=== PATIENT | female | born 1940 | race Caucasian/White ===

== ENCOUNTER 2016-03-09 13:49 | Emergency (ER) | payer BC, MEDICARE ==
[2016-03-09] MEDS ORDERED: METHYLPREDNISOLONE INJ 125 MG/2 ML SDV IV ONE (14:59)
[2016-03-09] MEDS ORDERED: IPRATROPIUM/ALBUTEROL 0.5-2.5 MG/3 ML AMPUL NEB ONE (15:00)
[2016-03-09 15:06] LABS: ABSOLUTE EOSINOPHILS # (AUTO) 0.1 10^3/uL (0.0-0.6); ABSOLUTE LYMPHOCYTES (AUTO) 1.6 10^3/uL (0.5-4.7); ABSOLUTE MONOCYTES (AUTO) 0.4 10^3/uL (0.1-1.4); ABSOLUTE NEUT (AUTO) 5.9 10^3/uL (1.7-8.2); BASOPHILS % (AUTO) 0.3 % (0-2); EOSINOPHILS % (AUTO) 1.5 % (0-6); HEMATOCRIT 43.6 % (36.0-47.0); HEMOGLOBIN 14.7 g/dL (12.0-15.5); HGB HCT DIFFERENCE 0.5; LYMPHOCYTES % (AUTO) 19.9 % (13-45); MEAN CORPUSCULAR HEMOGLOBIN 29.8 pg (27.0-33.4); MEAN CORPUSCULAR HGB CONC 33.8 g/dL (32.0-36.0); MEAN CORPUSCULAR VOLUME 88 fl (80-97); RED BLOOD COUNT 4.93 10^6/uL (3.72-5.28); RED CELL DISTRIBUTION WIDTH 13.6 % (11.5-14.0); SEGMENTED NEUTROPHILS % (AUTO) 73.3 % (42-78); WHITE BLOOD COUNT 8.1 10^3/uL (4.0-10.5)
--- NOTE | 2016-03-09 15:06 | ER Document Report ---
ED Respiratory Problem - General Chief Complaint: Breathing Difficulty Stated Complaint: POSSIBLE RESPIRATORY DISTRESS Time seen by provider: 15:01 Mode of Arrival: Medic Information source: Patient TRAVEL OUTSIDE OF THE [place] IN LAST 30 DAYS: No - HPI Patient complains to provider of: COPD - pt with h/o COPD stopped smoking 2 years ago ("but I still sneak a few every now and then") with c/o wheezing and SOB over the past 2 days. EMS called and pt. given neb and she feels much better now. - Related Data Allergies/Adverse Reactions: oxymorphone HCl [From Opana] Allergy (Severe, Verified 11/25/10 13:44) tramadol [Tramadol] Adverse Reaction (Intermediate, Verified 07/17/11 11:54) Hallucinations Past Medical History - General Information source: Patient - Social History Smoking Status: Current Some Day Smoker Cigarette use (# per day): Yes Chew tobacco use (# tins/day): No Smoking Education Provided: Yes Drug Abuse: None Family History: Reviewed & Not Pertinent Patient has suicidal ideation: No Patient has homicidal ideation: No - Past Medical History Cardiac Medical History: Reports: Hx Atrial Fibrillation, Hx Congestive Heart Failure, Hx Hypercholesterolemia, Hx Hypertension Denies: Hx Coronary Artery Disease, Hx Heart Attack, Hx Peripheral Vascular Disease, Hx Pulmonary Embolism, Hx Heart Murmur Pulmonary Medical History: Reports: Hx COPD Denies: Hx Asthma, Hx Bronchitis, Hx Pneumonia, Hx Respiratory Failure, Hx Sleep Apnea, Hx Tuberculosis Neurological Medical History: Denies: Hx Cerebrovascular Accident, Hx Seizures Renal/ Medical History: Denies: Hx End Stage Renal Disease, Hx Kidney Stones, Hx Ovarian Cysts, Hx Peritoneal Dialysis, Hx Pelvic Inflammatory Disease Malignancy Medical History: Denies: Hx Breast Cancer, Hx Cervical Cancer, Hx Lung Cancer, Hx Ovarian Cancer GI Medical History: Reports: Hx Gastroesophageal Reflux Disease. Denies: Hx Crohn's Disease, Hx Hiatal Hernia, Hx Irritable Bowel, Hx Liver Failure, Hx Ulcer Musculoskeltal Medical History: Denies Hx Arthritis, Denies Hx Fibromyalgia, Denies Hx Multiple Sclerosis, Denies Hx Muscular Dystrophy Psychiatric Medical History: Denies: Hx Dementia Traumatic Medical History: Denies: Hx Fractures Past Surgical History: Reports: Hx Cardiac Surgery - Mitral Valve Replacement, Hx Tonsillectomy. Denies: Hx Appendectomy, Hx Bowel Surgery, Hx Section, Hx Cholecystectomy, Hx Colostomy, Hx Coronary Artery Bypass Graft, Hx Gastric Bypass Surgery, Hx Herniorrhaphy, Hx Hysterectomy, Hx Mastectomy, Hx Pacemaker, Hx Tubal Ligation - Immunizations Hx Diphtheria, Pertussis, Tetanus Vaccination: No Hx Pneumococcal Vaccination: 11/07/11 Review of Systems - Review of Systems Constitutional: No symptoms reported EENT: No symptoms reported Cardiovascular: No symptoms reported Respiratory: See HPI, Short of breath, Wheezing. denies: Cough Gastrointestinal: No symptoms reported Musculoskeletal: No symptoms reported Neurological/Psychological: No symptoms reported Physical Exam - Vital signs Vitals: Resp BP Pulse Ox 18 156/61 H 93 03/09/16 14:08 03/09/16 14:08 03/09/16 14:08 - General General appearance: Appears well In distress: None - HEENT Head: Normocephalic Mouth/Lips: Normal Mucous membranes: Normal Pharynx: Normal Neck: Normal - Respiratory Respiratory status: No respiratory distress Chest status: Nontender Breath sounds: Wheezing - min end-expiratory R>L Chest palpation: Normal - Cardiovascular Rhythm: Regular Heart sounds: Normal auscultation - Abdominal Inspection: Normal Tenderness: Nontender - Extremities General upper extremity: Normal inspection General lower extremity: Normal inspection - Neurological Neuro grossly intact: Yes Cognition: Normal Orientation: AAOx4 Speech: Normal Course - Re-evaluation Re-evalutation: 03/09/16 16:00 pt feels much better after nebs and steroids. No wheezing a time of d/c. Sats 96-99% Expressed desire to go home with daughter. - Vital Signs Vital signs: Temp Pulse Resp BP Pulse Ox 97.9 F 18 156/61 H 93 03/09/16 14:14 03/09/16 14:08 03/09/16 14:08 03/09/16 14:08 - Laboratory Result Diagrams: 03/09/16 14:37 03/09/16 14:37 Laboratory results interpreted by me: 03/09/16 14:37 Carbon Dioxide 31 H BUN 27 H Est GFR (Non-Af Amer) 52 L Glucose 119 H - Diagnostic Test Radiology reviewed: Reports reviewed - nad Discharge - Discharge Clinical Impression: COPD exacerbation, COPD exacerbation Condition: Stable Disposition: HOME, SELF-CARE Additional Instructions: rest, take meds as prescribed, return if worse Prescriptions: Azithromycin [Zithromax Tri-Cuco] 500 mg PO DAILY #1 pkg Methylprednisolone [Medrol Dosepack (4 mg/Tab) 21 Tab/Dosepak] 4 mg PO ASDIR PRN #21 tab.[id number] PRN Reason: Referrals: PASTORA VAZ MD [ACTIVE STAFF] - Follow up as needed
[2016-03-09 15:14] LABS: ALANINE AMINOTRANSFERASE 27 U/L (9-52); ALBUMIN 4.2 g/dL (3.5-5.0); ALKALINE PHOSPHATASE 81 U/L (38-126); ANION GAP 12 (5-19); ASPARTATE AMINO TRANSFERASE 22 U/L (14-36); BILIRUBIN,TOTAL 0.8 mg/dL (0.2-1.3); BLOOD UREA NITROGEN 27 mg/dL (7-20); CALCIUM 9.1 mg/dL (8.4-10.2); CARBON DIOXIDE 31 mmol/L (22-30); CHLORIDE 102 mmol/L (98-107); CREATININE RESULT 1.03 mg/dL (0.52-1.25); GLUCOSE 119 mg/dL (75-110); POTASSIUM 3.9 mmol/L (3.6-5.0); TOTAL PROTEIN 6.9 g/dL (6.3-8.2)
[2016-03-09 16:13] VITALS: BP 139/62
== END 2016-03-09 16:24 | disposition home or self-care (01) ==
LOC: ER 13:49
DX: J44.1 Chronic obstructive pulmonary disease with (acute) exacerbation (principal); F17.210 Nicotine dependence, cigarettes, uncomplicated; I48.91 Unspecified atrial fibrillation; I50.9 Heart failure, unspecified; E78.00 Pure hypercholesterolemia, unspecified; I10 Essential (primary) hypertension; K21.9 Gastro-esophageal reflux disease without esophagitis; Z88.6 Allergy status to analgesic agent; Z95.2 Presence of prosthetic heart valve
CPT/HCPCS: 94640; 99285; 36415; 85025; 80053; 71020; J7620

== ENCOUNTER 2016-07-10 10:38 | Inpatient (IN) | payer BC, MEDICARE ==
[2016-07-10] MEDS ORDERED: IPRATROPIUM/ALBUTEROL 0.5-2.5 MG/3 ML AMPUL NEB ONE ×2 (10:59→11:55)
[2016-07-10] MEDS ORDERED: METHYLPREDNISOLONE INJ 125 MG/2 ML SDV IV ONE (10:59)
--- NOTE | 2016-07-10 11:05 | ER Document Report ---
ED General - General Chief Complaint: Shortness Of Breath Stated Complaint: SHORTNESS OF BREATH Time seen by provider: 10:45 Mode of Arrival: Medic Information source: Patient Notes: 76-year-old female with 2 day history of shortness of breath cough productive of yellow sputum and dyspnea on exertion worse than her baseline. She reports she does not use oxygen at home. Her care physician Theresa Hernández. Patient reports history of congestive heart failure and COPD but for the past 2 days has had symptoms much worse than what she thinks is usual for those to the point now that she cannot and related to room without becoming too short of breath to continue. She denies fever, chills, nausea, vomiting, diarrhea, chest pain, abdominal pain, swelling to extremities, or waking. She reports yesterday she had some sharp pain in her upper back with coughing that resolved with a cough became better and has not recurred. Physical Exam: General: Alert, short of breath able to speak one or 2 words HEENT: Normocephalic. Atraumatic. PERRLA. Extraocular movements intact. Oropharynx clear. Neck: Supple. Non-tender. No JVD Respiratory: Tachypnea Diminished aeration throughout all lung foote scattered wheezes and no accessory muscle use nontender to palpation Cardiovascular: Regular rate and rhythm. PMI not displaced Abdominal: Normal Inspection. Soft, non-tender. No distension. Normal Bowel Sounds. Back: Non-tender. No deformity or step off. 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 Normal Mood. Skin: Warm. Dry. Normal color. TRAVEL OUTSIDE OF THE [place] IN LAST 30 DAYS: No - Related Data Allergies/Adverse Reactions: oxymorphone HCl [From Opana] Allergy (Severe, Verified 11/25/10 13:44) tramadol [Tramadol] Adverse Reaction (Intermediate, Verified 07/17/11 11:54) Hallucinations Past Medical History - Social History Smoking Status: Former Smoker Family History: Reviewed & Not Pertinent - Past Medical History Cardiac Medical History: Reports: Hx Atrial Fibrillation, Hx Congestive Heart Failure, Hx Hypercholesterolemia, Hx Hypertension Denies: Hx Coronary Artery Disease, Hx Heart Attack, Hx Peripheral Vascular Disease, Hx Pulmonary Embolism, Hx Heart Murmur Pulmonary Medical History: Reports: Hx COPD Denies: Hx Asthma, Hx Bronchitis, Hx Pneumonia, Hx Respiratory Failure, Hx Sleep Apnea, Hx Tuberculosis Neurological Medical History: Denies: Hx Cerebrovascular Accident, Hx Seizures Renal/ Medical History: Denies: Hx End Stage Renal Disease, Hx Kidney Stones, Hx Ovarian Cysts, Hx Peritoneal Dialysis, Hx Pelvic Inflammatory Disease Malignancy Medical History: Denies: Hx Breast Cancer, Hx Cervical Cancer, Hx Lung Cancer, Hx Ovarian Cancer GI Medical History: Reports: Hx Gastroesophageal Reflux Disease. Denies: Hx Crohn's Disease, Hx Hiatal Hernia, Hx Irritable Bowel, Hx Liver Failure, Hx Ulcer Musculoskeltal Medical History: Denies Hx Arthritis, Denies Hx Fibromyalgia, Denies Hx Multiple Sclerosis, Denies Hx Muscular Dystrophy Psychiatric Medical History: Denies: Hx Dementia Traumatic Medical History: Denies: Hx Fractures Past Surgical History: Reports: Hx Cardiac Surgery - Mitral Valve Replacement, Hx Tonsillectomy. Denies: Hx Appendectomy, Hx Bowel Surgery, Hx Section, Hx Cholecystectomy, Hx Colostomy, Hx Coronary Artery Bypass Graft, Hx Gastric Bypass Surgery, Hx Herniorrhaphy, Hx Hysterectomy, Hx Mastectomy, Hx Pacemaker, Hx Tubal Ligation - Immunizations Hx Diphtheria, Pertussis, Tetanus Vaccination: No Hx Pneumococcal Vaccination: 11/07/11 Review of Systems - Review of Systems Constitutional: Weight loss - Patient thinks she's lost weight over several months but doesn't know how much. denies: Chills, Fever EENT: denies: Ear pain, Nose pain, Throat pain Cardiovascular: See HPI Respiratory: See HPI Gastrointestinal: denies: Blood in vomit, Black stools, Rectal bleeding Genitourinary: denies: Burning, Dysuria Female Genitourinary: Post menopausal Musculoskeletal: denies: Back pain, Leg swelling Hematologic/Lymphatic: denies: Swollen glands Neurological/Psychological: Weakness - Neurologic related shortness of breath. denies: Numbness Physical Exam - Vital signs Vitals: Resp Pulse Ox 20 95 07/10/16 10:54 07/10/16 10:54 Course - Re-evaluation Re-evalutation: 07/10/16 13:43 Patient continues to have mild rhonchi after aggressive treatment in emergency department an oxygen saturation about 88% on room air with any attempted ambulation. At this point she is not safe for discharge. I discussed case with her physician Dr. Hernández requests ICU admission - Vital Signs Vital signs: Temp Pulse Resp BP Pulse Ox 98.5 F 21 H 97/46 L 93 07/10/16 12:00 07/10/16 13:01 07/10/16 13:01 07/10/16 13:01 - Laboratory Result Diagrams: 07/10/16 11:20 07/10/16 11:20 Laboratory results interpreted by me: 07/10/16 07/10/16 07/10/16 11:20 11:20 11:20 RDW 14.1 H Seg Neutrophils % 84.7 H Lymphocytes % 9.1 L PT 20.8 H APTT 39.8 H Sodium 136.0 L BUN 38 H Est GFR ( Amer) 58 L Est GFR (Non-Af Amer) 48 L Glucose 150 H Direct Bilirubin 0.5 H Creatine Kinase < 20 L NT-Pro-B Natriuret Pep Total Protein 6.0 L Albumin 3.4 L 07/10/16 11:20 RDW Seg Neutrophils % Lymphocytes % PT APTT Sodium BUN Est GFR ( Amer) Est GFR (Non-Af Amer) Glucose Direct Bilirubin Creatine Kinase NT-Pro-B Natriuret Pep 999 H Total Protein Albumin - Diagnostic Test Radiology reviewed: Image reviewed, Reports reviewed - EKG Interpretation by Me Additional EKG results interpreted by me: 07/10/16 11:52 EKG reviewed by myself shows sinus rhythm at 69 no acute changes no significant change 07/25/2015 Discharge - Discharge Clinical Impression: Acute respiratory failure with hypoxemia, Chronic obstructive pulmonary disease with acute exacerbation Condition: Fair Disposition: ADMITTED INPATIENT Admitting Provider: Edgar Unit Admitted: [facility]
[2016-07-10] MEDS ORDERED: CEFTRIAXONE 1 GM/D5W RTU 50 ML IV ONE (11:10)
[2016-07-10] MEDS: MAGNESIUM SULFATE/D5W 100 ML IV SCH ×2 (11:16→14:43)
[2016-07-10 11:46] LABS: ABSOLUTE EOSINOPHILS # (AUTO) 0.1 10^3/uL (0.0-0.6); ABSOLUTE LYMPHOCYTES (AUTO) 0.8 10^3/uL (0.5-4.7); ABSOLUTE MONOCYTES (AUTO) 0.5 10^3/uL (0.1-1.4); ABSOLUTE NEUT (AUTO) 7.4 10^3/uL (1.7-8.2); BASOPHILS % (AUTO) 0.3 % (0-2); EOSINOPHILS % (AUTO) 0.6 % (0-6); HEMATOCRIT 43.8 % (36.0-47.0); HEMOGLOBIN 14.5 g/dL (12.0-15.5); HGB HCT DIFFERENCE -0.3; LYMPHOCYTES % (AUTO) 9.1 % (13-45); MEAN CORPUSCULAR HEMOGLOBIN 30.2 pg (27.0-33.4); MEAN CORPUSCULAR VOLUME 91 fl (80-97); MONOCYTES % (AUTO) 5.3 % (3-13); RED BLOOD COUNT 4.79 10^6/uL (3.72-5.28); RED CELL DISTRIBUTION WIDTH 14.1 % (11.5-14.0); SEGMENTED NEUTROPHILS % (AUTO) 84.7 % (42-78); WHITE BLOOD COUNT 8.7 10^3/uL (4.0-10.5)
[2016-07-10 12:03] LABS: PROTHROMBIN TIME 20.8 SEC (11.4-15.4)
[2016-07-10 12:04] LABS: PARTIAL THROMBOPLASTIN TIME 39.8 SEC (23.5-35.8)
[2016-07-10 12:10] LABS: ALANINE AMINOTRANSFERASE 26 U/L (9-52); ALBUMIN 3.4 g/dL (3.5-5.0); ALKALINE PHOSPHATASE 67 U/L (38-126); ANION GAP 11 (5-19); ASPARTATE AMINO TRANSFERASE 14 U/L (14-36); BILIRUBIN,DIRECT 0.5 mg/dL (0.0-0.4); BILIRUBIN,TOTAL 0.7 mg/dL (0.2-1.3); BLOOD UREA NITROGEN 38 mg/dL (7-20); CARBON DIOXIDE 25 mmol/L (22-30); CHLORIDE 100 mmol/L (98-107); CREATININE RESULT 1.11 mg/dL (0.52-1.25); GLUCOSE 150 mg/dL (75-110); MAGNESIUM 2.3 mg/dL (1.6-2.3); POTASSIUM 4.6 mmol/L (3.6-5.0)
[2016-07-10 12:14] LABS: CREATINE KINASE < 20 U/L (30-135)
[2016-07-10 12:23] LABS: CREATINE KINASE MB < 0.22 ng/mL (<4.55); TROPONIN I < 0.012 ng/mL
--- NOTE | 2016-07-10 12:47 | EKG REPORT ---
SEVERITY:- NORMAL ECG - SINUS RHYTHM : Confirmed by: Wei Renner MD 10-Jul-2016 12:46:18
[2016-07-10] MEDS ORDERED: ACETAMINOPHEN 325 MG TABLET PO PRN (13:39)
[2016-07-10] MEDS ORDERED: METHYLPREDNISOLONE INJ 40 MG/1 ML SDV IV SCH (14:00)
[2016-07-10] MEDS: IPRATROPIUM/ALBUTEROL 0.5-2.5 MG/3 ML AMPUL NEB SCH ×2 (15:27→20:38)
[2016-07-10] MEDS ORDERED: DEXTROSE 50%-WATER 25 GM/50 ML DISP.SYRIN IV PRN ×2 (15:29)
[2016-07-10] MEDS ORDERED: DEXTROSE 40% GEL 15 GM TUBE PO PRN ×2 (15:29)
[2016-07-10] MEDS ORDERED: GLUCAGON,HUMAN RECOMB 1 MG INJ IM PRN (15:29)
[2016-07-10] MEDS ORDERED: (PENDING PHARMACY ID) (Oxycodone Hcl/Acetaminophen [Percocet 10-325 Mg Tablet] 1 EACH) PO PRN (16:42)
[2016-07-10] MEDS: METHYLPREDNISOLONE INJ 125 MG/2 ML SDV IV SCH ×2 (17:40→21:18)
--- NOTE | 2016-07-10 17:55 | PDOC H&P ---
History of Present Illness Admission Date/PCP: ANNA VILLA MD Patient complains of: sob History of Present Illness: FLORECITA REILLY is a 76 year old female 76-year-old female with a significant history of the mitral valve in a history of the chronic A. fib and history of the COPD and history of the smoker came to the emergency department with severe complaining of cough congestions and unable to complete since last 3-4 days. Patient and it was a department was given IV steroid and also giving nebulizer treatments and feeling much better. Patient's denied any chest pain denied any nausea no vomiting. pt is also very noncompliance and and not follow properly for Coumadin to her cardiology Patient is not checking the Coumadin since last 2 months and patient's current INR was 1.7 to Patient also seen Dr. Cervantes at the [facility] Patient's daughter was on the bedside and patient's currently expressed a no code Past Medical History Cardiac Medical History: Reports: Atrial Fibrillation, Congestive Heart Failure , Hyperlipidema, Hypertension Denies: Coronary Artery Disease, Myocardial Infarction, Peripheral Vascular Disease, Pulmonary Embolism, Heart Murmur Cardiac History Note: mitral valve replacement Pulmonary Medical History: Reports: Chronic Obstructive Pulmonary Disease (COPD) Denies: Asthma, Bronchitis, Pneumonia, Respiratory Failure, Sleep Apnea, Tuberculosis Neurological Medical History: Denies: Seizures Endocrine Medical History: Reports: Other Endocrine History Note: impair fastig glucose last a1c was 6 Renal/ Medical History: Denies: End Stage Renal Disease Malignancy Medical History: Denies: Breast Cancer, Cervical Cancer, Lung Cancer, Ovarian Cancer GI Medical History: Reports: Gastroesophageal Reflux Disease Denies: Crohn's Disease, Hiatal Hernia Musculoskeltal Medical History: Denies: Arthritis, Fibromyalgia Psychiatric Medical History: Denies: Dementia Hematology: Denies: Anemia Past Surgical History Past Surgical History: Reports: Tonsillectomy, Valve Replacement Denies: Amputation, Appendectomy, Section, Cholecystectomy, Colostomy, Coronary Artery Bypass Graft, Gastric Bypass Surgery, Herniorrhaphy, Hysterectomy, Mastectomy, Pacemaker, Tubal Ligation Social History Smoking Status: Current Every Day Smoker Frequency of Alcohol Use: None Hx Recreational Drug Use: No Drugs: None Hx Prescription Drug Abuse: No Family History Family History: Reviewed & Not Pertinent Parental Family History Reviewed: Yes Children Family History Reviewed: Yes Sibling(s) Family History Reviewed.: Yes Medication/Allergy Home Medications: Budesonide/Formoterol Fumarate [Symbicort Hfa 160-4.5 Mcg Inhaler 6 gm] 1 puff IH DAILY 07/10/16 Carvedilol [Coreg 25 mg Tablet] 25 mg PO Q12 07/10/16 Dofetilide [Tikosyn 125 Mcg Capsule] 125 mcg PO Q12 07/10/16 Furosemide [Lasix] 40 mg PO DAILY 07/10/16 Lisinopril [Prinivil 10 mg Tablet] 10 mg PO Q12 07/10/16 Oxycodone HCl/Acetaminophen [Percocet 10-325 Mg Tablet] 1 each PO TIDP PRN 07/10 Warfarin Sodium [Coumadin 4 mg Tablet] 4 mg PO QHS 07/10/16 Allergies/Adverse Reactions: oxymorphone HCl [From Opana] Allergy (Severe, Verified 11/25/10 13:44) tramadol [Tramadol] Adverse Reaction (Intermediate, Verified 07/17/11 11:54) Hallucinations Review of Systems Constitutional: ABSENT: chills, fever(s), headache(s), weight gain, weight loss Eyes: ABSENT: visual disturbances Ears: ABSENT: hearing changes Cardiovascular: PRESENT: dyspnea on exertion. ABSENT: chest pain, edema, orthropnea, palpitations Respiratory: PRESENT: cough, dyspnea. ABSENT: hemoptysis Gastrointestinal: ABSENT: abdominal pain, constipation, diarrhea, hematemesis, hematochezia, nausea, vomiting Genitourinary: ABSENT: dysuria, hematuria Musculoskeletal: ABSENT: joint swelling Integumentary: ABSENT: rash, wounds Neurological: ABSENT: abnormal gait, abnormal speech, confusion, dizziness, focal weakness, syncope Psychiatric: ABSENT: anxiety, depression, homidical ideation, suicidal ideation Endocrine: ABSENT: cold intolerance, heat intolerance, menstrual abnormalities, polydipsia, polyuria Hematologic/Lymphatic: ABSENT: easy bleeding, easy bruising, lymphadenopathy Physical Exam Vital Signs: Temp Pulse Resp BP Pulse Ox 98.5 F 21 H 97/46 L 93 07/10/16 12:00 07/10/16 13:01 07/10/16 13:01 07/10/16 13:01 Intake & Output 07/09/16 07/10/16 07/11/16 06:59 06:59 06:59 Weight 74.843 kg General appearance: PRESENT: no acute distress, well-developed, well-nourished Head exam: PRESENT: atraumatic, normocephalic Eye exam: PRESENT: conjunctiva pink, EOMI, PERRLA. ABSENT: scleral icterus Ear exam: PRESENT: normal external ear exam Mouth exam: PRESENT: moist, tongue midline Neck exam: PRESENT: full ROM. ABSENT: carotid bruit, JVD, lymphadenopathy, thyromegaly Respiratory exam: PRESENT: wheezes Cardiovascular exam: PRESENT: RRR. ABSENT: diastolic murmur, rubs, systolic murmur Pulses: PRESENT: normal dorsalis pedis pul, +2 pedal pulses bilateral Vascular exam: PRESENT: normal capillary refill GI/Abdominal exam: PRESENT: normal bowel sounds, soft. ABSENT: distended, guarding, mass, organolmegaly, rebound, tenderness Rectal exam: PRESENT: deferred Neurological exam: PRESENT: alert, awake, oriented to person, oriented to place , oriented to time, oriented to situation, CN II-XII grossly intact. ABSENT: motor sensory deficit Psychiatric exam: PRESENT: appropriate affect, normal mood. ABSENT: homicidal ideation, suicidal ideation Skin exam: PRESENT: dry, intact, warm. ABSENT: cyanosis, rash Results Laboratory Results: 07/10/16 11:20 07/10/16 11:20 07/10/16 07/10/16 11:20 11:20 WBC 8.7 RBC 4.79 Hgb 14.5 Hct 43.8 MCV 91 MCH 30.2 MCHC 33.0 RDW 14.1 H Plt Count 160 Seg Neutrophils % 84.7 H Lymphocytes % 9.1 L Monocytes % 5.3 Eosinophils % 0.6 Basophils % 0.3 Absolute Neutrophils 7.4 Absolute Lymphocytes 0.8 Absolute Monocytes 0.5 Absolute Eosinophils 0.1 Absolute Basophils 0.0 Sodium 136.0 L Potassium 4.6 Chloride 100 Carbon Dioxide 25 Anion Gap 11 BUN 38 H Creatinine 1.11 Est GFR ( Amer) 58 L Est GFR (Non-Af Amer) 48 L Glucose 150 H Calcium 9.0 Magnesium 2.3 Total Bilirubin 0.7 AST 14 ALT 26 Alkaline Phosphatase 67 Total Protein 6.0 L Albumin 3.4 L 07/10/16 07/10/16 11:20 11:20 Creatine Kinase < 20 L CK-MB (CK-2) < 0.22 Troponin I < 0.012 NT-Pro-B Natriuret Pep 999 H Impressions: Chest X-Ray 07/10/16 10:58 IMPRESSION: No acute findings Assessment & Plan - Diagnosis (1) Acute exacerbation of chronic obstructive pulmonary disease (COPD) Is this a current diagnosis for this admission?: YesPlan: admit in [facility] start duoneb/solumedrol (2) Acute hypoxemic respiratory failure Is this a current diagnosis for this admission?: YesPlan: o2 supp duoneb steroid (3) CHF (congestive heart failure) Qualifiers: Congestive heart failure type: diastolic Is this a current diagnosis for this admission?: YesPlan: stable (4) Atrial fibrillation Qualifiers: Atrial fibrillation type: chronic Qualified Code(s): I48.2 - Chronic atrial fibrillation Is this a current diagnosis for this admission?: YesPlan: pt see dr cervantes at [facility] very non complince about coumadin (5) Shortness of breath Is this a current diagnosis for this admission?: YesPlan: from copd/smoker (6) History of mitral valve repair Is this a current diagnosis for this admission?: YesPlan: 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
[2016-07-10] MEDS: OXYCODONE-ACETAMINOPHEN 5-325 MG TABLET PO PRN (18:19)
[2016-07-10] MEDS: OXYCODONE HCL IR 5 MG TABLET PO PRN (18:20)
[2016-07-10] MEDS: LISINOPRIL 10 MG TABLET PO SCH (21:18)
[2016-07-10] MEDS: WARFARIN SODIUM 3 MG TABLET PO SCH (21:19)
[2016-07-10] MEDS: CARVEDILOL 12.5 MG TABLET PO SCH (21:19)
[2016-07-10] MEDS: DOFETILIDE 125 MCG CAPSULE PO SCH (21:41)
[2016-07-10] MEDS ORDERED: (PENDING PHARMACY ID) (Warfarin Sodium 6 MG) PO SCH (22:00)
[2016-07-10] MEDS: INSULIN LISPRO 100 UNIT/ML 3 ML VIAL SUBCUT PRN (23:26)
[2016-07-11] MEDS: OXYCODONE HCL IR 5 MG TABLET PO PRN ×3 (02:07→21:39)
[2016-07-11] MEDS: OXYCODONE-ACETAMINOPHEN 5-325 MG TABLET PO PRN ×3 (02:07→21:40)
[2016-07-11] MEDS: METHYLPREDNISOLONE INJ 125 MG/2 ML SDV IV SCH ×3 (05:20→21:40)
[2016-07-11 05:51] LABS: ABSOLUTE LYMPHOCYTES (AUTO) 0.6 10^3/uL (0.5-4.7); ABSOLUTE MONOCYTES (AUTO) 0.2 10^3/uL (0.1-1.4); ABSOLUTE NEUT (AUTO) 5.6 10^3/uL (1.7-8.2); BASOPHILS % (AUTO) 0.3 % (0-2); HEMATOCRIT 38.3 % (36.0-47.0); HEMOGLOBIN 13.3 g/dL (12.0-15.5); HGB HCT DIFFERENCE 1.6; LYMPHOCYTES % (AUTO) 9.1 % (13-45); MEAN CORPUSCULAR HEMOGLOBIN 30.6 pg (27.0-33.4); MEAN CORPUSCULAR HGB CONC 34.7 g/dL (32.0-36.0); MEAN CORPUSCULAR VOLUME 88 fl (80-97); MONOCYTES % (AUTO) 2.9 % (3-13); RED BLOOD COUNT 4.33 10^6/uL (3.72-5.28); RED CELL DISTRIBUTION WIDTH 13.8 % (11.5-14.0); SEGMENTED NEUTROPHILS % (AUTO) 87.7 % (42-78); WHITE BLOOD COUNT 6.4 10^3/uL (4.0-10.5)
[2016-07-11 06:13] LABS: ANION GAP 10 (5-19); BLOOD UREA NITROGEN 51 mg/dL (7-20); CALCIUM 10.1 mg/dL (8.4-10.2); CARBON DIOXIDE 27 mmol/L (22-30); CHLORIDE 99 mmol/L (98-107); CREATININE RESULT 1.12 mg/dL (0.52-1.25); GLUCOSE 169 mg/dL (75-110); MAGNESIUM 2.7 mg/dL (1.6-2.3); POTASSIUM 4.8 mmol/L (3.6-5.0); SODIUM 136.3 mmol/L (137-145)
[2016-07-11 06:27] LABS: CREATINE KINASE < 20 U/L (30-135)
[2016-07-11 06:35] LABS: TROPONIN I < 0.012 ng/mL
[2016-07-11] MEDS: INSULIN LISPRO 100 UNIT/ML 3 ML VIAL SUBCUT PRN ×4 (07:52→22:51)
[2016-07-11] MEDS: IPRATROPIUM/ALBUTEROL 0.5-2.5 MG/3 ML AMPUL NEB SCH ×4 (07:58→20:06)
[2016-07-11] MEDS: DOFETILIDE 125 MCG CAPSULE PO SCH ×2 (10:39→21:42)
[2016-07-11] MEDS: LISINOPRIL 10 MG TABLET PO SCH ×2 (10:40→21:40)
[2016-07-11] MEDS: FUROSEMIDE 40 MG TABLET PO SCH (10:40)
[2016-07-11] MEDS: CARVEDILOL 12.5 MG TABLET PO SCH ×2 (10:40→21:41)
[2016-07-11] MEDS: CEFTRIAXONE 1 GM/D5W RTU 1 GM/50 ML RTUPB IV SCH (10:41)
--- NOTE | 2016-07-11 14:13 | PDOC PROGRESS REPORT ---
Subjective Progress Note for:: 07/11/16 Subjective:: Patient reported improvement in her breathing. Less coughing. No chest pain. No nausea, vomiting, abdominal pain or diarrhea. Patient brought up issue of need to be checked for possible NTM infection? per her instruction via a mail from [facility]. No current fever, chills, or diaphoresis. Physical Exam Vital Signs: Temp Pulse Resp BP Pulse Ox 98.4 F 72 17 123/47 L 95 07/11/16 11:21 07/11/16 12:00 07/11/16 12:00 07/11/16 11:21 07/11/16 11:21 Intake & Output 07/10/16 07/11/16 07/12/16 06:59 06:59 06:59 Intake Total 611 Balance 611 Weight 73.3 kg General appearance: PRESENT: no acute distress, cooperative Head exam: PRESENT: atraumatic, normocephalic Eye exam: PRESENT: conjunctiva pink, EOMI, PERRLA. ABSENT: scleral icterus Respiratory exam: PRESENT: decreased breath sounds - at lung bases, rhonchi - end expiratory phase Cardiovascular exam: PRESENT: RRR. ABSENT: diastolic murmur, rubs, systolic murmur GI/Abdominal exam: PRESENT: normal bowel sounds, soft. ABSENT: distended, guarding, mass, organolmegaly, rebound, tenderness Extremities exam: ABSENT: pedal edema Musculoskeletal exam: PRESENT: deformity - related to joint involvement with arthritis Neurological exam: PRESENT: alert, awake, oriented to person, oriented to place , oriented to time, oriented to situation, CN II-XII grossly intact. ABSENT: motor sensory deficit Psychiatric exam: PRESENT: appropriate affect, normal mood. ABSENT: homicidal ideation, suicidal ideation Skin exam: PRESENT: dry, intact, warm. ABSENT: cyanosis, rash Results Laboratory Results: 07/11/16 05:39 07/11/16 05:39 07/11/16 07/11/16 05:39 05:39 WBC 6.4 RBC 4.33 Hgb 13.3 Hct 38.3 MCV 88 MCH 30.6 MCHC 34.7 RDW 13.8 Plt Count 149 L Seg Neutrophils % 87.7 H Lymphocytes % 9.1 L Monocytes % 2.9 L Eosinophils % 0.0 Basophils % 0.3 Absolute Neutrophils 5.6 Absolute Lymphocytes 0.6 Absolute Monocytes 0.2 Absolute Eosinophils 0.0 Absolute Basophils 0.0 Sodium 136.3 L Potassium 4.8 Chloride 99 Carbon Dioxide 27 Anion Gap 10 BUN 51 H Creatinine 1.12 Est GFR ( Amer) 57 L Est GFR (Non-Af Amer) 47 L Glucose 169 H Calcium 10.1 Magnesium 2.7 H 07/10/16 07/10/16 07/10/16 17:21 17:21 23:24 Creatine Kinase 22 L < 20 L Troponin I < 0.012 NT-Pro-B Natriuret Pep 07/10/16 07/11/16 07/11/16 23:24 05:39 05:39 Creatine Kinase < 20 L Troponin I < 0.012 < 0.012 NT-Pro-B Natriuret Pep 990 H Impressions: Chest X-Ray 07/10/16 10:58 IMPRESSION: No acute findings Assessment & Plan - Diagnosis (1) Gram-positive cocci bacteremia Is this a current diagnosis for this admission?: YesPlan: Mainly in 1 bottle of blood culture. Maintain on IV Rocephin and add IV Levofloxacin. (2) HTN (hypertension) Qualifiers: Hypertension type: essential hypertension Qualified Code(s): I10 - Essential (primary) hypertension Is this a current diagnosis for this admission?: YesPlan: Maintain on current medication management. (3) HLD (hyperlipidemia) Qualifiers: Hyperlipidemia type: pure hypercholesterolemia Qualified Code(s): E78.00 - Pure hypercholesterolemia, unspecified; E78.0 - Pure hypercholesterolemia Is this a current diagnosis for this admission?: YesPlan: See covering attending physician. (4) Acute exacerbation of chronic obstructive pulmonary disease (COPD) Is this a current diagnosis for this admission?: YesPlan: Maintain on current medication management. I will stat tapering down on her IV Solu Medrol. (5) Atrial fibrillation Qualifiers: Atrial fibrillation type: chronic Qualified Code(s): I48.2 - Chronic atrial fibrillation Is this a current diagnosis for this admission?: YesPlan: Continue on current mediation management. Monitor INR and adjust dosage of Coumadin as necessary. 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
[2016-07-11] MEDS: LEVOFLOXACIN 500 MG/D5W RTU 500 MG/100 ML RTUPB IV SCH (15:41)
[2016-07-11] MEDS ORDERED: SENNOSIDES/DOCUSATE 8.6-50 MG 1 EACH TABLET PO ONE (18:00)
[2016-07-11] MEDS: WARFARIN SODIUM 3 MG TABLET PO SCH (21:41)
[2016-07-12] MEDS: METHYLPREDNISOLONE INJ 125 MG/2 ML SDV IV SCH ×2 (05:34→13:46)
[2016-07-12 06:39] LABS: ABSOLUTE LYMPHOCYTES (AUTO) 0.9 10^3/uL (0.5-4.7); ABSOLUTE MONOCYTES (AUTO) 0.4 10^3/uL (0.1-1.4); ABSOLUTE NEUT (AUTO) 12.3 10^3/uL (1.7-8.2); BASOPHILS % (AUTO) 0.2 % (0-2); EOSINOPHILS % (AUTO) 0.1 % (0-6); HEMATOCRIT 37.9 % (36.0-47.0); HEMOGLOBIN 12.7 g/dL (12.0-15.5); HGB HCT DIFFERENCE 0.2; LYMPHOCYTES % (AUTO) 6.3 % (13-45); MEAN CORPUSCULAR HEMOGLOBIN 30.1 pg (27.0-33.4); MEAN CORPUSCULAR HGB CONC 33.4 g/dL (32.0-36.0); MEAN CORPUSCULAR VOLUME 90 fl (80-97); SEGMENTED NEUTROPHILS % (AUTO) 90.4 % (42-78)
[2016-07-12 06:53] LABS: WHITE BLOOD COUNT 13.6 10^3/uL (4.0-10.5)
[2016-07-12 06:58] LABS: ANION GAP 7 (5-19); BLOOD UREA NITROGEN 54 mg/dL (7-20); CALCIUM 10.4 mg/dL (8.4-10.2); CARBON DIOXIDE 28 mmol/L (22-30); CHLORIDE 101 mmol/L (98-107); CREATININE RESULT 1.08 mg/dL (0.52-1.25); GLUCOSE 143 mg/dL (75-110); MAGNESIUM 2.2 mg/dL (1.6-2.3); SODIUM 135.7 mmol/L (137-145)
[2016-07-12] MEDS: IPRATROPIUM/ALBUTEROL 0.5-2.5 MG/3 ML AMPUL NEB SCH ×4 (08:36→20:25)
[2016-07-12 08:37] LABS: PROTHROMBIN TIME 39.8 SEC (11.4-15.4)
[2016-07-12] MEDS: CARVEDILOL 12.5 MG TABLET PO SCH ×2 (11:11→21:11)
[2016-07-12] MEDS: FUROSEMIDE 40 MG TABLET PO SCH (11:11)
[2016-07-12] MEDS: OXYCODONE-ACETAMINOPHEN 5-325 MG TABLET PO PRN ×2 (11:12→19:35)
[2016-07-12] MEDS: LISINOPRIL 10 MG TABLET PO SCH ×2 (11:12→21:12)
[2016-07-12] MEDS: OXYCODONE HCL IR 5 MG TABLET PO PRN ×2 (11:12→19:35)
[2016-07-12] MEDS: DOFETILIDE 125 MCG CAPSULE PO SCH ×2 (11:12→21:14)
[2016-07-12] MEDS: CEFTRIAXONE 1 GM/D5W RTU 1 GM/50 ML RTUPB IV SCH (11:13)
[2016-07-12] MEDS: INSULIN LISPRO 100 UNIT/ML 3 ML VIAL SUBCUT PRN ×2 (12:58→17:07)
--- NOTE | 2016-07-12 14:21 | PDOC PROGRESS REPORT ---
Subjective Progress Note for:: 07/12/16 Subjective:: Patient reported improvement in her breathing. She is currently on room air with saturation in upper 90's. Less coughing. No chest pain. No nausea, vomiting , abdominal pain or diarrhea. No current fever, chills, or diaphoresis. Physical Exam Vital Signs: Temp Pulse Resp BP Pulse Ox 97.6 F 69 16 141/49 H 96 07/12/16 12:04 07/12/16 12:08 07/12/16 12:08 07/12/16 12:04 07/12/16 12:04 Intake & Output 07/11/16 07/12/16 07/13/16 06:59 06:59 06:59 Intake Total 848 947 100 Balance 848 947 100 Weight 73.3 kg 75.2 kg Physical Exam: General appearance: PRESENT: no acute distress, cooperative Head exam: PRESENT: atraumatic, normocephalic Eye exam: PRESENT: conjunctiva pink, EOMI, PERRLA. ABSENT: scleral icterus Respiratory exam: PRESENT: decreased breath sounds - at lung bases, rhonchi - end expiratory phase Cardiovascular exam: PRESENT: RRR. ABSENT: diastolic murmur, rubs, systolic murmur GI/Abdominal exam: PRESENT: normal bowel sounds, soft. ABSENT: distended, guarding, mass, organomegaly, rebound, tenderness Extremities exam: ABSENT: pedal edema Musculoskeletal exam: PRESENT: deformity - related to joint involvement with arthritis Neurological exam: PRESENT: alert, awake, oriented to person, oriented to place , oriented to time, oriented to situation, CN II-XII grossly intact. ABSENT: motor sensory deficit Psychiatric exam: PRESENT: appropriate affect, normal mood. ABSENT: homicidal ideation, suicidal ideation Skin exam: PRESENT: dry, intact, warm. ABSENT: cyanosis, rash Results Laboratory Results: 07/12/16 05:58 07/12/16 05:58 07/12/16 07/12/16 05:58 05:58 WBC 13.6 H D RBC 4.20 Hgb 12.7 Hct 37.9 MCV 90 MCH 30.1 MCHC 33.4 RDW 14.0 Plt Count 182 Seg Neutrophils % 90.4 H Lymphocytes % 6.3 L Monocytes % 3.0 Eosinophils % 0.1 Basophils % 0.2 Absolute Neutrophils 12.3 H Absolute Lymphocytes 0.9 Absolute Monocytes 0.4 Absolute Eosinophils 0.0 Absolute Basophils 0.0 Sodium 135.7 L Potassium 5.0 Chloride 101 Carbon Dioxide 28 Anion Gap 7 BUN 54 H Creatinine 1.08 Est GFR ( Amer) > 60 Est GFR (Non-Af Amer) 49 L Glucose 143 H Calcium 10.4 H Magnesium 2.2 07/10/16 07/10/16 07/10/16 17:21 17:21 23:24 Creatine Kinase 22 L < 20 L Troponin I < 0.012 NT-Pro-B Natriuret Pep 07/10/16 07/11/16 07/11/16 23:24 05:39 05:39 Creatine Kinase < 20 L Troponin I < 0.012 < 0.012 NT-Pro-B Natriuret Pep 990 H 07/12/16 05:58 Creatine Kinase Troponin I NT-Pro-B Natriuret Pep 2160 H Impressions: Chest X-Ray 07/10/16 10:58 IMPRESSION: No acute findings Assessment & Plan - Diagnosis (1) Gram-positive cocci bacteremia Is this a current diagnosis for this admission?: Yes (2) HTN (hypertension) Qualifiers: Hypertension type: essential hypertension Qualified Code(s): I10 - Essential (primary) hypertension Is this a current diagnosis for this admission?: Yes (3) HLD (hyperlipidemia) Qualifiers: Hyperlipidemia type: pure hypercholesterolemia Qualified Code(s): E78.00 - Pure hypercholesterolemia, unspecified; E78.0 - Pure hypercholesterolemia Is this a current diagnosis for this admission?: Yes (4) Acute exacerbation of chronic obstructive pulmonary disease (COPD) Is this a current diagnosis for this admission?: Yes (5) Atrial fibrillation Qualifiers: Atrial fibrillation type: chronic Qualified Code(s): I48.2 - Chronic atrial fibrillation Is this a current diagnosis for this admission?: Yes - Time Time Spent with patient: 25-34 minutes Medications reviewed and adjusted accordingly: Yes Anticipated discharge: Home with Homehealth - Inpatient Certification Medical Necessity: Need Close Monitoring Due to Risk of Patient Decompensation, Need For IV Fluids, Need For Continuous Telemetry Monitoring, Need for IV Antibiotics, Risk of Complication if Not Cared For in Hospital Post Hospital Care: D/C Street And Building Decorator Documentation - Plan Summary Plan Summary: See covering physician orders.
[2016-07-12] MEDS: LEVOFLOXACIN 500 MG/D5W RTU 500 MG/100 ML RTUPB IV SCH (15:57)
[2016-07-12] MEDS: WARFARIN SODIUM 3 MG TABLET PO SCH (21:12)
[2016-07-12] MEDS: METHYLPREDNISOLONE INJ 40 MG/1 ML SDV IV SCH (21:12)
[2016-07-13] MEDS: OXYCODONE-ACETAMINOPHEN 5-325 MG TABLET PO PRN ×3 (03:19→22:57)
[2016-07-13] MEDS: OXYCODONE HCL IR 5 MG TABLET PO PRN ×2 (03:19→22:56)
[2016-07-13 05:32] LABS: ABSOLUTE LYMPHOCYTES (AUTO) 0.8 10^3/uL (0.5-4.7); ABSOLUTE MONOCYTES (AUTO) 0.3 10^3/uL (0.1-1.4); ABSOLUTE NEUT (AUTO) 10.5 10^3/uL (1.7-8.2); BASOPHILS % (AUTO) 0.2 % (0-2); HEMATOCRIT 37.5 % (36.0-47.0); HEMOGLOBIN 12.9 g/dL (12.0-15.5); HGB HCT DIFFERENCE 1.2; LYMPHOCYTES % (AUTO) 6.5 % (13-45); MEAN CORPUSCULAR HEMOGLOBIN 30.7 pg (27.0-33.4); MEAN CORPUSCULAR HGB CONC 34.4 g/dL (32.0-36.0); MEAN CORPUSCULAR VOLUME 89 fl (80-97); MONOCYTES % (AUTO) 2.7 % (3-13); RED BLOOD COUNT 4.21 10^6/uL (3.72-5.28); RED CELL DISTRIBUTION WIDTH 13.6 % (11.5-14.0); SEGMENTED NEUTROPHILS % (AUTO) 90.6 % (42-78); WHITE BLOOD COUNT 11.6 10^3/uL (4.0-10.5)
[2016-07-13 06:00] LABS: ANION GAP 10 (5-19); BLOOD UREA NITROGEN 48 mg/dL (7-20); CALCIUM 9.6 mg/dL (8.4-10.2); CARBON DIOXIDE 28 mmol/L (22-30); CHLORIDE 99 mmol/L (98-107); CREATININE RESULT 0.97 mg/dL (0.52-1.25); GLUCOSE 176 mg/dL (75-110); POTASSIUM 4.6 mmol/L (3.6-5.0); SODIUM 136.9 mmol/L (137-145)
[2016-07-13] MEDS: METHYLPREDNISOLONE INJ 40 MG/1 ML SDV IV SCH (06:30)
[2016-07-13 06:50] LABS: PROTHROMBIN TIME 50.9 SEC (11.4-15.4)
[2016-07-13] MEDS: INSULIN LISPRO 100 UNIT/ML 3 ML VIAL SUBCUT PRN ×3 (08:19→23:08)
[2016-07-13] MEDS: IPRATROPIUM/ALBUTEROL 0.5-2.5 MG/3 ML AMPUL NEB SCH ×4 (08:31→20:11)
[2016-07-13] MEDS ORDERED: PREDNISONE 20 MG TABLET PO SCH (10:00)
[2016-07-13] MEDS: CEFTRIAXONE 1 GM/D5W RTU 1 GM/50 ML RTUPB IV SCH (10:17)
[2016-07-13] MEDS: FUROSEMIDE 40 MG TABLET PO SCH (10:18)
[2016-07-13] MEDS: CARVEDILOL 12.5 MG TABLET PO SCH ×2 (10:18→22:57)
[2016-07-13] MEDS: LISINOPRIL 10 MG TABLET PO SCH ×2 (10:18→22:56)
[2016-07-13] MEDS: DOFETILIDE 125 MCG CAPSULE PO SCH ×2 (10:19→22:57)
--- NOTE | 2016-07-13 10:20 | PDOC PROGRESS REPORT ---
Subjective Progress Note for:: 07/13/16 Subjective:: Patient is feeling better no chest pain no shortness of the breath patient INR is elevated Physical Exam Vital Signs: Temp Pulse Resp BP Pulse Ox 97.6 F 71 16 152/74 H 95 07/13/16 07:31 07/13/16 08:31 07/13/16 08:31 07/13/16 07:31 07/13/16 08:31 Intake & Output 07/12/16 07/13/16 07/14/16 06:59 06:59 06:59 Intake Total 947 1005 Balance 947 1005 Weight 75.2 kg 75.4 kg General appearance: PRESENT: no acute distress, well-developed, well-nourished Head exam: PRESENT: atraumatic, normocephalic Eye exam: PRESENT: conjunctiva pink, EOMI, PERRLA. ABSENT: scleral icterus Ear exam: PRESENT: normal external ear exam Mouth exam: PRESENT: moist, tongue midline Neck exam: PRESENT: full ROM. ABSENT: carotid bruit, JVD, lymphadenopathy, thyromegaly Respiratory exam: PRESENT: clear to auscultation dot Cardiovascular exam: PRESENT: RRR. ABSENT: diastolic murmur, rubs, systolic murmur Pulses: PRESENT: normal dorsalis pedis pul, +2 pedal pulses bilateral Vascular exam: PRESENT: normal capillary refill GI/Abdominal exam: PRESENT: normal bowel sounds, soft. ABSENT: distended, guarding, mass, organolmegaly, rebound, tenderness Rectal exam: PRESENT: deferred Neurological exam: PRESENT: alert, awake, oriented to person, oriented to place , oriented to time, oriented to situation, CN II-XII grossly intact. ABSENT: motor sensory deficit Psychiatric exam: PRESENT: appropriate affect, normal mood. ABSENT: homicidal ideation, suicidal ideation Skin exam: PRESENT: dry, intact, warm. ABSENT: cyanosis, rash Results Laboratory Results: 07/13/16 04:36 07/13/16 04:36 07/13/16 07/13/16 04:36 04:36 WBC 11.6 H RBC 4.21 Hgb 12.9 Hct 37.5 MCV 89 MCH 30.7 MCHC 34.4 RDW 13.6 Plt Count 194 Seg Neutrophils % 90.6 H Lymphocytes % 6.5 L Monocytes % 2.7 L Eosinophils % 0.0 Basophils % 0.2 Absolute Neutrophils 10.5 H Absolute Lymphocytes 0.8 Absolute Monocytes 0.3 Absolute Eosinophils 0.0 Absolute Basophils 0.0 Sodium 136.9 L Potassium 4.6 Chloride 99 Carbon Dioxide 28 Anion Gap 10 BUN 48 H Creatinine 0.97 Est GFR ( Amer) > 60 Est GFR (Non-Af Amer) 56 L Glucose 176 H Calcium 9.6 07/10/16 07/10/16 07/10/16 17:21 17:21 23:24 Creatine Kinase 22 L < 20 L Troponin I < 0.012 NT-Pro-B Natriuret Pep 07/10/16 07/11/16 07/11/16 23:24 05:39 05:39 Creatine Kinase < 20 L Troponin I < 0.012 < 0.012 NT-Pro-B Natriuret Pep 990 H 07/12/16 07/13/16 05:58 04:36 Creatine Kinase Troponin I NT-Pro-B Natriuret Pep 2160 H 2640 H Impressions: Chest X-Ray 07/13/16 00:00 IMPRESSION: Obstructive lung disease. No acute findings. Chronic scarring anterior right lower lung Assessment & Plan - Diagnosis (1) Acute exacerbation of chronic obstructive pulmonary disease (COPD) Is this a current diagnosis for this admission?: YesPlan: DC the IV Solu-Medrol and start on the p.o. prednisone and continues to nebulizer treatment (2) Acute hypoxemic respiratory failure Is this a current diagnosis for this admission?: YesPlan: Currently all stable discussed with the nursing staff to walk the patient's with and without oxygen (3) CHF (congestive heart failure) Qualifiers: Congestive heart failure type: diastolic Is this a current diagnosis for this admission?: YesPlan: stable (4) Atrial fibrillation Qualifiers: Atrial fibrillation type: chronic Qualified Code(s): I48.2 - Chronic atrial fibrillation Is this a current diagnosis for this admission?: YesPlan: And INR is high we hold the Coumadin today (5) Shortness of breath Is this a current diagnosis for this admission?: YesPlan: All resolving from the COPD (6) History of mitral valve repair Is this a current diagnosis for this admission?: YesPlan: Follow-up with the cardiology - Time Time Spent with patient: 15-24 minutes Medications reviewed and adjusted accordingly: Yes Anticipated discharge: Home Within: Other - Inpatient Certification Medical Necessity: Need Close Monitoring Due to Risk of Patient Decompensation Post Hospital Care: D/C Policy Officer Documentation - Plan Summary Plan Summary: Hold the Coumadin tonight and repeat the PT/INR in the morning get the physical therapy evaluations get the oxygen evaluations and DC the IV Solu-Medrol and start on a p.o. steroid
[2016-07-13] MEDS: LEVOFLOXACIN 500 MG TABLET PO SCH (14:53)
[2016-07-14 05:12] LABS: ANION GAP 6 (5-19); BLOOD UREA NITROGEN 43 mg/dL (7-20); CALCIUM 9.6 mg/dL (8.4-10.2); CARBON DIOXIDE 33 mmol/L (22-30); CHLORIDE 97 mmol/L (98-107); CREATININE RESULT 0.93 mg/dL (0.52-1.25); GLUCOSE 100 mg/dL (75-110); POTASSIUM 4.4 mmol/L (3.6-5.0)
[2016-07-14 05:16] LABS: HEMATOCRIT 38.4 % (36.0-47.0); HGB HCT DIFFERENCE 0.6; MEAN CORPUSCULAR HEMOGLOBIN 30.9 pg (27.0-33.4); MEAN CORPUSCULAR HGB CONC 33.8 g/dL (32.0-36.0); MEAN CORPUSCULAR VOLUME 91 fl (80-97); RED BLOOD COUNT 4.21 10^6/uL (3.72-5.28); RED CELL DISTRIBUTION WIDTH 13.7 % (11.5-14.0)
[2016-07-14 05:42] LABS: PROTHROMBIN TIME 50.8 SEC (11.4-15.4)
[2016-07-14 05:56] LABS: BAND NEUTROPHILS % (MANUAL) 2 % (3-5); BASOPHILS % (MANUAL) 0 % (0-2); EOSINOPHILS % (MANUAL) 0 % (0-6); LYMPHOCYTES % (MANUAL) 10 % (13-45); TOTAL CELLS COUNTED 100
[2016-07-14 05:59] LABS: RBC MORPHOLOGY COMMENT NORMO-CYTIC/CHROMIC
[2016-07-14] MEDS: IPRATROPIUM/ALBUTEROL 0.5-2.5 MG/3 ML AMPUL NEB SCH ×4 (08:18→19:56)
[2016-07-14] MEDS: LISINOPRIL 10 MG TABLET PO SCH ×2 (10:22→21:43)
[2016-07-14] MEDS: OXYCODONE-ACETAMINOPHEN 5-325 MG TABLET PO PRN ×2 (10:22→20:26)
[2016-07-14] MEDS: OXYCODONE HCL IR 5 MG TABLET PO PRN ×2 (10:23→20:25)
[2016-07-14] MEDS: FUROSEMIDE 40 MG TABLET PO SCH (10:23)
[2016-07-14] MEDS: CARVEDILOL 12.5 MG TABLET PO SCH ×2 (10:23→21:43)
[2016-07-14] MEDS: CEFTRIAXONE 1 GM/D5W RTU 1 GM/50 ML RTUPB IV SCH (10:24)
[2016-07-14] MEDS: DOFETILIDE 125 MCG CAPSULE PO SCH ×2 (10:26→21:43)
[2016-07-14] MEDS: PREDNISONE 20 MG TABLET PO SCH (10:27)
[2016-07-14] MEDS: LEVOFLOXACIN 500 MG TABLET PO SCH (14:19)
--- NOTE | 2016-07-14 16:02 | PDOC PROGRESS REPORT ---
Subjective Progress Note for:: 07/14/16 Subjective:: Patient is currently feeling much better patients walk in the hallway and O2 sat is running 92-94%'s. Patient's denied any wheezing denied any shortness of the breath denied any chest pain. Patient's INR is still little bit elevated Physical Exam Vital Signs: Temp Pulse Resp BP Pulse Ox 97.9 F 98 20 130/77 H 95 07/14/16 11:45 07/14/16 11:45 07/14/16 11:45 07/14/16 11:45 07/14/16 11:45 Intake & Output 07/13/16 07/14/16 07/15/16 06:59 06:59 06:59 Intake Total 1005 2166 536 Balance 1005 2166 536 Weight 75.4 kg 75 kg 75 kg General appearance: PRESENT: no acute distress, well-developed, well-nourished Head exam: PRESENT: atraumatic, normocephalic Eye exam: PRESENT: conjunctiva pink, EOMI, PERRLA. ABSENT: scleral icterus Ear exam: PRESENT: normal external ear exam Mouth exam: PRESENT: moist, tongue midline Neck exam: PRESENT: full ROM. ABSENT: carotid bruit, JVD, lymphadenopathy, thyromegaly Respiratory exam: PRESENT: clear to auscultation dot Cardiovascular exam: PRESENT: RRR. ABSENT: diastolic murmur, rubs, systolic murmur Pulses: PRESENT: normal dorsalis pedis pul, +2 pedal pulses bilateral Vascular exam: PRESENT: normal capillary refill GI/Abdominal exam: PRESENT: normal bowel sounds, soft. ABSENT: distended, guarding, mass, organolmegaly, rebound, tenderness Rectal exam: PRESENT: deferred Neurological exam: PRESENT: alert, awake, oriented to person, oriented to place , oriented to time, oriented to situation, CN II-XII grossly intact. ABSENT: motor sensory deficit Psychiatric exam: PRESENT: appropriate affect, normal mood. ABSENT: homicidal ideation, suicidal ideation Skin exam: PRESENT: dry, intact, warm. ABSENT: cyanosis, rash Results Laboratory Results: 07/14/16 04:27 07/14/16 04:27 07/14/16 07/14/16 04:27 04:27 WBC 13.0 H RBC 4.21 Hgb 13.0 Hct 38.4 MCV 91 MCH 30.9 MCHC 33.8 RDW 13.7 Plt Count 166 Seg Neutrophils % Not Reportable Lymphocytes % Not Reportable Monocytes % Not Reportable Eosinophils % Not Reportable Basophils % Not Reportable Absolute Neutrophils Not Reportable Absolute Lymphocytes Not Reportable Absolute Monocytes Not Reportable Absolute Eosinophils Not Reportable Absolute Basophils Not Reportable Sodium 136.0 L Potassium 4.4 Chloride 97 L Carbon Dioxide 33 H Anion Gap 6 BUN 43 H Creatinine 0.93 Est GFR ( Amer) > 60 Est GFR (Non-Af Amer) 59 L Glucose 100 Calcium 9.6 07/10/16 07/10/16 07/10/16 17:21 17:21 23:24 Creatine Kinase 22 L < 20 L Troponin I < 0.012 NT-Pro-B Natriuret Pep 07/10/16 07/11/16 07/11/16 23:24 05:39 05:39 Creatine Kinase < 20 L Troponin I < 0.012 < 0.012 NT-Pro-B Natriuret Pep 990 H 07/12/16 07/13/16 05:58 04:36 Creatine Kinase Troponin I NT-Pro-B Natriuret Pep 2160 H 2640 H Impressions: Chest X-Ray 07/13/16 00:00 IMPRESSION: Obstructive lung disease. No acute findings. Chronic scarring anterior right lower lung Assessment & Plan - Diagnosis (1) Acute exacerbation of chronic obstructive pulmonary disease (COPD) Is this a current diagnosis for this admission?: YesPlan: Currently on improving will cut down the p.o. steroid (2) Acute hypoxemic respiratory failure Is this a current diagnosis for this admission?: YesPlan: Discussed with the nursing staff to check the oxygen level while walking and also check the oxygen level at the nighttime (3) CHF (congestive heart failure) Qualifiers: Congestive heart failure type: diastolic Is this a current diagnosis for this admission?: YesPlan: stable (4) Atrial fibrillation Qualifiers: Atrial fibrillation type: chronic Qualified Code(s): I48.2 - Chronic atrial fibrillation Is this a current diagnosis for this admission?: YesPlan: And INR is high we hold the Coumadin today (5) Shortness of breath Is this a current diagnosis for this admission?: YesPlan: All resolved (6) History of mitral valve repair Is this a current diagnosis for this admission?: YesPlan: Follow-up with the cardiology - Time Time Spent with patient: 15-24 minutes Medications reviewed and adjusted accordingly: Yes Anticipated discharge: Home Within: Other - Inpatient Certification Medical Necessity: Need Close Monitoring Due to Risk of Patient Decompensation Post Hospital Care: D/C Ends Down Checker Documentation - Plan Summary Plan Summary: Continues to hold the Coumadin I think patients does not need any reverse the INR is pretty stable and if he tried to reverse this is go down and then had to come back so we just continues to monitor and hold the Coumadin and cut down the steroid and check the oxygen level before the discharge tomorrow if possible if remains stable
[2016-07-14] MEDS: INSULIN LISPRO 100 UNIT/ML 3 ML VIAL SUBCUT PRN ×2 (17:03→23:14)
[2016-07-15 06:09] LABS: PROTHROMBIN TIME 30.7 SEC (11.4-15.4)
[2016-07-15 06:21] LABS: ANION GAP 10 (5-19); BLOOD UREA NITROGEN 46 mg/dL (7-20); CALCIUM 9.5 mg/dL (8.4-10.2); CARBON DIOXIDE 32 mmol/L (22-30); CHLORIDE 97 mmol/L (98-107); CREATININE RESULT 0.94 mg/dL (0.52-1.25); GLUCOSE 89 mg/dL (75-110); POTASSIUM 4.2 mmol/L (3.6-5.0)
[2016-07-15] MEDS: IPRATROPIUM/ALBUTEROL 0.5-2.5 MG/3 ML AMPUL NEB SCH (08:16)
[2016-07-15] MEDS: LISINOPRIL 10 MG TABLET PO SCH (09:09)
[2016-07-15] MEDS: OXYCODONE HCL IR 5 MG TABLET PO PRN (09:09)
[2016-07-15] MEDS: PREDNISONE 20 MG TABLET PO SCH (09:10)
[2016-07-15] MEDS: OXYCODONE-ACETAMINOPHEN 5-325 MG TABLET PO PRN (09:10)
[2016-07-15] MEDS: FUROSEMIDE 40 MG TABLET PO SCH (09:10)
[2016-07-15] MEDS: CEFTRIAXONE 1 GM/D5W RTU 1 GM/50 ML RTUPB IV SCH (09:11)
[2016-07-15] MEDS: DOFETILIDE 125 MCG CAPSULE PO SCH (09:13)
[2016-07-15] MEDS: CARVEDILOL 12.5 MG TABLET PO SCH (09:15)
[2016-07-15 12:00] VITALS: BP 107/43
--- NOTE | 2016-07-15 12:58 | PDOC DISCHARGE SUMMARY ---
General - Admit/Disc Date/PCP Admission Date/Primary Care Provider: 07/10/16 13:39 ANNA VILLA MD Discharge Date: 07/15/16 - Discharge Diagnosis (1) Acute exacerbation of chronic obstructive pulmonary disease (COPD) Is this a current diagnosis for this admission?: YesSummary: Currently all resolving very extensive discussed with the patient about to using the Advair and the Spiriva but patient says she cannot afford any inhaler and see is not going to use it. Patient is already been prescribed the Symbicort and encourage the patient's to use it but patient's parents patient is a very noncompliance (2) Acute hypoxemic respiratory failure Is this a current diagnosis for this admission?: YesSummary: Patients probably need oxygen at nighttime but oxygen level is going to 88 we will prescribe the 1 or 2 L oxygen at night otherwise during the daytime patient does not need oxygen (3) CHF (congestive heart failure) Is this a current diagnosis for this admission?: YesSummary: Continues to current medications (4) Atrial fibrillation Is this a current diagnosis for this admission?: YesSummary: Currently stable patient INR is 2.8 and the Follow cardiology office on Wednesday to recheck INR again (5) Shortness of breath Is this a current diagnosis for this admission?: YesSummary: All resolved (6) History of mitral valve repair Is this a current diagnosis for this admission?: YesSummary: Follow with the cardiology - Additional Information Resuscitation Status: Full Code Discharge Activity: Activity As Tolerated, Balance Activity w/Rest, Weigh Daily Home Medications: Budesonide/Formoterol Fumarate [Symbicort HFA 160-4.5 mcg Inhaler 6 gm] 1 puff IH DAILY 07/10/16 Carvedilol [Coreg 25 mg Tablet] 25 mg PO Q12 07/10/16 Dofetilide [Tikosyn 125 Mcg Capsule] 125 mcg PO Q12 07/10/16 Furosemide [Lasix] 40 mg PO DAILY 07/10/16 Lisinopril [Prinivil 10 mg Tablet] 10 mg PO Q12 07/10/16 Oxycodone HCl/Acetaminophen [Percocet 10-325 mg Tablet] 1 each PO TIDP PRN 07/10 Warfarin Sodium [Coumadin 4 mg Tablet] 4 mg PO QHS 07/10/16 Cephalexin Monohydrate [Keflex 500 mg Capsule] 500 mg PO TID #15 capsule Ipratropium/Albuterol Sulfate [Duoneb 3 ml Ampul] 3 ml NEB [id number] PRN #0 vial.neb 07/15/16 Nebulizer [Nebulizer Machine] 1 each ASDIR PRN #1 kit 07/15/16 Prednisone [Deltasone 20 mg Tablet] 20 mg PO DAILY #5 tablet 07/15/16 History of Present Illness History of Present Illness: FLORECITA REILLY is a 76 year old female 76-year-old female with a significant history of the mitral valve in a history of the chronic A. fib and history of the COPD and history of the smoker came to the emergency department with severe complaining of cough congestions and unable to complete since last 3-4 days. Patient and it was a department was given IV steroid and also giving nebulizer treatments and feeling much better. Patient's denied any chest pain denied any nausea no vomiting. pt is also very noncompliance and and not follow properly for Coumadin to her cardiology Patient is not checking the Coumadin since last 2 months and patient's current INR was 1.7 to Patient also seen Dr. Watters at the [facility] Patient's daughter was on the bedside and patient's currently expressed a no code Hospital Course Hospital Course: This is a 76-year-old female basically a noncompliance not taking medication as prescribed even not checking the PT/INR as the spanish interpreter/translator office suggest came to the emergency department with the complaint of shortness of the breath cough congestion in patients diagnosed with acute bronchitis with COPD acute exacerbations and patient was put on IV steroid and nebulizerAnd IV antibiotic and the response very well. Patient was switched to the IV steroid to the p.o. steroid and the patient's to walk in the hallway without any oxygen and oxygen level is about 90 persons and patients denied any symptoms.Patient's need oxygen at night to 1 L Patients reaction discussed with the patient's about the continues use the inhaler because of the COPD but the patient says she cannot able to get it and she is not going to use it we also prescribed the patient's nebulizer machine oxygen and DuoNeb. Discussed with the patient and the daughter about all the patient's current conditions and the compliance of the medications and compliance with the checking the INR Physical Exam Vital Signs: Temp Pulse Resp BP Pulse Ox 98.6 F 86 18 107/43 L 94 07/15/16 11:58 07/15/16 11:58 07/15/16 11:58 07/15/16 11:58 07/15/16 11:58 Intake & Output 07/14/16 07/15/16 07/16/16 06:59 06:59 06:59 Intake Total 2166 1688 Balance 2166 1688 Weight 75 kg 73.8 kg General appearance: PRESENT: no acute distress, well-developed, well-nourished Head exam: PRESENT: atraumatic, normocephalic Eye exam: PRESENT: conjunctiva pink, EOMI, PERRLA. ABSENT: scleral icterus Ear exam: PRESENT: normal external ear exam Mouth exam: PRESENT: moist, tongue midline Neck exam: PRESENT: full ROM. ABSENT: carotid bruit, JVD, lymphadenopathy, thyromegaly Respiratory exam: PRESENT: clear to auscultation dot Cardiovascular exam: PRESENT: RRR. ABSENT: diastolic murmur, rubs, systolic murmur Pulses: PRESENT: normal dorsalis pedis pul, +2 pedal pulses bilateral Vascular exam: PRESENT: normal capillary refill GI/Abdominal exam: PRESENT: normal bowel sounds, soft. ABSENT: distended, guarding, mass, organolmegaly, rebound, tenderness Rectal exam: PRESENT: deferred Neurological exam: PRESENT: alert, awake, oriented to person, oriented to place , oriented to time, oriented to situation, CN II-XII grossly intact. ABSENT: motor sensory deficit Psychiatric exam: PRESENT: appropriate affect, normal mood. ABSENT: homicidal ideation, suicidal ideation Skin exam: PRESENT: dry, intact, warm. ABSENT: cyanosis, rash Results Laboratory Results: 07/14/16 04:27 07/15/16 05:14 07/15/16 05:14 Sodium 139.0 Potassium 4.2 Chloride 97 L Carbon Dioxide 32 H Anion Gap 10 BUN 46 H Creatinine 0.94 Est GFR ( Amer) > 60 Est GFR (Non-Af Amer) 58 L Glucose 89 Calcium 9.5 07/10/16 07/10/16 07/10/16 17:21 17:21 23:24 Creatine Kinase 22 L < 20 L Troponin I < 0.012 NT-Pro-B Natriuret Pep 05/05/17 05/06/17 05/06/17 23:24 05:39 05:39 Creatine Kinase < 20 L Troponin I < 0.012 < 0.012 NT-Pro-B Natriuret Pep 990 H 07/12/16 07/13/16 05:58 04:36 Creatine Kinase Troponin I NT-Pro-B Natriuret Pep 2160 H 2640 H Impressions: Chest X-Ray 07/13/16 00:00 IMPRESSION: Obstructive lung disease. No acute findings. Chronic scarring anterior right lower lung Plan Time Spent: Greater than 30 Minutes - Discharge the patient's with the stable conditions discuss all the test results with the patient and the daughter and also discussed about the compliance of the medications and check the INR as directed
== END 2016-07-15 12:16 | disposition home or self-care (01) | DRG 190 ==
LOC: ER 10:38 → EH 13:39 → UNDOADMIN 13:56 → EH 13:56 → 3S 16:10
PROVIDERS: ADMIT Family Medicine; ATTEND Family Medicine
DX: J44.1 Chronic obstructive pulmonary disease with (acute) exacerbation (principal); J96.01 Acute respiratory failure with hypoxia; I50.32 Chronic diastolic (congestive) heart failure; R78.81 Bacteremia; I11.0 Hypertensive heart disease with heart failure; I48.2 Chronic atrial fibrillation; E78.5 Hyperlipidemia, unspecified; K21.9 Gastro-esophageal reflux disease without esophagitis; F17.210 Nicotine dependence, cigarettes, uncomplicated; Z91.19 Patient's noncompliance with other medical treatment and regimen; Z79.01 Long term (current) use of anticoagulants; Z79.51 Long term (current) use of inhaled steroids; Z79.899 Other long term (current) drug therapy
CPT/HCPCS: 36415; 71010; 71020; 80048; 80053; 82550; 82553; 82962; 83735; 83880; 84484; 85025; 85610; 85730; 87040; 87070; 87077; 87186; 87205; 87804; 93005; 93010; 94640; 96365; 96367; 96375; 99285; J0696; J1815; J1956; J2920; J2930; J3475; J3490; J7512; J7620

== ENCOUNTER 2018-11-17 11:35 | Inpatient (IN) | payer BC, MEDICARE ==
[2018-11-17] MEDS ORDERED: IPRATROPIUM/ALBUTEROL 0.5-2.5 MG/3 ML AMPUL NEB ONE (11:51)
[2018-11-17] MEDS ORDERED: METHYLPREDNISOLONE INJ 125 MG/2 ML SDV IV ONE (11:51)
[2018-11-17 12:14] LABS: ABSOLUTE EOSINOPHILS # (AUTO) 0.1 10^3/uL (0.0-0.6); ABSOLUTE LYMPHOCYTES (AUTO) 1.4 10^3/uL (0.5-4.7); ABSOLUTE MONOCYTES (AUTO) 0.5 10^3/uL (0.1-1.4); ABSOLUTE NEUT (AUTO) 7.2 10^3/uL (1.7-8.2); BASOPHILS % (AUTO) 0.2 % (0-2); EOSINOPHILS % (AUTO) 1.4 % (0-6); HEMATOCRIT 37.4 % (36.0-47.0); HEMOGLOBIN 12.7 g/dL (12.0-15.5); LYMPHOCYTES % (AUTO) 14.6 % (13-45); MEAN CORPUSCULAR HEMOGLOBIN 30.8 pg (27.0-33.4); MEAN CORPUSCULAR HGB CONC 33.9 g/dL (32.0-36.0); MEAN CORPUSCULAR VOLUME 91 fl (80-97); MONOCYTES % (AUTO) 5.4 % (3-13); PLATELET COUNT 219 10^3/uL (150-450); RED BLOOD COUNT 4.12 10^6/uL (3.72-5.28); RED CELL DISTRIBUTION WIDTH 13.5 % (11.5-14.0); SEGMENTED NEUTROPHILS % (AUTO) 78.4 % (42-78); TOTAL CELLS COUNTED % (AUTO) 100 %; WHITE BLOOD COUNT 9.2 10^3/uL (4.0-10.5)
--- NOTE | 2018-11-17 12:24 | RADIOLOGY REPORT (SQ) ---
EXAM DESCRIPTION: CHEST SINGLE VIEW COMPLETED DATE/TIME: 11/17/2018 12:13 pm REASON FOR STUDY: t2 db COMPARISON: 07/13/2016. NUMBER OF VIEWS: One view. TECHNIQUE: Single frontal radiographic view of the chest acquired. LIMITATIONS: None. FINDINGS: LUNGS AND PLEURA: Chronic interstitial changes. No focal infiltrates, masses or pneumotho rax. No pleural effusion. Attenuated blood vessels and flattened thuan-diaphragms. MEDIASTINUM AND HILAR STRUCTURES: No masses. Contour normal. HEART AND VASCULAR STRUCTURES: Heart upper limits of normal in size. Normal vasculature. BONES: No acute findings. HARDWARE: Spinal stimulator hardware. OTHER: No other significant finding. IMPRESSION: COPD. CHRONIC SCARRING. NO ACUTE RADIOGRAPHIC FINDING IN THE CHEST. TECHNICAL DOCUMENTATION: JOB ID: [id number] [employer]- All Rights Reserved Reading location - IP/workstation name: [email or web address]
[2018-11-17 12:35] LABS: ALBUMIN 3.7 g/dL (3.5-5.0); ALKALINE PHOSPHATASE 61 U/L (38-126); ANION GAP 8 (5-19); ASPARTATE AMINO TRANSFERASE 17 U/L (14-36); BILIRUBIN,DIRECT 0.1 mg/dL (0.0-0.4); BILIRUBIN,TOTAL 0.5 mg/dL (0.2-1.3); BLOOD UREA NITROGEN 22 mg/dL (7-20); CALCIUM 8.9 mg/dL (8.4-10.2); CARBON DIOXIDE 28 mmol/L (22-30); CHLORIDE 103 mmol/L (98-107); CREATINE KINASE 25 U/L (30-135); GLUCOSE 111 mg/dL (75-110); POTASSIUM 4.4 mmol/L (3.6-5.0); TOTAL PROTEIN 6.2 g/dL (6.3-8.2)
[2018-11-17 12:39] LABS: CREATINE KINASE MB 0.41 ng/mL (<4.55)
[2018-11-17 12:40] LABS: TROPONIN I < 0.012 ng/mL
--- NOTE | 2018-11-17 13:06 | ER Document Report ---
Entered by ОЛЕГ LAROSE SCRIBE 11/17/18 1151 Acting as scribe for:GALO EAGLE MD ED Respiratory Problem - General Stated Complaint: WEAKNESS Time Seen by Provider: 11/17/18 11:42 Mode of Arrival: Ambulatory Information source: Patient Notes: 78-year-old female that presents to the emergency department today with complaints of shortness of breath. Patient was seen by her PCP yesterday and had a chest x-ray performed. Family called EMS today because of the patient became increasingly short of breath after walking to the kitchen. Patient is not on home oxygen. Patient smokes 1 pack/day. Patient states her cough is productive with a yellowish colored sputum. TRAVEL OUTSIDE OF THE [place] IN LAST 30 DAYS: No - Related Data Allergies/Adverse Reactions: oxymorphone HCl [From Opana] Allergy (Severe, Verified 11/25/10 13:44) tramadol [Tramadol] Adverse Reaction (Intermediate, Verified 07/17/11 11:54) Hallucinations Past Medical History - General Information source: Patient - Social History Smoking Status: Current Every Day Smoker Cigarette use (# per day): Yes Frequency of alcohol use: None Drug Abuse: None Lives with: Family Family History: Reviewed & Not Pertinent - Past Medical History Cardiac Medical History: Reports: Hx Atrial Fibrillation, Hx Congestive Heart Failure, Hx Hypercholesterolemia, Hx Hypertension Pulmonary Medical History: Reports: Hx COPD GI Medical History: Reports: Hx Gastroesophageal Reflux Disease Past Surgical History: Reports: Hx Cardiac Surgery - Mitral Valve Replacement, Hx Tonsillectomy, Hx Valve Replacement - Immunizations Hx Diphtheria, Pertussis, Tetanus Vaccination: No Hx Pneumococcal Vaccination: 11/07/11 Review of Systems - Review of Systems Constitutional: No symptoms reported EENT: No symptoms reported Cardiovascular: No symptoms reported Respiratory: See HPI, Cough, Short of breath, Wheezing Gastrointestinal: No symptoms reported Genitourinary: No symptoms reported Female Genitourinary: No symptoms reported Musculoskeletal: No symptoms reported Skin: No symptoms reported Hematologic/Lymphatic: No symptoms reported Neurological/Psychological: No symptoms reported -: Yes All other systems reviewed and negative Physical Exam - Vital signs Vitals: Resp Pulse Ox 23 H 97 11/17/18 11:46 11/17/18 11:46 - Notes Notes: Physical Exam: General: Alert, productive cough. HEENT: Normocephalic. Atraumatic. PERRL. Extraocular movements intact. Oropharynx clear. Neck: Supple. Non-tender. Respiratory: Wheezing and rhonchi bilaterally. Tachypneic. Cardiovascular: Regular rate and rhythm. Abdominal: Normal Inspection. Non-tender. No distension. Normal Bowel Sounds. Back: No gross abnormalities. Extremities: Moves all four extremities. Upper extremities: Normal inspection. Normal ROM. Lower extremities: Normal inspection. No edema. Normal ROM. Neurological: Normal cognition. AAOx4. Normal speech. Psychological: Normal affect. Normal Mood. Skin: Warm. Dry. Normal color. Course - Vital Signs Vital signs: Temp Pulse Resp BP Pulse Ox 98.6 F 17 160/65 H 97 11/17/18 12:13 11/17/18 14:01 11/17/18 14:01 11/17/18 14:01 - Laboratory Result Diagrams: 11/17/18 11:50 11/17/18 11:50 Laboratory results interpreted by me: 11/17/18 11/17/18 11/17/18 11:50 11:50 11:50 Seg Neutrophils % 78.4 H PT 26.3 H BUN 22 H Glucose 111 H Creatine Kinase 25 L Total Protein 6.2 L - Diagnostic Test Radiology reviewed: Image reviewed, Reports reviewed - Chest x-ray shows COPD with chronic scarring. Nothing acute. - EKG Interpretation by Ms EKG shows normal: Sinus rhythm, [place], Intervals, QRS Complexes, ST-T Waves Rate: Normal - 67 Rhythm: NSR - Consults Cheryl Norton NP Time consulted: 15:36 Consulted provider: will come to ER Critical Care Note - Critical Care Note Total time excluding time spent on procedures (mins): 35 Discharge - Discharge Clinical Impression: Acute exacerbation of chronic obstructive pulmonary disease (COPD) HTN (hypertension) Qualifiers: Hypertension type: essential hypertension Qualified Code(s): I10 - Essential (primary) hypertension Condition: Stable Disposition: ADMITTED INPATIENT Admitting Provider: Laura (Hospitalist) Unit Admitted: Medical Floor Scribe Attestation: 11/17/18 14:45 I personally performed the services described in the documentation, reviewed and edited the documentation which was dictated to the scribe in my presence, and it accurately records my words and actions. I personally performed the services described in the documentation, reviewed and edited the documentation which was dictated to the scribe in my presence, and it accurately records my words and actions.
[2018-11-17] MEDS ORDERED: ALBUTEROL SULFATE 0.083% NEB 2.5 MG/3 ML AMPUL NEB ONE ×2 (13:08→15:14)
[2018-11-17] MEDS: MAGNESIUM SULFATE/D5W 1 GM/100 ML RTUPB IV SCH ×2 (14:19→16:44)
[2018-11-17 15:31] LABS: INTERNATIONAL RATION (INR) 2.37; PROTHROMBIN TIME 26.3 SEC (11.4-15.4)
[2018-11-17] MEDS ORDERED: ACETAMINOPHEN 325 MG TABLET PO PRN (16:15)
[2018-11-17] MEDS ORDERED: IPRATROPIUM/ALBUTEROL 0.5-2.5 MG/3 ML AMPUL NEB PRN (16:15)
[2018-11-17] MEDS ORDERED: NORMAL SALINE 1000 ML 1,000 ML IV PRN (16:15)
[2018-11-17] MEDS ORDERED: MAG HYDROX/AL HYDROX/SIMETH SUSP 30 ML UDCUP PO PRN (16:28)
[2018-11-17] MEDS ORDERED: PROMETHAZINE HCL INJ 25 MG/1 ML VIAL IV PRN (16:28)
[2018-11-17] MEDS ORDERED: ONDANSETRON HCL INJ/PF 4 MG/2 ML SDV IV PRN (16:28)
[2018-11-17] MEDS ORDERED: NICOTINE 21 MG/24 HR PATCH.TD24 TD PRN (17:35)
--- NOTE | 2018-11-17 17:36 | PDOC H&P ---
History of Present Illness Admission Date/PCP: 11/17/18 15:58 Patient complains of: shortness of breath History of Present Illness: FLORECITA REILLY I is a 78 year old female with a past medical history of COPD, CHF, hypertension, CAD, A. fib, chronic anticoagulation on Coumadin, severe tobacco dependence, and opiate dependent chronic pain who presented to [facility] emergency department today with a complaint of 1 week of progressively worsening shortness of breath and productive cough. She is not home O2 dependent. Evaluation in the emergency department was essentially unremarkable with normal vital signs, benign CBC, therapeutic INR (2.37), unremarkable chemistry with normal troponin and lactic acid, EKG demonstrating normal sinus rhythm, and chest x-ray demonstrating COPD but no acute cardiopulmonary findings. Patient was provided IV magnesium, Solu-Medrol, nebulizer treatment, and supplemental oxygen. She continues to have dyspnea at rest with rhonchi and wheezing throughout. She is referred to the hospitalist service for admission and management of COPD exacerbation. Past Medical History Cardiac Medical History: Reports: Atrial Fibrillation, Congestive Heart Failure, Coronary Artery Disease, Hyperlipidema, Hypertension, Peripheral Vascular Disease Denies: Myocardial Infarction Pulmonary Medical History: Reports: Chronic Obstructive Pulmonary Disease (COPD) Neurological Medical History: Denies: Ischemic CVA, Seizures Endocrine Medical History: Denies: Diabetes Mellitus Type 2, Hypothyroidism Renal/ Medical History: Denies: Chronic Kidney Disease, End Stage Renal Disease Malignancy Medical History: Denies: Breast Cancer, Cervical Cancer, Lung Cancer, Ovarian Cancer GI Medical History: Reports: Gastroesophageal Reflux Disease Denies: Crohn's Disease, Hiatal Hernia Musculoskeltal Medical History: Denies: Arthritis, Fibromyalgia Psychiatric Medical History: Reports: Tobacco Dependency Denies: Dementia Hematology: Denies: Anemia Infectious Medical History: Reports: None Past Surgical History Past Surgical History: Reports: Tonsillectomy, Valve Replacement Denies: Cardiac Catheterization, Coronary Artery Bypass Graft, Coronary Stent Social History Information Source: Patient Lives with: Family Smoking Status: Current Every Day Smoker Cigarettes Packs Per Day: 1.5 Frequency of Alcohol Use: None Hx Recreational Drug Use: No Drugs: None Hx Prescription Drug Abuse: No - Advance Directive Resuscitation Status: Do Not Resuscitate Surrogate healthcare decision maker:: Patient's daughter, Nataly Weems, Family History Family History: Reviewed & Not Pertinent Parental Family History Reviewed: Yes Children Family History Reviewed: Yes Sibling(s) Family History Reviewed.: Yes Medication/Allergy Home Medications: Budesonide/Formoterol Fumarate [Symbicort HFA 160-4.5 mcg Inhaler 6 gm] 1 puff IH DAILY 07/10/16 Carvedilol [Coreg 25 mg Tablet] 25 mg PO Q12 07/10/16 Dofetilide [Tikosyn 125 Mcg Capsule] 125 mcg PO Q12 07/10/16 Furosemide [Lasix] 40 mg PO DAILY 07/10/16 Lisinopril [Prinivil 10 mg Tablet] 10 mg PO Q12 07/10/16 Oxycodone HCl/Acetaminophen [Percocet 10-325 mg Tablet] 1 each PO TIDP PRN 07/10/16 Warfarin Sodium [Coumadin 4 mg Tablet] 4 mg PO QHS 07/10/16 Cephalexin Monohydrate [Keflex 500 mg Capsule] 500 mg PO TID #15 capsule 07/15/16 Ipratropium/Albuterol Sulfate [Duoneb 3 ml Ampul] 3 ml NEB [id number] PRN #0 vial.neb 07/15/16 Nebulizer [Nebulizer Machine] 1 each MC ASDIR PRN #1 kit 07/15/16 Prednisone [Deltasone 20 mg Tablet] 20 mg PO DAILY #5 tablet 07/15/16 Allergies/Adverse Reactions: oxymorphone HCl [From Opana] Allergy (Severe, Verified 11/25/10 13:44) tramadol [Tramadol] Adverse Reaction (Intermediate, Verified 07/17/11 11:54) Hallucinations Review of Systems Constitutional: ABSENT: chills, fever(s), headache(s), weight gain, weight loss Eyes: ABSENT: visual disturbances Ears: ABSENT: hearing changes Cardiovascular: ABSENT: chest pain, dyspnea on exertion, edema, orthropnea, palpitations Respiratory: PRESENT: cough, dyspnea, sputum. ABSENT: hemoptysis Gastrointestinal: ABSENT: abdominal pain, constipation, diarrhea, hematemesis, hematochezia, nausea, vomiting Genitourinary: ABSENT: dysuria, hematuria Musculoskeletal: ABSENT: joint swelling Integumentary: ABSENT: rash, wounds Neurological: ABSENT: abnormal gait, abnormal speech, confusion, dizziness, focal weakness, syncope Psychiatric: ABSENT: anxiety, depression, homidical ideation, suicidal ideation Endocrine: ABSENT: cold intolerance, heat intolerance, polydipsia, polyuria Hematologic/Lymphatic: ABSENT: easy bleeding, easy bruising Physical Exam Vital Signs: Temp Pulse Resp BP Pulse Ox 98.6 F 20 105/68 95 11/17/18 12:13 11/17/18 17:02 11/17/18 16:03 11/17/18 17:14 Intake & Output 11/16/18 11/17/18 11/18/18 06:59 06:59 06:59 Intake Total 100 Balance 100 Weight 75.75 kg General appearance: PRESENT: no acute distress, disheveled, well-developed, well-nourished - overweight Head exam: PRESENT: atraumatic, normocephalic Eye exam: PRESENT: conjunctiva pink, EOMI, PERRLA. ABSENT: scleral icterus Ear exam: PRESENT: normal external ear exam Mouth exam: PRESENT: moist, tongue midline Neck exam: ABSENT: carotid bruit, JVD, lymphadenopathy, thyromegaly Respiratory exam: PRESENT: prolonged expiratory phas, rhonchi, symmetrical, unlabored, wheezes, other - supplemental oxygen via 2lpm. ABSENT: rales Cardiovascular exam: PRESENT: RRR, +S1, +S2. ABSENT: diastolic murmur, rubs, systolic murmur Pulses: PRESENT: normal dorsalis pedis pul Vascular exam: PRESENT: normal capillary refill GI/Abdominal exam: PRESENT: normal bowel sounds, soft. ABSENT: distended, guarding, mass, organolmegaly, rebound, tenderness Rectal exam: PRESENT: deferred Extremities exam: PRESENT: full ROM. ABSENT: calf tenderness, clubbing, pedal edema Neurological exam: PRESENT: alert, awake, oriented to person, oriented to place, oriented to time, oriented to situation, CN II-XII grossly intact. ABSENT: motor sensory deficit Psychiatric exam: PRESENT: appropriate affect, normal mood. ABSENT: homicidal ideation, suicidal ideation Skin exam: PRESENT: dry, intact, warm. ABSENT: cyanosis, rash Results Laboratory Results: 11/17/18 11:50 11/17/18 11:50 11/17/18 11/17/18 11/17/18 11:50 11:50 11:50 WBC 9.2 RBC 4.12 Hgb 12.7 Hct 37.4 MCV 91 MCH 30.8 MCHC 33.9 RDW 13.5 Plt Count 219 Seg Neutrophils % 78.4 H Sodium 138.7 Potassium 4.4 Chloride 103 Carbon Dioxide 28 Anion Gap 8 BUN 22 H Creatinine 0.85 Est GFR ( Amer) > 60 Glucose 111 H Lactic Acid 1.5 Calcium 8.9 Magnesium 1.9 Total Bilirubin 0.5 AST 17 Alkaline Phosphatase 61 Total Protein 6.2 L Albumin 3.7 11/17/18 11/17/18 11:50 11:50 Creatine Kinase 25 L CK-MB (CK-2) 0.41 Troponin I < 0.012 Impressions: Chest X-Ray 11/17/18 11:39 IMPRESSION: COPD. CHRONIC SCARRING. NO ACUTE RADIOGRAPHIC FINDING IN THE CHEST. Assessment and Plan - Diagnosis (1) Acute respiratory failure with hypoxia Is this a current diagnosis for this admission?: Yes Plan: Secondary to COPD exacerbation. Patient is not home O2 dependent currently was requiring supplemental oxygen via nasal cannula to maintain oxygen saturations. She will be admitted to the medical floor and continuous cardiac telemetry. Continue supplemental oxygen as needed to maintain saturations 88 to 92%. Remaining management of COPD exacerbation is described below. (2) COPD exacerbation Is this a current diagnosis for this admission?: Yes Plan: Supplemental oxygen as needed to maintain saturations 88 to 92%. Scheduled as needed nebulizer treatments. Continue IV Solu-Medrol. Mucinex twice daily. Incentive spirometer and flutter valve to bedside. (3) HTN (hypertension) Qualifiers: Hypertension type: essential hypertension Qualified Code(s): I10 - Essential (primary) hypertension Is this a current diagnosis for this admission?: Yes Plan: The patient endorses a history of hypertension. We will resume her home dose medication regiment once reconciled. Cardiac diet. (4) CHF (congestive heart failure) Is this a current diagnosis for this admission?: Yes Plan: Patient endorses a history of CHF. She is currently stable and without exacerbation. We will resume her home dose antihypertensive medications once reconciled. We will continue her home dose Coumadin; dosing per pharmacy. Cardiac diet, daily weights. (5) HLD (hyperlipidemia) Qualifiers: Hyperlipidemia type: pure hypercholesterolemia Qualified Code(s): E78.00 - Pure hypercholesterolemia, unspecified Is this a current diagnosis for this admission?: Yes Plan: Cardiac diet. Dietary discretion is advised. (6) Chronic anticoagulation Is this a current diagnosis for this admission?: Yes Plan: INR currently therapeutic. We will ask pharmacy to manage Coumadin therapy. (7) PAF (paroxysmal atrial fibrillation) Is this a current diagnosis for this admission?: Yes Plan: Patient currently in sinus rhythm. We will continue her home dose medication regiment once reconciled. Chronically anticoagulated with Coumadin; pharmacy to dose. (8) Tobacco abuse Is this a current diagnosis for this admission?: Yes Plan: Smoking cessation encouraged. Patient declines nicotine replacement therapy. - Time Time Spent with patient: 35 or more minutes Medications reviewed and adjusted accordingly: Yes Anticipated discharge: Home Within: within 72 hours
[2018-11-17] MEDS: METHYLPREDNISOLONE INJ 40 MG/1 ML SDV IV SCH (21:20)
[2018-11-17] MEDS: FAMOTIDINE 20 MG TABLET PO SCH (21:20)
[2018-11-17] MEDS: GUAIFENESIN 600 MG TABLET.SA PO SCH (21:20)
[2018-11-17 21:51] LABS: APPEARANCE,URINE CLEAR; BILIRUBIN,URINE NEGATIVE (NEGATIVE); COLOR,URINE YELLOW; GLUCOSE, URINE >=500 mg/dL (NEGATIVE); KETONES,URINE NEGATIVE (NEGATIVE); LEUKOCYTE ESTERASE,URINE NEGATIVE (NEGATIVE); NITRITE,URINE NEGATIVE (NEGATIVE); PROTEIN,URINE NEGATIVE (NEGATIVE); URINE SPECIFIC GRAVITY 1.025; UROBILINOGEN,URINE NEGATIVE mg/dL (<2.0)
[2018-11-17 22:04] LABS: ADD MANUAL MICROSCOPIC YES
[2018-11-17 22:07] LABS: BACTERIA,URINE TRACE /HPF; RBC,URINE 0-1 /HPF
[2018-11-17] MEDS: FLUTICASONE NASAL SPRAY 50 MCG/SPRY 120 SPRAY/16 GM NASL SCH (22:34)
[2018-11-17] MEDS: OXYCODONE HCL IR 5 MG TABLET PO PRN (22:46)
[2018-11-17] MEDS: DOFETILIDE 125 MCG CAPSULE PO SCH (22:49)
[2018-11-17] MEDS: CARVEDILOL 12.5 MG TABLET PO SCH (22:49)
[2018-11-17] MEDS: WARFARIN SODIUM 2 MG TABLET PO SCH (22:49)
[2018-11-17] MEDS: LISINOPRIL 10 MG TABLET PO SCH (22:49)
[2018-11-18 05:14] LABS: HEMATOCRIT 36.1 % (36.0-47.0); HEMOGLOBIN 12.2 g/dL (12.0-15.5); MEAN CORPUSCULAR HEMOGLOBIN 30.5 pg (27.0-33.4); MEAN CORPUSCULAR HGB CONC 33.7 g/dL (32.0-36.0); MEAN CORPUSCULAR VOLUME 91 fl (80-97); PLATELET COUNT 196 10^3/uL (150-450); RED BLOOD COUNT 3.99 10^6/uL (3.72-5.28); RED CELL DISTRIBUTION WIDTH 13.5 % (11.5-14.0); WHITE BLOOD COUNT 6.5 10^3/uL (4.0-10.5)
[2018-11-18 05:30] LABS: ANION GAP 8 (5-19); BLOOD UREA NITROGEN 25 mg/dL (7-20); CARBON DIOXIDE 27 mmol/L (22-30); CHLORIDE 103 mmol/L (98-107); GLUCOSE 155 mg/dL (75-110)
[2018-11-18] MEDS: METHYLPREDNISOLONE INJ 40 MG/1 ML SDV IV SCH ×3 (05:32→21:51)
--- NOTE | 2018-11-18 08:52 | EKG REPORT ---
SEVERITY:- NORMAL ECG - SINUS RHYTHM : Confirmed by: Kassy Breaux MD 18-Nov-2018 08:52:21
[2018-11-18] MEDS: LISINOPRIL 10 MG TABLET PO SCH ×2 (10:36→21:57)
[2018-11-18] MEDS: OXYCODONE HCL IR 5 MG TABLET PO PRN ×3 (10:37→21:59)
[2018-11-18] MEDS: FAMOTIDINE 20 MG TABLET PO SCH ×2 (10:37→21:58)
[2018-11-18] MEDS: GUAIFENESIN 600 MG TABLET.SA PO SCH ×2 (10:37→21:55)
[2018-11-18] MEDS: CARVEDILOL 12.5 MG TABLET PO SCH ×2 (10:37→21:56)
[2018-11-18 11:35] LABS: INTERNATIONAL RATION (INR) 2.58; PROTHROMBIN TIME 28.2 SEC (11.4-15.4)
[2018-11-18] MEDS: DOFETILIDE 125 MCG CAPSULE PO SCH ×2 (11:52→21:59)
[2018-11-18] MEDS: ALBUTEROL SULFATE 0.083% NEB 2.5 MG/3 ML AMPUL NEB PRN (15:56)
--- NOTE | 2018-11-18 16:47 | Progress Note Acknowledgement ---
Progress Note Acknowledgement Progess Note Acknowledgement: I, the undersigned member of the medical staff with appropriate privileges and with supervisory authority over Cheryl Norton, a [facility] allied health professional, acknowledge that I have reviewed the progress notes entered on this patient, and in my professional judgment believe that the assessment made and/or any care evidenced was appropriate
--- NOTE | 2018-11-18 16:54 | PDOC PROGRESS REPORT ---
Subjective Progress Note for:: 11/18/18 Subjective:: FLORECITA REILLY I is a 78 year old female with a past medical history of COPD, CHF, hypertension, CAD, A. fib, chronic anticoagulation on Coumadin, severe tobacco dependence, and opiate dependent chronic pain who was admitted 11/17/2018 for COPD exacerbation. The patient was seen on morning rounds. She was found sitting up to the edge of the bed, on supplemental oxygen via nasal cannula 2 L/min. She is not home O2 dependent. She is noted to have tachypnea, accessory muscle use, retractions, frequent cough, dyspnea at rest with associated anxiety/air hunger. Surprisingly, she does report that she is feeling slightly better than yesterday. She denies fever, chest pain, palpitations, abdominal pain, nausea vomiting and diarrhea. 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 She has no other questions or concerns at this time. No concerns per nursing. Reason For Visit: COPD EXACERBATION Physical Exam Vital Signs: Temp Pulse Resp BP Pulse Ox 98.2 F 79 18 171/74 H 96 11/18/18 07:29 11/18/18 15:56 11/18/18 15:56 11/18/18 07:29 11/18/18 15:56 Intake & Output 11/17/18 11/18/18 11/19/18 06:59 06:59 06:59 Intake Total 100 502 Output Total 1 Balance 99 502 Weight 168.5 kg General appearance: PRESENT: cooperative, disheveled, mild distress, well- developed, well-nourished Head exam: PRESENT: atraumatic, normocephalic Eye exam: PRESENT: conjunctiva pink, EOMI, PERRLA. ABSENT: scleral icterus Ear exam: PRESENT: normal external ear exam Mouth exam: PRESENT: moist, tongue midline Neck exam: ABSENT: carotid bruit, JVD, lymphadenopathy, thyromegaly Respiratory exam: PRESENT: accessory muscle use, prolonged expiratory phas, retraction, rhonchi, symmetrical, tachypnea, wheezes. ABSENT: rales Cardiovascular exam: PRESENT: RRR, +S1, +S2. ABSENT: diastolic murmur, rubs, systolic murmur Pulses: PRESENT: normal dorsalis pedis pul Vascular exam: PRESENT: normal capillary refill GI/Abdominal exam: PRESENT: normal bowel sounds, soft. ABSENT: distended, guarding, mass, organolmegaly, rebound, tenderness Rectal exam: PRESENT: deferred Extremities exam: PRESENT: full ROM. ABSENT: calf tenderness, clubbing, pedal edema Musculoskeletal exam: PRESENT: ambulatory Neurological exam: PRESENT: alert, awake, oriented to person, oriented to place, oriented to time, oriented to situation, CN II-XII grossly intact. ABSENT: motor sensory deficit Psychiatric exam: PRESENT: appropriate affect, normal mood. ABSENT: homicidal ideation, suicidal ideation Skin exam: PRESENT: dry, intact, warm. ABSENT: cyanosis, rash Results Laboratory Results: 11/18/18 04:16 11/18/18 04:16 11/17/18 11/18/18 11/18/18 21:15 04:16 04:16 WBC 6.5 RBC 3.99 Hgb 12.2 Hct 36.1 MCV 91 MCH 30.5 MCHC 33.7 RDW 13.5 Plt Count 196 Sodium 137.6 Potassium 5.0 Chloride 103 Carbon Dioxide 27 Anion Gap 8 BUN 25 H Creatinine 1.01 Est GFR ( Amer) > 60 Glucose 155 H Calcium 9.0 Urine Color YELLOW Urine Appearance CLEAR Urine pH 5.0 Ur Specific [place] 1.025 Urine Protein NEGATIVE Urine Glucose (UA) >=500 H Urine Ketones NEGATIVE Urine Blood SMALL H Urine Nitrite NEGATIVE Ur Leukocyte Esterase NEGATIVE Ur Squamous Epith Cells MODERATE 11/17/18 11/17/18 11:50 11:50 Creatine Kinase 25 L CK-MB (CK-2) 0.41 Troponin I < 0.012 Impressions: Chest X-Ray 11/17/18 11:39 IMPRESSION: COPD. CHRONIC SCARRING. NO ACUTE RADIOGRAPHIC FINDING IN THE CHEST. Assessment and Plan - Diagnosis (1) Acute respiratory failure with hypoxia Is this a current diagnosis for this admission?: Yes Plan: Secondary to COPD exacerbation. Patient is not home O2 dependent currently was requiring supplemental oxygen via nasal cannula to maintain oxygen saturations. She has been admitted to the medical floor and continuous cardiac telemetry. Continue supplemental oxygen as needed to maintain saturations 89 to 92%. Remaining management of COPD exacerbation is described below. (2) COPD exacerbation Is this a current diagnosis for this admission?: Yes Plan: Supplemental oxygen as needed to maintain saturations 89 to 92%. Scheduled and as needed nebulizer treatments. Continue IV Solu-Medrol. Mucinex twice daily. Incentive spirometer and flutter valve to bedside. The patient's only home medication is a rescue inhaler. She will require Spiriva and Symbicort or Breo at discharge. (3) HTN (hypertension) Qualifiers: Hypertension type: essential hypertension Qualified Code(s): I10 - Essential (primary) hypertension Is this a current diagnosis for this admission?: Yes Plan: The patient endorses a history of hypertension. Have resumed the patient's home dose lisinopril and carvedilol. Holding lisinoipril as patietn appeared somewhate dehydrated on admission. Likely to resume tomorrow. Cardiac diet. (4) CHF (congestive heart failure) Is this a current diagnosis for this admission?: Yes Plan: Patient endorses a history of CHF. She is currently stable and without exacerbation. Continue lisinopril and carvedilol. Holding lasix. We will continue her home dose Coumadin; dosing per pharmacy. Cardiac diet, daily weights. (5) HLD (hyperlipidemia) Qualifiers: Hyperlipidemia type: pure hypercholesterolemia Qualified Code(s): E78.00 - Pure hypercholesterolemia, unspecified Is this a current diagnosis for this admission?: Yes Plan: Cardiac diet. Dietary discretion is advised. (6) Chronic anticoagulation Is this a current diagnosis for this admission?: Yes Plan: INR currently therapeutic. We will ask pharmacy to manage Coumadin therapy. (7) PAF (paroxysmal atrial fibrillation) Is this a current diagnosis for this admission?: Yes Plan: Patient currently in sinus rhythm. Continue carvedilol and Tikosyn. Chronically anticoagulated with Coumadin; pharmacy to dose. (8) Tobacco abuse Is this a current diagnosis for this admission?: Yes Plan: Smoking cessation encouraged. Patient declines nicotine replacement therapy. - Time Time Spent with patient: 25-34 minutes Medications reviewed and adjusted accordingly: Yes Anticipated discharge: Home Within: within 48 hours
[2018-11-18] MEDS ORDERED: OXYCODONE MYRISTATE 9 MG PO SCH (18:00)
[2018-11-18] MEDS ORDERED: FLUTICASONE NASAL SPRAY 50 MCG/SPRY 120 SPRAY/16 GM NASL ONE (19:00)
[2018-11-18] MEDS: FLUTICASONE NASAL SPRAY 50 MCG/SPRY 120 SPRAY/16 GM NASL SCH ×2 (20:31→21:56)
[2018-11-18] MEDS: WARFARIN SODIUM 2 MG TABLET PO SCH (21:52)
[2018-11-18] MEDS ORDERED: WARFARIN SODIUM 2 MG TABLET ONE (22:43)
[2018-11-19] MEDS: METHYLPREDNISOLONE INJ 40 MG/1 ML SDV IV SCH ×3 (05:37→21:06)
[2018-11-19] MEDS: OXYCODONE HCL IR 5 MG TABLET PO PRN ×2 (07:50→18:10)
[2018-11-19] MEDS ORDERED: AZITHROMYCIN 250 MG TABLET PO ONE (07:59)
--- NOTE | 2018-11-19 09:42 | ADVANCED CARE ---
- Diagnosis (1) Acute respiratory failure with hypoxia Diagnosis Current: Yes (2) COPD exacerbation Diagnosis Current: Yes (3) HTN (hypertension) Diagnosis Current: Yes (4) CHF (congestive heart failure) Diagnosis Current: Yes (5) HLD (hyperlipidemia) Diagnosis Current: Yes (6) Chronic anticoagulation Diagnosis Current: Yes (7) PAF (paroxysmal atrial fibrillation) Diagnosis Current: Yes (8) Tobacco abuse Diagnosis Current: Yes Attendance: The patient and myself. Resuscitation Status: Full Code Discussion: Discussed with patient her chronic and acute medical conditions. Patient's COPD is necessitating BiPAP for support. Discussed possible need for intubation if worsens. Patient does confirm she is a FULL CODE at this time; however, states she wishes her family to know that she would not want to remain on ventilatory support for prolonged time. 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 Briefly introduced concept of MOST form; will provide paperwork for review and discuss with patient again prior to discharge. Care Planning Goals: FULL CODE Time Spent: 20 min
[2018-11-19] MEDS: GUAIFENESIN 600 MG TABLET.SA PO SCH ×2 (10:20→21:05)
[2018-11-19] MEDS: LISINOPRIL 10 MG TABLET PO SCH ×2 (10:20→21:05)
[2018-11-19] MEDS: FAMOTIDINE 20 MG TABLET PO SCH ×2 (10:20→21:11)
[2018-11-19] MEDS: CARVEDILOL 12.5 MG TABLET PO SCH ×2 (10:20→21:05)
[2018-11-19] MEDS: DOFETILIDE 125 MCG CAPSULE PO SCH ×2 (10:20→21:07)
[2018-11-19] MEDS: FLUTICASONE NASAL SPRAY 50 MCG/SPRY 120 SPRAY/16 GM NASL SCH ×2 (10:23→21:11)
[2018-11-19] MEDS: DOXYCYCLINE HYCLATE 100 MG TABLET PO SCH (12:08)
[2018-11-19 12:31] LABS: ARTERIAL BLOOD BASE EXCESS 0.2 mmol/L; ARTERIAL BLOOD FIO2 ROOM AIR; ARTERIAL BLOOD H2CO3 1.61 mmol/L (1.05-1.35); ARTERIAL BLOOD HCO3 27.1 mmol/L (20-24); ARTERIAL BLOOD O2 SATURATION 88.3 % (94-98); ARTERIAL BLOOD PCO2 53.5 mmHg (35-45); ARTERIAL BLOOD PH 7.32 (7.35-7.45); ARTERIAL BLOOD PO2 59.2 mmHg (80-100); ARTERIAL BLOOD TOTAL CO2 28.7 mmol/L (21-25)
[2018-11-19] MEDS: IPRATROPIUM/ALBUTEROL 0.5-2.5 MG/3 ML AMPUL NEB SCH ×2 (13:21→21:19)
--- NOTE | 2018-11-19 13:29 | RADIOLOGY REPORT (SQ) ---
EXAM DESCRIPTION: CHEST SINGLE VIEW COMPLETED DATE/TIME: 11/19/2018 11:08 am REASON FOR STUDY: Dyspnea, cough COMPARISON: 11/17/2018 NUMBER OF VIEWS: One view. TECHNIQUE: Single frontal radiographic view of the chest acquired. LIMITATIONS: None. FINDINGS: LUNGS AND PLEURA: COPD and chronic areas of scar. No pneumothorax. No pleural effusion. Slight central vascular congestion. MEDIASTINUM AND HILAR STRUCTURES: Stable contours. HEART AND VASCULAR STRUCTURES: Mild cardiomegaly. BONES: Osteopenic. HARDWARE: Epidural spine leads. OTHER: No other significant finding. IMPRESSION: COPD and vascular congestion. TECHNICAL DOCUMENTATION: JOB ID: [id number] [email or web address] All Rights Reserved Reading location - IP/workstation name: [email or web address]
[2018-11-19] MEDS ORDERED: METHYLPREDNISOLONE INJ 40 MG/1 ML SDV IV SCH (14:00)
[2018-11-19] MEDS ORDERED: FUROSEMIDE 40 MG TABLET ONE (15:06)
[2018-11-19] MEDS ORDERED: FUROSEMIDE 20 MG TABLET PO ONE (15:45)
[2018-11-19 16:15] LABS: ARTERIAL BLOOD BASE EXCESS 0.4 mmol/L; ARTERIAL BLOOD H2CO3 1.45 mmol/L (1.05-1.35); ARTERIAL BLOOD HCO3 26.4 mmol/L (20-24); ARTERIAL BLOOD O2 SATURATION 95.3 % (94-98); ARTERIAL BLOOD PCO2 48.1 mmHg (35-45); ARTERIAL BLOOD PH 7.36 (7.35-7.45); ARTERIAL BLOOD PO2 80.1 mmHg (80-100); ARTERIAL BLOOD TOTAL CO2 27.9 mmol/L (21-25)
[2018-11-19 16:16] LABS: ARTERIAL BLOOD FIO2 28%
--- NOTE | 2018-11-19 18:18 | PDOC PROGRESS REPORT ---
Subjective Progress Note for:: 11/19/18 Subjective:: FLORCEITA REILLY I is a 78 year old female with a past medical history of COPD, CHF, hypertension, CAD, A. fib, chronic anticoagulation on Coumadin, severe tobacco dependence, and opiate dependent chronic pain who was admitted 11/17/2018 for COPD exacerbation. The patient was seen on morning rounds. She was found sitting up to the edge of the bed, on supplemental oxygen via nasal cannula 2 L/min. She is not home O2 dependent. She continues to have tachypnea, accessory muscle use, retractions, frequent cough, dyspnea at rest with associated anxiety/air hunger. She is feeling worse today and reports increased sputum production. She denies fever, chest pain, palpitations, abdominal pain, nausea vomiting and diarrhea. She has no other questions or concerns at this time. See separate ACP note for goals of care discussion. No concerns per nursing. Reason For Visit: ACUTE COPD EXACERBATION Physical Exam Vital Signs: Temp Pulse Resp BP Pulse Ox 98.1 F 65 26 H 157/83 H 97 11/19/18 16:00 11/19/18 16:00 11/19/18 16:31 11/19/18 16:00 11/19/18 16:31 Intake & Output 11/18/18 11/19/18 11/20/18 06:59 06:59 06:59 Intake Total 100 2442 480 Output Total 1 200 Balance 99 2242 480 Weight 168.5 kg 76.5 kg General appearance: PRESENT: no acute distress, cooperative, well-developed, well-nourished Head exam: PRESENT: atraumatic, normocephalic Eye exam: PRESENT: conjunctiva pink, EOMI, PERRLA. ABSENT: scleral icterus Ear exam: PRESENT: normal external ear exam Mouth exam: PRESENT: moist, tongue midline Neck exam: ABSENT: carotid bruit, JVD, lymphadenopathy, thyromegaly Respiratory exam: PRESENT: accessory muscle use, prolonged expiratory phas, rhonchi, symmetrical, tachypnea, wheezes - throughout. ABSENT: rales Cardiovascular exam: PRESENT: RRR, +S1, +S2. ABSENT: diastolic murmur, rubs, systolic murmur Pulses: PRESENT: normal dorsalis pedis pul Vascular exam: PRESENT: normal capillary refill GI/Abdominal exam: PRESENT: normal bowel sounds, soft. ABSENT: distended, guarding, mass, organolmegaly, rebound, tenderness Rectal exam: PRESENT: deferred Extremities exam: PRESENT: full ROM. ABSENT: calf tenderness, clubbing, pedal edema Musculoskeletal exam: PRESENT: ambulatory Neurological exam: PRESENT: alert, awake, oriented to person, oriented to place, oriented to time, oriented to situation, CN II-XII grossly intact. ABSENT: mot or sensory deficit Psychiatric exam: PRESENT: appropriate affect, normal mood. ABSENT: homicidal ideation, suicidal ideation Skin exam: PRESENT: dry, intact, warm. ABSENT: cyanosis, rash Results Laboratory Results: 11/18/18 04:16 11/18/18 04:16 11/19/18 11/19/18 12:09 15:02 Carbonic Acid 1.61 H 1.45 H HCO3/H2CO3 Ratio 16:1 18:1 ABG pH 7.32 L 7.36 ABG pCO2 53.5 H 48.1 H ABG pO2 59.2 L 80.1 ABG HCO3 27.1 H 26.4 H ABG O2 Saturation 88.3 L 95.3 ABG Base Excess 0.2 0.4 FiO2 ROOM AIR 28% 11/17/18 11/17/18 11:50 11:50 Creatine Kinase 25 L CK-MB (CK-2) 0.41 Troponin I < 0.012 Impressions: Chest X-Ray 11/19/18 00:00 IMPRESSION: COPD and vascular congestion. Assessment and Plan - Diagnosis (1) Acute respiratory failure with hypoxia Is this a current diagnosis for this admission?: Yes Plan: Secondary to COPD exacerbation. Patient is not home O2 dependent currently was requiring supplemental oxygen via nasal cannula to maintain oxygen saturations. AGB reveals Acute respiratory acidosis with hypercapnia and hypoxia She has been admitted to the medical floor and continuous cardiac telemetry. Continue supplemental oxygen as needed to maintain saturations 89 to 92%. Start BiPAP Remaining management of COPD exacerbation is described below. (2) COPD exacerbation Is this a current diagnosis for this admission?: Yes Plan: Blood and sputum cultures pending. Have empirically placed the patient on p.o. doxycycline due to increased sputum production; fluoroquinolones are contraindicated in patients with AAA, Azythromycin interacts with Tikosyn. Supplemental oxygen as needed to maintain saturations 89 to 92%. Patient placed on BiPAP; follow-up ABG improved. Scheduled and as needed nebulizer treatments. Have started Pulmicort nebulizer treatment. Continue IV Solu-Medrol. Mucinex twice daily. Start Singulair nightly. Incentive spirometer and flutter valve to bedside. The patient's only home medication is a rescue inhaler. She will require Spiriva and Symbicort or Breo at discharge. (3) HTN (hypertension) Qualifiers: Hypertension type: essential hypertension Qualified Code(s): I10 - Essential (primary) hypertension Is this a current diagnosis for this admission?: Yes Plan: The patient endorses a history of hypertension. Have resumed the patient's home dose lisinopril and carvedilol. Resume half dose lasix. Cardiac diet. (4) CHF (congestive heart failure) Is this a current diagnosis for this admission?: Yes Plan: Patient endorses a history of CHF. She is currently stable and without exacerbation. Continue lisinopril and carvedilol. Half dose lasix. We will continue her home dose Coumadin; dosing per pharmacy. Cardiac diet, daily weights. (5) HLD (hyperlipidemia) Qualifiers: Hyperlipidemia type: pure hypercholesterolemia Qualified Code(s): E78.00 - Pure hypercholesterolemia, unspecified Is this a current diagnosis for this admission?: Yes Plan: Cardiac diet. Dietary discretion is advised. (6) Chronic anticoagulation Is this a current diagnosis for this admission?: Yes Plan: INR currently therapeutic. We will ask pharmacy to manage Coumadin therapy. (7) PAF (paroxysmal atrial fibrillation) Is this a current diagnosis for this admission?: Yes Plan: Patient currently in sinus rhythm. Continue carvedilol and Tikosyn. Chronically anticoagulated with Coumadin; pharmacy to dose. (8) Tobacco abuse Is this a current diagnosis for this admission?: Yes Plan: Smoking cessation encouraged. Patient declines nicotine replacement therapy. - Time Time Spent with patient: 25-34 minutes Smoking Cessation Education: 3 to 10 minutes Medications reviewed and adjusted accordingly: Yes Anticipated discharge: Home Within: within 72 hours - Inpatient Certification Based on my medical assessment, after consideration of the patient's comorbidities, presenting symptoms, or acuity I expect that the services needed warrant INPATIENT care.: Yes I certify that my determination is in accordance with my understanding of Medicare's requirements for reasonable and necessary INPATIENT services [42 CFR 412.3e].: Yes Medical Necessity: Failure to Improve With Outpatient Therapy, Need Close Monitoring Due to Risk of Patient Decompensation, Need For Continuous Telemetry Monitoring, Need for Nebulizer Therapy and Monitoring of Response, Risk of Diagnosis Which Will Require Inpatient Eval/Care/Monitoring
[2018-11-19] MEDS: WARFARIN SODIUM 2 MG TABLET PO SCH (21:06)
[2018-11-19] MEDS: MONTELUKAST SODIUM 10 MG TABLET PO SCH (21:29)
[2018-11-19] MEDS ORDERED: HYDRALAZINE HCL INJ/PF 20 MG/1 ML SDV ONE (22:40)
[2018-11-19] MEDS: ALBUTEROL SULFATE 0.083% NEB 2.5 MG/3 ML AMPUL NEB PRN (23:49)
[2018-11-19] MEDS: LORAZEPAM 1 MG TABLET PO PRN (23:53)
[2018-11-20] MEDS: IPRATROPIUM/ALBUTEROL 0.5-2.5 MG/3 ML AMPUL NEB SCH ×4 (02:15→19:34)
[2018-11-20] MEDS: METHYLPREDNISOLONE INJ 40 MG/1 ML SDV IV SCH ×3 (05:08→21:37)
[2018-11-20] MEDS: HYDRALAZINE HCL INJ/PF 20 MG/1 ML SDV IV PRN ×2 (05:08→14:44)
[2018-11-20] MEDS: LORAZEPAM 1 MG TABLET PO PRN (06:51)
[2018-11-20] MEDS ORDERED: FUROSEMIDE 40 MG TABLET PO SCH (10:00)
[2018-11-20] MEDS ORDERED: AZITHROMYCIN 250 MG TABLET PO SCH (10:00)
[2018-11-20] MEDS ORDERED: FUROSEMIDE 20 MG TABLET PO SCH ×2 (10:00)
[2018-11-20] MEDS: DOFETILIDE 125 MCG CAPSULE PO SCH ×2 (10:54→21:36)
[2018-11-20] MEDS: DOXYCYCLINE HYCLATE 100 MG TABLET PO SCH (10:54)
[2018-11-20] MEDS: CARVEDILOL 12.5 MG TABLET PO SCH ×2 (10:54→21:35)
[2018-11-20] MEDS: LISINOPRIL 10 MG TABLET PO SCH ×2 (10:55→21:35)
[2018-11-20] MEDS: GUAIFENESIN 600 MG TABLET.SA PO SCH ×2 (11:07→21:36)
[2018-11-20] MEDS: FAMOTIDINE 20 MG TABLET PO SCH ×2 (11:07→21:36)
[2018-11-20] MEDS: FLUTICASONE NASAL SPRAY 50 MCG/SPRY 120 SPRAY/16 GM NASL SCH ×2 (11:07→21:38)
[2018-11-20 12:36] LABS: ARTERIAL BLOOD BASE EXCESS 4.6 mmol/L; ARTERIAL BLOOD FIO2 25%; ARTERIAL BLOOD H2CO3 1.39 mmol/L (1.05-1.35); ARTERIAL BLOOD HCO3 29.8 mmol/L (20-24); ARTERIAL BLOOD O2 SATURATION 95.2 % (94-98); ARTERIAL BLOOD PCO2 46.3 mmHg (35-45); ARTERIAL BLOOD PH 7.43 (7.35-7.45); ARTERIAL BLOOD PO2 74.9 mmHg (80-100); ARTERIAL BLOOD TOTAL CO2 31.2 mmol/L (21-25)
--- NOTE | 2018-11-20 14:39 | PDOC PROGRESS REPORT ---
Subjective Progress Note for:: 11/20/18 Subjective:: FLORECITA REILLY I is a 78 year old female with a past medical history of COPD, CHF, hypertension, CAD, A. fib, chronic anticoagulation on Coumadin, severe tobacco dependence, and opiate dependent chronic pain who was admitted 11/17/2018 for COPD exacerbation. The patient was seen on morning rounds. She was found resting in bed comfortably on BiPAP. The patient reports that she is feeling slightly better today, however, is agitated and confused about the hospital provided medications. The patient's family members were at bedside; discussed with patient and daughter that the difference in the pills is related to the generic/pharmacy source. Did review patient's home medications and found that the patient's long-acting oxycodone had not been provided as it is not on formulary. We will asked nursing to have pharmacy verify home medication and will resume Xtampza she does report continued tonight. Dyspnea with minimal exertion, cough, and wheezing. She denies fever, chest pain, palpitations, abdominal pain, nausea vomiting and diarrhea. Have no other questions or concerns at this time. No concerns per nursing. Reason For Visit: ACUTE COPD EXACERBATION Physical Exam Vital Signs: Temp Pulse Resp BP Pulse Ox 97.4 F 78 18 157/68 H 96 11/20/18 07:47 11/20/18 14:13 11/20/18 14:13 11/20/18 07:47 11/20/18 14:13 Intake & Output 11/19/18 11/20/18 11/21/18 06:59 06:59 06:59 Intake Total 2442 1080 Output Total 200 1200 Balance 2242 -120 Weight 76.5 kg 78.3 kg General appearance: PRESENT: no acute distress, cooperative, disheveled, well- developed, well-nourished - Overweight Head exam: PRESENT: atraumatic, normocephalic Eye exam: PRESENT: conjunctiva pink, EOMI, PERRLA. ABSENT: scleral icterus Ear exam: PRESENT: normal external ear exam Mouth exam: PRESENT: moist, tongue midline Neck exam: ABSENT: carotid bruit, JVD, lymphadenopathy, thyromegaly Respiratory exam: PRESENT: prolonged expiratory phas, rhonchi, symmetrical, tachypnea, other - BiPAP. ABSENT: rales, wheezes Cardiovascular exam: PRESENT: RRR, +S1, +S2. ABSENT: diastolic murmur, rubs, systolic murmur Pulses: PRESENT: normal dorsalis pedis pul Vascular exam: PRESENT: normal capillary refill GI/Abdominal exam: PRESENT: normal bowel sounds, soft. ABSENT: distended, guarding, mass, organolmegaly, rebound, tenderness Rectal exam: PRESENT: deferred Extremities exam: PRESENT: full ROM. ABSENT: calf tenderness, clubbing, pedal edema Musculoskeletal exam: PRESENT: ambulatory Neurological exam: PRESENT: alert, awake, oriented to person, oriented to place, oriented to time, oriented to situation, CN II-XII grossly intact. ABSENT: motor sensory deficit Psychiatric exam: PRESENT: agitated, appropriate affect, normal mood. ABSENT: homicidal ideation, suicidal ideation Skin exam: PRESENT: dry, intact, warm. ABSENT: cyanosis, rash Results Laboratory Results: 11/18/18 04:16 11/18/18 04:16 11/19/18 11/20/18 15:02 12:15 Carbonic Acid 1.45 H 1.39 H HCO3/H2CO3 Ratio 18:1 21:1 ABG pH 7.36 7.43 ABG pCO2 48.1 H 46.3 H ABG pO2 80.1 74.9 L ABG HCO3 26.4 H 29.8 H ABG O2 Saturation 95.3 95.2 ABG Base Excess 0.4 4.6 FiO2 28% 25% 11/17/18 11/17/18 11:50 11:50 Creatine Kinase 25 L CK-MB (CK-2) 0.41 Troponin I < 0.012 Impressions: Chest X-Ray 11/19/18 00:00 IMPRESSION: COPD and vascular congestion. Assessment and Plan - Diagnosis (1) Acute respiratory failure with hypoxia Is this a current diagnosis for this admission?: Yes Plan: Secondary to COPD exacerbation. Patient is not home O2 dependent currently was requiring supplemental oxygen via nasal cannula to maintain oxygen saturations. AGB reveals Acute respiratory acidosis with hypercapnia and hypoxia Follow-up ABG is encouraging. She has been admitted to the medical floor and continuous cardiac telemetry. Continue supplemental oxygen as needed to maintain saturations 89 to 92%. Continue BiPAP Remaining management of COPD exacerbation is described below. (2) COPD exacerbation Is this a current diagnosis for this admission?: Yes Plan: Blood cultures have no growth at 72 hours Sputum cultures pending. Have empirically placed the patient on p.o. doxycycline due to increased sputum production; fluoroquinolones are contraindicated in patients with AAA, Azythromycin interacts with Tikosyn. Supplemental oxygen as needed to maintain saturations 89 to 92%. Patient placed on BiPAP; follow-up ABGs improved. Scheduled and as needed nebulizer treatments. Continue Pulmicort nebulizer treatment. Continue IV Solu-Medrol. Mucinex twice daily. Continue Singulair nightly. Incentive spirometer and flutter valve to bedside. The patient's only home medication is a rescue inhaler. She will require Spiriva and Symbicort or Breo at discharge. (3) HTN (hypertension) Qualifiers: Hypertension type: essential hypertension Qualified Code(s): I10 - Essential (primary) hypertension Is this a current diagnosis for this admission?: Yes Plan: The patient endorses a history of hypertension. Have resumed the patient's home dose lisinopril, carvedilol, and Lasix Cardiac diet. (4) CHF (congestive heart failure) Is this a current diagnosis for this admission?: Yes Plan: Patient endorses a history of CHF. She is currently stable and without exacerbation. Continue lisinopril, carvedilol and Lasix We will continue her home dose Coumadin; dosing per pharmacy. Cardiac diet, daily weights. (5) HLD (hyperlipidemia) Qualifiers: Hyperlipidemia type: pure hypercholesterolemia Qualified Code(s): E78.00 - Pure hypercholesterolemia, unspecified Is this a current diagnosis for this admission?: Yes Plan: Cardiac diet. Dietary discretion is advised. (6) Chronic anticoagulation Is this a current diagnosis for this admission?: Yes Plan: INR currently therapeutic. Follow up INR in am Pharmacy to manage Coumadin therapy. (7) PAF (paroxysmal atrial fibrillation) Is this a current diagnosis for this admission?: Yes Plan: Patient currently in sinus rhythm. Continue carvedilol and Tikosyn. Chronically anticoagulated with Coumadin; pharmacy to dose. (8) Tobacco abuse Is this a current diagnosis for this admission?: Yes Plan: Smoking cessation encouraged. Patient declines nicotine replacement therapy. - Time Time Spent with patient: 25-34 minutes Medications reviewed and adjusted accordingly: Yes Anticipated discharge: Home
[2018-11-20] MEDS ORDERED: LACTULOSE SYRUP 20 GM/30 ML UDCUP PO ONE (20:30)
[2018-11-20] MEDS: WARFARIN SODIUM 2 MG TABLET PO SCH (21:34)
[2018-11-20] MEDS: MONTELUKAST SODIUM 10 MG TABLET PO SCH (21:36)
[2018-11-21] MEDS: IPRATROPIUM/ALBUTEROL 0.5-2.5 MG/3 ML AMPUL NEB SCH ×4 (02:10→19:27)
[2018-11-21 04:51] LABS: HEMATOCRIT 37.3 % (36.0-47.0); HEMOGLOBIN 12.6 g/dL (12.0-15.5); MEAN CORPUSCULAR HEMOGLOBIN 30.8 pg (27.0-33.4); MEAN CORPUSCULAR HGB CONC 33.9 g/dL (32.0-36.0); MEAN CORPUSCULAR VOLUME 91 fl (80-97); PLATELET COUNT 229 10^3/uL (150-450); RED BLOOD COUNT 4.11 10^6/uL (3.72-5.28); RED CELL DISTRIBUTION WIDTH 13.8 % (11.5-14.0); WHITE BLOOD COUNT 11.7 10^3/uL (4.0-10.5)
[2018-11-21 05:02] LABS: PROTHROMBIN TIME 37.6 SEC (11.4-15.4)
[2018-11-21 05:12] LABS: ANION GAP 8 (5-19); BLOOD UREA NITROGEN 41 mg/dL (7-20); CALCIUM 9.5 mg/dL (8.4-10.2); CARBON DIOXIDE 33 mmol/L (22-30); CHLORIDE 98 mmol/L (98-107); GLUCOSE 134 mg/dL (75-110); POTASSIUM 4.2 mmol/L (3.6-5.0)
[2018-11-21] MEDS: METHYLPREDNISOLONE INJ 40 MG/1 ML SDV IV SCH ×3 (05:24→22:02)
[2018-11-21] MEDS ORDERED: LACTULOSE SYRUP 20 GM/30 ML UDCUP PO ONE (09:00)
[2018-11-21] MEDS: OXYCODONE HCL IR 5 MG TABLET PO PRN (09:14)
[2018-11-21] MEDS: GUAIFENESIN 600 MG TABLET.SA PO SCH ×2 (09:24→22:03)
[2018-11-21] MEDS: FAMOTIDINE 20 MG TABLET PO SCH ×2 (09:24→22:03)
[2018-11-21] MEDS: DOFETILIDE 125 MCG CAPSULE PO SCH ×2 (09:25→22:02)
[2018-11-21] MEDS: LISINOPRIL 10 MG TABLET PO SCH ×2 (09:25→22:04)
[2018-11-21] MEDS: DOXYCYCLINE HYCLATE 100 MG TABLET PO SCH (09:26)
[2018-11-21] MEDS: CARVEDILOL 12.5 MG TABLET PO SCH ×2 (09:27→22:02)
[2018-11-21] MEDS: FLUTICASONE NASAL SPRAY 50 MCG/SPRY 120 SPRAY/16 GM NASL SCH ×2 (09:27→21:47)
[2018-11-21] MEDS: FUROSEMIDE 40 MG TABLET PO SCH (11:39)
[2018-11-21] MEDS: HYDRALAZINE HCL INJ/PF 20 MG/1 ML SDV IV PRN (11:39)
[2018-11-21] MEDS ORDERED: ONDANSETRON HCL INJ/PF 4 MG/2 ML SDV IV PRN (14:30)
--- NOTE | 2018-11-21 17:52 | PDOC PROGRESS REPORT ---
Subjective Progress Note for:: 11/21/18 Subjective:: FLORECITA REILLY I is a 78 year old female with a past medical history of COPD, CHF, hypertension, CAD, A. fib, chronic anticoagulation on Coumadin, severe tobacco dependence, and opiate dependent chronic pain who was admitted 11/17/2018 for COPD exacerbation. The patient was seen on morning rounds. She was found resting in bed comfortably on supplemental oxygen by nasal cannula. She tells me that she is feeling much better today. She reports significant decrease in dyspnea while at rest, does continue to feel short of breath with minimal activity. She does continue to use BiPAP overnight and when sleeping. Overall, she is much improved. She denies fever, chest pain, palpitations, abdominal pain, nausea vomiting and diarrhea. She has no other questions or concerns at this time. No concerns per nursing. Reason For Visit: ACUTE COPD EXACERBATION Physical Exam Vital Signs: Temp Pulse Resp BP Pulse Ox 97.8 F 64 18 151/78 H 95 11/21/18 15:28 11/21/18 15:28 11/21/18 15:28 11/21/18 15:28 11/21/18 15:28 Intake & Output 11/20/18 11/21/18 11/22/18 06:59 06:59 06:59 Intake Total 1080 480 506 Output Total 1200 Balance -120 480 506 Weight 78.3 kg 74.7 kg General appearance: PRESENT: no acute distress, cooperative, well-developed, well-nourished - Overweight Head exam: PRESENT: atraumatic, normocephalic Eye exam: PRESENT: conjunctiva pink, EOMI, PERRLA. ABSENT: scleral icterus Ear exam: PRESENT: normal external ear exam Mouth exam: PRESENT: moist, tongue midline Neck exam: ABSENT: carotid bruit, JVD, lymphadenopathy, thyromegaly Respiratory exam: PRESENT: prolonged expiratory phas, rhonchi, symmetrical, unlabored, wheezes - Significantly improved, other - Supplemental oxygen/BiPAP. ABSENT: rales Cardiovascular exam: PRESENT: RRR, +S1, +S2. ABSENT: diastolic murmur, rubs, systolic murmur Pulses: PRESENT: normal dorsalis pedis pul Vascular exam: PRESENT: normal capillary refill GI/Abdominal exam: PRESENT: normal bowel sounds, soft. ABSENT: distended, guarding, mass, organolmegaly, rebound, tenderness Rectal exam: PRESENT: deferred Extremities exam: PRESENT: full ROM. ABSENT: calf tenderness, clubbing, pedal edema Musculoskeletal exam: PRESENT: ambulatory Neurological exam: PRESENT: alert, awake, oriented to person, oriented to place, oriented to time, oriented to situation, CN II-XII grossly intact. ABSENT: cale r sensory deficit Psychiatric exam: PRESENT: appropriate affect, normal mood. ABSENT: homicidal ideation, suicidal ideation Skin exam: PRESENT: dry, intact, warm. ABSENT: cyanosis, rash Results Laboratory Results: 11/21/18 04:04 11/21/18 04:04 11/21/18 11/21/18 04:04 04:04 WBC 11.7 H RBC 4.11 Hgb 12.6 Hct 37.3 MCV 91 MCH 30.8 MCHC 33.9 RDW 13.8 Plt Count 229 Sodium 138.6 Potassium 4.2 Chloride 98 Carbon Dioxide 33 H Anion Gap 8 BUN 41 H Creatinine 0.95 Est GFR ( Amer) > 60 Glucose 134 H Calcium 9.5 11/17/18 11/17/18 11:50 11:50 Creatine Kinase 25 L CK-MB (CK-2) 0.41 Troponin I < 0.012 Impressions: Chest X-Ray 11/19/18 00:00 IMPRESSION: COPD and vascular congestion. Assessment and Plan - Diagnosis (1) Acute respiratory failure with hypoxia Is this a current diagnosis for this admission?: Yes Plan: Improved; have been able to wean oxygen requirement, now on 1 to 2 L via nasal cannula. Discontinue use BiPAP when sleeping. Secondary to COPD exacerbation. Patient is not home O2 dependent currently was requiring supplemental oxygen via nasal cannula to maintain oxygen saturations. AGB reveals Acute respiratory acidosis with hypercapnia and hypoxia Follow-up ABG is encouraging. She has been admitted to the medical floor and continuous cardiac telemetry. Continue supplemental oxygen as needed to maintain saturations 89 to 92%. Continue BiPAP Remaining management of COPD exacerbation is described below. (2) COPD exacerbation Is this a current diagnosis for this admission?: Yes Plan: Improved; decreased oxygen requirement, improved comfort while at rest. Blood cultures have no growth at 4 days Sputum cultures pending. Have empirically placed the patient on p.o. doxycycline due to increased sputum production; fluoroquinolones are contraindicated in patients with AAA, Azythromycin interacts with Tikosyn. Supplemental oxygen as needed to maintain saturations 89 to 92%. Patient placed on BiPAP; follow-up ABGs improved. Scheduled and as needed nebulizer treatments; have decreased frequency. Continue Pulmicort nebulizer treatment. Have begun weaning IV Solu-Medrol. Mucinex twice daily. Continue Singulair nightly. Incentive spirometer and flutter valve to bedside. The patient's only home medication is a rescue inhaler. She will require Spiriva or Breo at discharge. (3) HTN (hypertension) Qualifiers: Hypertension type: essential hypertension Qualified Code(s): I10 - Essential (primary) hypertension Is this a current diagnosis for this admission?: Yes Plan: The patient endorses a history of hypertension. Blood pressures continue to be elevated. Have resumed the patient's home dose carvedilol, and Lasix Have increased lisinopril from 10 mg to 20 mg daily. Have added amlodipine 5 mg nightly. Cardiac diet. (4) CHF (congestive heart failure) Is this a current diagnosis for this admission?: Yes Plan: Patient endorses a history of CHF. She is currently stable and without exacerbation. Continue lisinopril, carvedilol and Lasix We will continue her home dose Coumadin; dosing per pharmacy. Cardiac diet, daily weights. (5) HLD (hyperlipidemia) Qualifiers: Hyperlipidemia type: pure hypercholesterolemia Qualified Code(s): E78.00 - Pure hypercholesterolemia, unspecified Is this a current diagnosis for this admission?: Yes Plan: Cardiac diet. Dietary discretion is advised. (6) Chronic anticoagulation Is this a current diagnosis for this admission?: Yes Plan: INR currently therapeutic. Follow up INR in am Pharmacy to manage Coumadin therapy. (7) PAF (paroxysmal atrial fibrillation) Is this a current diagnosis for this admission?: Yes Plan: Patient currently in sinus rhythm. Continue carvedilol and Tikosyn. Chronically anticoagulated with Coumadin; pharmacy to dose. (8) Tobacco abuse Is this a current diagnosis for this admission?: Yes Plan: Smoking cessation encouraged. Patient declines nicotine replacement therapy. - Time Time Spent with patient: 15-24 minutes Medications reviewed and adjusted accordingly: Yes Anticipated discharge: Home Within: within 48 hours
[2018-11-21] MEDS ORDERED: AMLODIPINE BESYLATE 5 MG TABLET PO SCH (22:00)
[2018-11-21] MEDS: MONTELUKAST SODIUM 10 MG TABLET PO SCH (22:04)
[2018-11-22] MEDS: OXYCODONE HCL IR 5 MG TABLET PO PRN (00:28)
[2018-11-22] MEDS: IPRATROPIUM/ALBUTEROL 0.5-2.5 MG/3 ML AMPUL NEB SCH ×2 (01:59→07:28)
[2018-11-22 05:06] LABS: HEMATOCRIT 38.5 % (36.0-47.0); HEMOGLOBIN 12.9 g/dL (12.0-15.5); MEAN CORPUSCULAR HEMOGLOBIN 30.2 pg (27.0-33.4); MEAN CORPUSCULAR HGB CONC 33.4 g/dL (32.0-36.0); MEAN CORPUSCULAR VOLUME 91 fl (80-97); PLATELET COUNT 222 10^3/uL (150-450); RED BLOOD COUNT 4.25 10^6/uL (3.72-5.28); RED CELL DISTRIBUTION WIDTH 13.5 % (11.5-14.0); WHITE BLOOD COUNT 14.3 10^3/uL (4.0-10.5)
[2018-11-22] MEDS: METHYLPREDNISOLONE INJ 40 MG/1 ML SDV IV SCH (05:21)
[2018-11-22 05:22] LABS: ANION GAP 7 (5-19); BLOOD UREA NITROGEN 47 mg/dL (7-20); CALCIUM 8.9 mg/dL (8.4-10.2); CARBON DIOXIDE 32 mmol/L (22-30); CHLORIDE 99 mmol/L (98-107); GLUCOSE 130 mg/dL (75-110); POTASSIUM 4.5 mmol/L (3.6-5.0)
[2018-11-22] MEDS: GUAIFENESIN 600 MG TABLET.SA PO SCH (10:22)
[2018-11-22] MEDS: DOFETILIDE 125 MCG CAPSULE PO SCH (10:22)
[2018-11-22] MEDS: FUROSEMIDE 40 MG TABLET PO SCH (10:22)
[2018-11-22] MEDS: DOXYCYCLINE HYCLATE 100 MG TABLET PO SCH (10:22)
[2018-11-22] MEDS: FLUTICASONE NASAL SPRAY 50 MCG/SPRY 120 SPRAY/16 GM NASL SCH (10:23)
[2018-11-22] MEDS: CARVEDILOL 12.5 MG TABLET PO SCH (10:23)
[2018-11-22] MEDS: FAMOTIDINE 20 MG TABLET PO SCH (10:23)
[2018-11-22] MEDS: LISINOPRIL 10 MG TABLET PO SCH (10:23)
--- NOTE | 2018-11-22 10:24 | PDOC DISCHARGE SUMMARY ---
General - Admit/Disc Date/PCP Admission Date/Primary Care Provider: 11/19/18 10:37 Discharge Date: 11/22/18 - Discharge Diagnosis (1) Acute respiratory failure with hypoxia Is this a current diagnosis for this admission?: Yes (2) Chronic anticoagulation Is this a current diagnosis for this admission?: Yes (3) HTN (hypertension) Is this a current diagnosis for this admission?: Yes (4) PAF (paroxysmal atrial fibrillation) Is this a current diagnosis for this admission?: Yes (5) Tobacco abuse Is this a current diagnosis for this admission?: Yes (6) CHF (congestive heart failure) Is this a current diagnosis for this admission?: Yes (7) COPD exacerbation Is this a current diagnosis for this admission?: Yes (8) HLD (hyperlipidemia) Is this a current diagnosis for this admission?: Yes - Additional Information Resuscitation Status: Full Code Discharge Diet: As Tolerated Discharge Activity: Activity As Tolerated Prescriptions: Ipratropium/Albuterol Sulfate [Duoneb 3 ml Ampul] 3 ml NEB RTQ6 #60 vial.neb Fluticasone Propionate [Flonase Nasal Bracey 50 Mcg/Bracey 16 gm] 2 spray NASL Q12 #1 spray.pump Guaifenesin [Mucinex Sr 600 mg Tablet.sa] 600 mg PO Q12 #14 tablet.sa Amlodipine Besylate [Norvasc 5 mg Tablet] 5 mg PO QHS #30 tablet Famotidine [Pepcid 20 mg Tablet] 20 mg PO Q12 #30 tablet Lisinopril [Prinivil 10 mg Tablet] 20 mg PO Q12 #60 tablet Montelukast Sodium [Singulair 10 mg Tablet] 10 mg PO QHS #30 tablet Albuterol Sulfate [Ventolin 0.083% Neb 2.5 mg/3 mL Ampul] 2.5 mg NEB RTQ4HP PRN #60 vial.neb PRN Reason: Doxycycline Hyclate [Vibramycin 100 mg Tablet] 200 mg PO DAILY #3 tablet Home Medications: Carvedilol [Coreg 25 mg Tablet] 25 mg PO Q12 07/10/16 Dofetilide [Tikosyn 125 Mcg Capsule] 125 mcg PO Q12 07/10/16 Furosemide [Lasix] 40 mg PO DAILY 07/10/16 Warfarin Sodium [Coumadin 4 mg Tablet] 4 mg PO QHS 07/10/16 Oxycodone HCl 15 mg PO TIDP PRN 11/17/18 Oxycodone Myristate [Xtampza ER] 9 mg PO QPM 11/17/18 Albuterol Sulfate [Ventolin 0.083% Neb 2.5 mg/3 mL Ampul] 2.5 mg NEB RTQ4HP PRN #60 vial.neb 11/22/18 Amlodipine Besylate [Norvasc 5 mg Tablet] 5 mg PO QHS #30 tablet 11/22/18 Doxycycline Hyclate [Vibramycin 100 mg Tablet] 200 mg PO DAILY #3 tablet 11/22/18 Famotidine [Pepcid 20 mg Tablet] 20 mg PO Q12 #30 tablet 11/22/18 Fluticasone Propionate [Flonase Nasal Bracey 50 Mcg/Bracey 16 gm] 2 spray NASL Q12 #1 spray.pump 11/22/18 Guaifenesin [Mucinex Sr 600 mg Tablet.sa] 600 mg PO Q12 #14 tablet.sa 11/22/18 Ipratropium/Albuterol Sulfate [Duoneb 3 ml Ampul] 3 ml NEB RTQ6 #60 vial.neb 11/22/18 Lisinopril [Prinivil 10 mg Tablet] 20 mg PO Q12 #60 tablet 11/22/18 Montelukast Sodium [Singulair 10 mg Tablet] 10 mg PO QHS #30 tablet 11/22/18 Nicotine [Nicoderm 21 mg/24 Hr Transderm Patch] 1 each TD DAILYP PRN patch.td24 11/22/18 History of Present Illness Patient complains of: Shortness of breath History of Present Illness: FLORECITA REILLY I is a 78 year old female with a past medical history of COPD, CHF, hypertension, CAD, A. fib, chronic anticoagulation on Coumadin, severe tobacco dependence, and opiate dependent chronic pain who presented to the emergency department today with a complaint of 1 week of progressively worsening shortness of breath and productive cough. She is not home O2 dependent. Evaluation in the emergency department was essentially unremarkable with normal vital signs, benign CBC, therapeutic INR (2.37), unremarkable chemistry with normal troponin and lactic acid, EKG demonstrating normal sinus rhythm, and chest x-ray demonstrating COPD but no acute cardiopulmonary findings. Patient was provided IV magnesium, Solu-Medrol, nebulizer treatment, and supplemental oxygen. She continues to have dyspnea at rest with rhonchi and wheezing throughout. She is referred to the hospitalist service for admission and management of COPD exacerbation Hospital Course Hospital Course: (1) Acute respiratory failure with hypoxia Secondary to COPD exacerbation. Improved; have been able to wean oxygen requirement, now on 1 to 2 L via nasal cannula. Discontinued use BiPAP when sleeping. Patient is not home O2 dependent currently was requiring supplemental oxygen via nasal cannula to maintain oxygen saturations. AGB reveals Acute respiratory acidosis with hypercapnia and hypoxia Follow-up ABG showed improvement. She has been admitted to the medical floor and continuous cardiac telemetry. Continue supplemental oxygen as needed to maintain saturations 89 to 92%. Remaining management of COPD exacerbation is described below. We will remove oxygen prior to discharge and see if she qualifies for oxygen or not. (2) COPD exacerbation Improved; decreased oxygen requirement, improved comfort while at rest. Blood cultures have no growth at 4 days Sputum cultures pending. Have empirically placed the patient on p.o. doxycycline due to increased sputum production; fluoroquinolones are contraindicated in patients with AAA, A zythromycin interacts with Tikosyn. Supplemental oxygen as needed to maintain saturations 89 to 92%. Patient placed on BiPAP; follow-up ABGs improved. Scheduled and as needed nebulizer treatments; have decreased frequency. Continue Pulmicort nebulizer treatment. Have begun weaning IV Solu-Medrol. Will discharge on short course of oral prednisone. Mucinex twice daily. Continue Singulair nightly. Received incentive spirometer and flutter valve to bedside. The patient's only home medication is a rescue inhaler. Continue Spiriva at discharge. (3) HTN (hypertension) The patient endorses a history of hypertension. Blood pressures continue to be elevated. Have resumed the patient's home dose carvedilol, and Lasix Have increased lisinopril from 10 mg to 20 mg daily. Have added amlodipine 5 mg nightly. Cardiac diet. (4) CHF (congestive heart failure) Patient endorses a history of CHF. She is currently stable and without exacerbation. Continue lisinopril, carvedilol and Lasix We will continue her home dose Coumadin; dosing per pharmacy. Cardiac diet, daily weights. (5) HLD (hyperlipidemia) Cardiac diet. Dietary discretion is advised. (6) Chronic anticoagulation INR currently therapeutic. Continue Coumadin and monitor INR outpatient. (7) PAF (paroxysmal atrial fibrillation) Patient currently in sinus rhythm. Continue carvedilol and Tikosyn. Chronically anticoagulated with Coumadin (8) Tobacco abuse Smoking cessation encouraged. Patient declines nicotine replacement therapy. Okay to discharge to home with home care. Oxygen requirement will be evaluated prior to discharge. Discussed with the patient and the patient is in agreement. Physical Exam Vital Signs: Temp Pulse Resp BP Pulse Ox 97.9 F 64 18 142/43 H 96 11/22/18 08:16 11/22/18 08:16 11/22/18 08:16 11/22/18 08:16 11/22/18 08:16 Intake & Output 11/21/18 11/22/18 11/23/18 06:59 06:59 06:59 Intake Total 480 1742 Balance 480 1742 Weight 164 lb 10.965 oz 164 lb 7.437 oz Exam: Patient is no acute distress Alert oriented to time place person No anxiety or depression Head: atraumatic normocephalic Pupils: are equal reactive Neck: is supple and trachea is central no lymphadenopathy No pharyngeal erythema or exudates Heart: Regular rate and rhythm Lungs: Scattered rhonchi. No distress Abdomen: nontender nondistended Neurological exam: unremarkable Musculoskeletal: No joint swelling or effusion chronic lower back pain and t enderness No suicidal or homicidal ideation Results Laboratory Results: 11/22/18 04:35 11/22/18 04:35 11/22/18 11/22/18 04:35 04:35 WBC 14.3 H RBC 4.25 Hgb 12.9 Hct 38.5 MCV 91 MCH 30.2 MCHC 33.4 RDW 13.5 Plt Count 222 Sodium 137.6 Potassium 4.5 Chloride 99 Carbon Dioxide 32 H Anion Gap 7 BUN 47 H Creatinine 1.02 Est GFR ( Amer) > 60 Glucose 130 H Calcium 8.9 11/17/18 11/17/18 11:50 11:50 Creatine Kinase 25 L CK-MB (CK-2) 0.41 Troponin I < 0.012 Impressions: Chest X-Ray 11/19/18 00:00 IMPRESSION: COPD and vascular congestion. Qualifiers - * PATIENT BEING DISCHARGED WITH ANY OF THE FOLLOWING DIAGNOSIS: No Acute Heart Failure - Is this a Heart Failure Patient?: No Plan Time Spent: Greater than 30 Minutes - 5 minutes
[2018-11-22 11:05] VITALS: BP 172/63
[2018-11-22] MEDS ORDERED: XTAMPZA 9 MG PO SCH (18:00)
[2018-11-22] MEDS ORDERED: WARFARIN SODIUM 2.5 MG TABLET PO SCH (22:00)
[2018-11-22] MEDS ORDERED: WARFARIN SODIUM 1 MG TABLET PO SCH (22:00)
== END 2018-11-22 12:54 | disposition home health service (06) | DRG 189 ==
LOC: ER 11:35 → EH 15:58 → INTOOBSV 15:58 → 4N 18:37 → OBSVTOIN 11-19 10:37
PROVIDERS: ADMIT Family Medicine; ATTEND Family Medicine
DX: J96.01 Acute respiratory failure with hypoxia (principal); J44.1 Chronic obstructive pulmonary disease with (acute) exacerbation; I50.9 Heart failure, unspecified; I11.0 Hypertensive heart disease with heart failure; I48.0 Paroxysmal atrial fibrillation; E78.00 Pure hypercholesterolemia, unspecified; K21.9 Gastro-esophageal reflux disease without esophagitis; F17.210 Nicotine dependence, cigarettes, uncomplicated; Z95.2 Presence of prosthetic heart valve; Z79.2 Long term (current) use of antibiotics; Z79.01 Long term (current) use of anticoagulants; Z79.51 Long term (current) use of inhaled steroids; Z79.52 Long term (current) use of systemic steroids; Z79.899 Other long term (current) drug therapy
CPT/HCPCS: 36415; 36600; 71045; 80048; 80053; 81001; 82550; 82553; 82803; 83605; 83735; 84484; 85025; 85027; 85610; 87040; 93005; 93010; 94640; 94660; 94799; 96365; 96375; 99291; G0378; J0360; J2920; J2930; J3475; J3490; J7030; J7620

== ENCOUNTER 2019-08-13 03:26 | Inpatient (IN) | payer BC, MEDICARE ==
--- NOTE | 2019-08-13 04:41 | ER Document Report ---
ED Respiratory Problem - General TRAVEL OUTSIDE OF THE [place] IN LAST 30 DAYS: No <TARA LEPE - Last Filed: 08/13/19 07:55> <DORA KENNEDY - Last Filed: 08/13/19 09:35> - General Chief Complaint: Breathing Difficulty Stated Complaint: DIFFICULTY BREATHING Time Seen by Provider: 08/13/19 04:31 Notes: Patient is a 79-year-old female that comes emergency department from home for chief complaint of difficulty breathing. She states she has had worsening shortness of breath and swelling in both lower extremities for the past week, she states that is gotten to the point that she cannot move at all without significant shortness of breath and she cannot lie flat. She states that she does have a history of CHF and COPD, she has been using her inhalers and her diuretics, she states that despite using her diuretics her symptoms continue to worsen. She takes 40 mg of Lasix daily. She also takes Coumadin for atrial fibrillation. She has had some intermittent discomfort in her chest but denies current chest pain, she denies fever, she reports occasional mild cough. She denies any sick contacts or recent travel. She is not on home oxygen. She follows with cardiology and Amanda, primary care doctor Jennifer. She states she still smokes occasionally. (TARA LEPE) - Related Data Allergies/Adverse Reactions: oxymorphone HCl [From Opana] Allergy (Severe, Verified 11/25/10 13:44) tramadol [Tramadol] Adverse Reaction (Intermediate, Verified 07/17/11 11:54) Hallucinations Past Medical History - General Information source: Patient - Social History Smoking Status: Current Some Day Smoker Frequency of alcohol use: None Drug Abuse: None Lives with: Alone Family History: Reviewed & Not Pertinent - Past Medical History Cardiac Medical History: Reports: Hx Atrial Fibrillation, Hx Congestive Heart Failure, Hx Coronary Artery Disease, Hx Hypercholesterolemia, Hx Hypertension, Hx Peripheral Vascular Disease Denies: Hx Heart Attack Pulmonary Medical History: Reports: Hx COPD Neurological Medical History: Denies: Hx Cerebrovascular Accident, Hx Seizures, Hx Parkinson's Disease Endocrine Medical History: Denies: Hx Diabetes Mellitus Type 2, Hx Hypothyroidism Renal/ Medical History: Denies: Hx End Stage Renal Disease, Hx Kidney Stones, Hx Ovarian Cysts, Hx Peritoneal Dialysis, Hx Pelvic Inflammatory Disease Malignancy Medical History: Denies: Hx Breast Cancer, Hx Cervical Cancer, Hx Lung Cancer, Hx Ovarian Cancer GI Medical History: Reports: Hx Gastroesophageal Reflux Disease. Denies: Hx Crohn's Disease, Hx Hiatal Hernia, Hx Irritable Bowel, Hx Liver Failure, Hx Pancreatitis, Hx Ulcer Musculoskeletal Medical History: Denies Hx Arthritis, Denies Hx Fibromyalgia, Denies Hx Multiple Sclerosis, Denies Hx Muscular Dystrophy Psychiatric Medical History: Denies: Hx Dementia Traumatic Medical History: Denies: Hx Fractures Past Surgical History: Reports: Hx Cardiac Surgery - Mitral Valve Replacement, Hx Tonsillectomy, Hx Valve Replacement. Denies: Hx Bowel Surgery, Hx Cardiac Catheterization, Hx Coronary Artery Bypass Graft, Hx Coronary Stent - Immunizations Hx Pneumococcal Vaccination: 11/07/11 <TARA LEPE - Last Filed: 08/13/19 07:55> Review of Systems - Review of Systems Constitutional: No symptoms reported EENT: No symptoms reported Cardiovascular: See HPI Respiratory: See HPI Gastrointestinal: No symptoms reported Genitourinary: No symptoms reported Female Genitourinary: No symptoms reported Musculoskeletal: No symptoms reported Skin: No symptoms reported Hematologic/Lymphatic: No symptoms reported Neurological/Psychological: No symptoms reported <TARA LEPE - Last Filed: 08/13/19 07:55> Physical Exam <TARA LEPE - Last Filed: 08/13/19 07:55> - Vital signs Vitals: Temp 98.8 F 08/13/19 03:27 - Notes Notes: GENERAL: Alert, interacts well. No acute distress. HEAD: Normocephalic, atraumatic. EYES: Pupils equal, round, and reactive to light. Extraocular movements intact. ENT: Oral mucosa moist, tongue midline. Oropharynx unremarkable. Airway patent. NECK: Full range of motion. Supple. Trachea midline. No lymphadenopathy. LUNGS: No wheezing or rhonchi, no coughing, however there are rales noted in both mid to lower lung foote. Patient speaks in full sentences, no respiratory distress. HEART: Regular rate and rhythm. ABDOMEN: Soft, non-tender. Non-distended. EXTREMITIES: Moves all 4 extremities spontaneously. 1+ pitting edema bilaterally. Normal radial and dorsalis pedis pulses bilaterally. No cyanosis. BACK: no cervical, thoracic, lumbar midline tenderness. No saddle anesthesia, normal distal neurovascular exam. Moves all extremities in full range of motion. NEUROLOGICAL: Alert and oriented x3. Normal speech. Cranial nerves II through XII grossly intact. Strength 5/5 in all extremities. PSYCH: Normal affect, normal mood. SKIN: Warm, dry, normal turgor. No rashes or lesions noted. (TARA LEPE) Course - Laboratory Result Diagrams: 08/13/19 04:55 08/13/19 04:55 <TARA LEPE - Last Filed: 08/13/19 07:55> - Laboratory Result Diagrams: 08/13/19 04:55 08/13/19 04:55 <DORA KENNEDY - Last Filed: 08/13/19 09:35> - Re-evaluation Re-evalutation: Patient presents with bilateral lower extremity edema, rales on exam, inability to lie flat, reporting that she can only take a couple of steps without significant difficulty breathing. She states the only time she does not have significant shortness of breath is when she is upright at rest. Patient is also hypertensive on evaluation. Patient was given transdermal nitroglycerin, started on Lasix. CBC unremarkable, chemistry shows mild elevation of creatinine at 1.28 but not significantly changed from prior. BNP is greater than 5000, approximately double her previous norm. Most recent echocardiogram in the system is in 2011, patient does not recall having one anytime recently. Chest x-ray does not show any overt acute findings. However based on patient's evaluation including rales on exam, lower extremity edema, dyspnea on exertion, orthopnea, hypertension, and her elderly age along with living alone, I discussed with patient, will discuss with hospitalist for admission for CHF exacerbation and dyspnea. 08/13/[address] Avendano, hospitalist, he will come evaluate the patient. (TARA LEPE) - Vital Signs Vital signs: Temp Pulse Resp BP Pulse Ox 98.1 F 70 18 159/65 H 98 08/13/19 09:21 08/13/19 03:34 08/13/19 05:09 08/13/19 05:09 08/13/19 05:09 - Laboratory Laboratory results interpreted by me: 08/13/19 08/13/19 08/13/19 04:55 04:55 04:55 WBC 11.4 H RDW 14.1 H Lymph % (Auto) 5.4 L Bladen % (Auto) 2.3 L Absolute Neuts (auto) 10.4 H Seg Neutrophils % 91.8 H PT Sodium 134.9 L BUN 31 H Creatinine 1.28 H Est GFR ( Amer) 49 L Est GFR (MDRD) Non-Af 40 L Glucose 154 H NT-Pro-B Natriuret Pep 5440 H Urine Blood 08/13/19 08/13/19 04:55 06:07 WBC RDW Lymph % (Auto) Bladen % (Auto) Absolute Neuts (auto) Seg Neutrophils % PT 27.7 H Sodium BUN Creatinine Est GFR ( Amer) Est GFR (MDRD) Non-Af Glucose NT-Pro-B Natriuret Pep Urine Blood SMALL H - EKG Interpretation by Me Additional EKG results interpreted by me: EKG shows sinus rhythm at a rate of 65, borderline prolonged QT interval at QTC of 500, normal axis. Slightly peaked T waves. Borderline ST depression in V3 but no T wave inversions or ST segment changes in consecutive leads. (TARA LEPE) Discharge <TARA LEPE - Last Filed: 08/13/19 07:55> - Discharge Admitting Provider: Juan Alberto (Hospitalist) Unit Admitted: Telemetry <DORA KENNEDY - Last Filed: 08/13/19 09:35> - Discharge Clinical Impression: Bilateral lower extremity edema, Dyspnea on exertion CHF exacerbation Qualifiers: Heart failure type: unspecified Qualified Code(s): I50.9 - Heart failure, unspecified Condition: Stable Disposition: ADMITTED INPATIENT
[2019-08-13] MEDS ORDERED: NITROGLYCERIN 5 MG (0.2 MG/HR) PATCH.TD24 TD ONE (05:18)
[2019-08-13 05:38] LABS: ABSOLUTE LYMPHOCYTES (AUTO) 0.6 10^3/uL (0.5-4.7); ABSOLUTE MONOCYTES (AUTO) 0.3 10^3/uL (0.1-1.4); ABSOLUTE NEUT (AUTO) 10.4 10^3/uL (1.7-8.2); BASOPHILS % (AUTO) 0.2 % (0-2); EOSINOPHILS % (AUTO) 0.3 % (0-6); HEMATOCRIT 36.5 % (36.0-47.0); HEMOGLOBIN 12.2 g/dL (12.0-15.5); LYMPHOCYTES % (AUTO) 5.4 % (13-45); MEAN CORPUSCULAR HGB CONC 33.5 g/dL (32.0-36.0); MEAN CORPUSCULAR VOLUME 90 fl (80-97); MONOCYTES % (AUTO) 2.3 % (3-13); PLATELET COUNT 208 10^3/uL (150-450); RED BLOOD COUNT 4.08 10^6/uL (3.72-5.28); RED CELL DISTRIBUTION WIDTH 14.1 % (11.5-14.0); SEGMENTED NEUTROPHILS % (AUTO) 91.8 % (42-78); TOTAL CELLS COUNTED % (AUTO) 100 %; WHITE BLOOD COUNT 11.4 10^3/uL (4.0-10.5)
[2019-08-13 05:55] LABS: ALBUMIN 3.8 g/dL (3.5-5.0); ALKALINE PHOSPHATASE 84 U/L (38-126); ANION GAP 6 (5-19); ASPARTATE AMINO TRANSFERASE 18 U/L (14-36); BILIRUBIN,TOTAL 0.8 mg/dL (0.2-1.3); BLOOD UREA NITROGEN 31 mg/dL (7-20); CALCIUM 8.7 mg/dL (8.4-10.2); CARBON DIOXIDE 28 mmol/L (22-30); CHLORIDE 101 mmol/L (98-107); GLUCOSE 154 mg/dL (75-110); POTASSIUM 4.6 mmol/L (3.6-5.0); TOTAL PROTEIN 6.5 g/dL (6.3-8.2)
[2019-08-13 06:14] LABS: NT PRO BNP 5440 pg/mL (<450)
[2019-08-13 06:18] LABS: TROPONIN I < 0.012 ng/mL
--- NOTE | 2019-08-13 06:24 | RADIOLOGY REPORT (SQ) ---
EXAM: XR Chest, 1 View EXAM DATE/TIME: 08/13/2019 04:57 CLINICAL HISTORY: The patient is 79 years old and is Female; shortness of breath, rales on exam TECHNIQUE: Frontal view of the chest. COMPARISON: Chest radiograph from 11/19/2018 FINDINGS: LUNGS: Areas of mild parenchymal scarring again visualized projecting over the right lung. There are also minimal bibasilar densities, right more than left, which may represent atelectasis. The upper lungs are clear. PLEURAL SPACE: Slight blunting of the right costophrenic angle is unchanged and likely represents scarring. No pneumothorax. HEART: Stable mild enlargement of the cardiac silhouette. MEDIASTINUM: Unremarkable. BONES/JOINTS: No acute osseous findings. TUBES, LINES AND DEVICES: Spinal cord stimulator in place. IMPRESSION: Minimal bibasilar densities suggesting atelectasis, with superimposed parenchymal scarring in the right lower lung.
[2019-08-13] MEDS ORDERED: FUROSEMIDE INJ/PF 40 MG/4 ML SDV IV ONE (06:27)
[2019-08-13 06:45] LABS: APPEARANCE,URINE CLEAR; BILIRUBIN,URINE NEGATIVE (NEGATIVE); COLOR,URINE YELLOW; GLUCOSE, URINE NEGATIVE (NEGATIVE); KETONES,URINE NEGATIVE (NEGATIVE); LEUKOCYTE ESTERASE,URINE NEGATIVE (NEGATIVE); NITRITE,URINE NEGATIVE (NEGATIVE); PROTEIN,URINE NEGATIVE (NEGATIVE); URINE SPECIFIC GRAVITY 1.019; UROBILINOGEN,URINE NEGATIVE mg/dL (<2.0)
[2019-08-13 07:10] LABS: INTERNATIONAL RATION (INR) 2.53; PROTHROMBIN TIME 27.7 SEC (11.4-15.4)
[2019-08-13] MEDS ORDERED: ACETAMINOPHEN 325 MG TABLET PO PRN ×2 (08:38→08:51)
[2019-08-13] MEDS ORDERED: MAG HYDROX/AL HYDROX/SIMETH SUSP 30 ML UDCUP PO PRN (08:38)
[2019-08-13] MEDS ORDERED: NICOTINE 21 MG/24 HR PATCH.TD24 TD PRN (08:46)
[2019-08-13] MEDS ORDERED: IPRATROPIUM/ALBUTEROL 0.5-2.5 MG/3 ML AMPUL NEB PRN (08:46)
--- NOTE | 2019-08-13 09:10 | PDOC H&P ---
History of Present Illness Patient complains of: Shortness of breath and leg swelling History of Present Illness: FLORECITA REILLY is a 79 year old female with a history of atrial fibrillation, CHF, COPD, AAA, bioprosthetic valve replacement, who presents to the hospital with complaints of progressive shortness of breath for the past 1 week as well as leg swelling. Symptoms initially began with a 15-minute episode of substernal chest pain that she experienced on approximately 1 week ago. The symptoms resolved and has not recurred but she has subsequently noted increased shortness of breath and leg swelling mostly involving her feet bilaterally. The dyspnea is mostly on ambulation including ambulating distances across rooms in her home. Denies any nausea vomiting. Denies PND. Denies any sick contacts. Denies fever chills. Past Medical History Cardiac Medical History: Reports: Atrial Fibrillation, Congestive Heart Failure, Hyperlipidema, Hypertension Denies: Myocardial Infarction Pulmonary Medical History: Reports: Chronic Obstructive Pulmonary Disease (COPD) Neurological Medical History: Denies: Seizures Endocrine Medical History: Denies: Diabetes Mellitus Type 2, Hypothyroidism Renal/ Medical History: Denies: End Stage Renal Disease Malignancy Medical History: Denies: Breast Cancer, Cervical Cancer, Lung Cancer, Ovarian Cancer GI Medical History: Reports: Gastroesophageal Reflux Disease Denies: Crohn's Disease, Hiatal Hernia Musculoskeltal Medical History: Denies: Arthritis, Fibromyalgia Psychiatric Medical History: Denies: Dementia Hematology: Denies: Anemia Past Surgical History Past Surgical History: Reports: Tonsillectomy, Valve Replacement Denies: Cardiac Catheterization, Coronary Artery Bypass Graft, Coronary Stent Social History Lives with: Alone Smoking Status: Current Some Day Smoker Frequency of Alcohol Use: None Hx Recreational Drug Use: No Drugs: None Hx Prescription Drug Abuse: No - Advance Directive Resuscitation Status: Other - DNR/DNI in the setting of cardiac arrest. However, patient allows for intubation in the absence of cardiac arrest if done because she is dyspneic/suffocating. Family History Family History: Hypertension, Other - Heart disease Parental Family History Reviewed: Yes Children Family History Reviewed: Unknown Sibling(s) Family History Reviewed.: Unknown Medication/Allergy Home Medications: Carvedilol [Coreg 25 mg Tablet] 25 mg PO Q12 07/10/16 Dofetilide [Tikosyn 125 Mcg Capsule] 125 mcg PO Q12 07/10/16 Furosemide [Lasix] 40 mg PO DAILY 07/10/16 Warfarin Sodium [Coumadin 4 mg Tablet] 4 mg PO QHS 07/10/16 Oxycodone HCl 15 mg PO TIDP PRN 11/17/18 Oxycodone Myristate [Xtampza ER] 9 mg PO QPM 11/17/18 Albuterol Sulfate [Ventolin 0.083% Neb 2.5 mg/3 mL Ampul] 2.5 mg NEB RTQ4HP PRN #60 vial.neb 11/22/18 Amlodipine Besylate [Norvasc 5 mg Tablet] 5 mg PO QHS #30 tablet 11/22/18 Doxycycline Hyclate [Vibramycin 100 mg Tablet] 200 mg PO DAILY #3 tablet 11/22/18 Famotidine [Pepcid 20 mg Tablet] 20 mg PO Q12 #30 tablet 11/22/18 Fluticasone Propionate [Flonase Nasal [place] 50 Mcg/[place] 16 gm] 2 spray NASL Q12 #1 spray.pump 11/22/18 Guaifenesin [Mucinex Sr 600 mg Tablet.sa] 600 mg PO Q12 #14 tablet.sa 11/22/18 Ipratropium/Albuterol Sulfate [Duoneb 3 ml Ampul] 3 ml NEB RTQ6 #60 vial.neb 11/22/18 Lisinopril [Prinivil 10 mg Tablet] 20 mg PO Q12 #60 tablet 11/22/18 Montelukast Sodium [Singulair 10 mg Tablet] 10 mg PO QHS #30 tablet 11/22/18 Nicotine [Nicoderm 21 mg/24 Hr Transderm Patch] 1 each TD DAILYP PRN patch.td24 11/22/18 Prednisone [Deltasone 20 mg Tablet] 40 mg PO DAILY #6 tablet 11/22/18 Tiotropium [place] [Spiriva Respimat] 4 gm IH DAILY #1 mist.inhal 11/22/18 Allergies/Adverse Reactions: oxymorphone HCl [From Opana] Allergy (Severe, Verified 11/25/10 13:44) tramadol [Tramadol] Adverse Reaction (Intermediate, Verified 07/17/11 11:54) Hallucinations Review of Systems Constitutional: ABSENT: chills, fatigue, fever(s) Eyes: ABSENT: visual disturbances Nose, Mouth, and Throat: ABSENT: headache(s) Cardiovascular: ABSENT: chest pain Respiratory: PRESENT: cough, dyspnea, sputum Gastrointestinal: ABSENT: abdominal pain, nausea, vomiting Genitourinary: ABSENT: dysuria Musculoskeletal: PRESENT: back pain Integumentary: ABSENT: diaphoresis Neurological: ABSENT: dizziness Endocrine: ABSENT: polyuria Allergic/Immunologic: PRESENT: other - Denies rhinorrhea Physical Exam Vital Signs: Temp Pulse Resp BP Pulse Ox 98.8 F 70 18 159/65 H 98 08/13/19 03:34 08/13/19 03:34 08/13/19 05:09 08/13/19 05:09 08/13/19 05:09 Intake & Output 08/12/19 08/13/19 08/14/19 06:59 06:59 06:59 Weight 77.111 kg General appearance: PRESENT: no acute distress, cooperative Neck exam: PRESENT: other - Mildly positive hepatojugular reflux. ABSENT: JVD Respiratory exam: PRESENT: crackles, symmetrical, unlabored. ABSENT: tachypnea, wheezes Cardiovascular exam: PRESENT: RRR, +S1, +S2. ABSENT: tachycardia GI/Abdominal exam: PRESENT: soft. ABSENT: rebound, rigid, tenderness Extremities exam: PRESENT: pedal edema - Trace up to ankle bilateral Neurological exam: PRESENT: alert, awake, oriented to person, oriented to place, oriented to time Psychiatric exam: ABSENT: agitated, anxious Focused psych exam: ABSENT: pressured speech Skin exam: ABSENT: jaundice Results Laboratory Results: 08/13/19 04:55 08/13/19 04:55 08/13/19 08/13/19 08/13/19 04:55 04:55 06:07 WBC 11.4 H RBC 4.08 Hgb 12.2 Hct 36.5 MCV 90 MCH 30.0 MCHC 33.5 RDW 14.1 H Plt Count 208 Seg Neutrophils % 91.8 H Sodium 134.9 L Potassium 4.6 Chloride 101 Carbon Dioxide 28 Anion Gap 6 BUN 31 H Creatinine 1.28 H Est GFR ( Amer) 49 L Glucose 154 H Calcium 8.7 Total Bilirubin 0.8 AST 18 Alkaline Phosphatase 84 Total Protein 6.5 Albumin 3.8 Urine Color YELLOW Urine Appearance CLEAR Urine pH 5.0 Ur Specific [place] 1.019 Urine Protein NEGATIVE Urine Glucose (UA) NEGATIVE Urine Ketones NEGATIVE Urine Blood SMALL H Urine Nitrite NEGATIVE Ur Leukocyte Esterase NEGATIVE Urine WBC (Auto) 1 Urine RBC (Auto) 3 08/13/19 04:55 Troponin I < 0.012 NT-Pro-B Natriuret Pep 5440 H Impressions: Chest X-Ray 08/13/19 04:38 IMPRESSION: Minimal bibasilar densities suggesting atelectasis, with superimposed parenchymal scarring in the right lower lung. Assessment and Plan - Diagnosis (1) CHF exacerbation Qualifiers: Heart failure type: unspecified Qualified Code(s): I50.9 - Heart failure, unspecified Is this a current diagnosis for this admission?: Yes Plan: Possibly having acute CHF exacerbation. EF unknown as she has not had any recent echoes. I will check echocardiogram to evaluate EF and wall motion abnormalities given recent chest pain episode precipitating symptoms. Uncertain if that could have been an ischemic event. She denies history of VT. EKG shows no evidence of ischemic heart disease. Troponin is negative. BNP elevated more than baseline. Diuresed with IV Lasix 40 twice daily, strict I's and O's, fluid restriction, maintain on telemetry. Follows with Dr. Lea Hernández outpatient. (2) HTN (hypertension) Qualifiers: Hypertension type: essential hypertension Qualified Code(s): I10 - Essent ial (primary) hypertension Is this a current diagnosis for this admission?: Yes Plan: Uncontrolled. Resume patient's home BP meds. Will increase dose if needed. (3) Chest x-ray abnormality Is this a current diagnosis for this admission?: Yes Plan: On my review of chest x-ray, chronic COPD changes noted but I do notice a lot of interstitial opacities for which the distribution appears more to be interstitial lung disease moreso than pulmonary edema. I recommend the patient have a high-res CT scan done outpatient. Will rule out COVID-19. (4) PAF (paroxysmal atrial fibrillation) Is this a current diagnosis for this admission?: Yes Plan: Currently in sinus rhythm. Resume Tikosyn and Coreg. Continue warfarin. (5) COPD (chronic obstructive pulmonary disease) Qualifiers: COPD type: unspecified COPD Qualified Code(s): J44.9 - Chronic obstructive pulmonary disease, unspecified Is this a current diagnosis for this admission?: Yes Plan: Not in acute exacerbation. Nebs as needed. (6) Tobacco abuse Is this a current diagnosis for this admission?: Yes Plan: Nicotine replacement therapy will be offered. - Time Time Spent with patient: 35 or more minutes
--- NOTE | 2019-08-13 09:13 | ADVANCED CARE ---
- Diagnosis (1) CHF exacerbation Diagnosis Current: Yes (5) COPD (chronic obstructive pulmonary disease) Diagnosis Current: Yes Attendance: Patient to myself Resuscitation Status: Other - DNR/DNI in the setting of cardiac arrest. How ever, patient allows for intubation in the absence of cardiac arrest if done because she is dyspneic/suffocating. Discussion: We had a discussion about patient's chronic conditions and her CODE STATUS. Elaborately explained the situations in which she will need to have advanced directive. In the case of cardiac arrest, patient has declined any form of CPR or intubation. For this purposes, she will be a strict DNR. She has expressed that she hopes if she passes, it will be from her AAA as she has heard that it could kill people in a few seconds. In the setting that intubation is needed, in the absence of cardiac arrest, for dyspnea/suffocating/respiratory failure, she states that she would like to be intubated as she does not want to have a feeling that she is suffocating. Time Spent: 17mins
[2019-08-13] MEDS ORDERED: MAGNESIUM SULFATE/D5W 1 GM/100 ML RTUPB IV ONE (09:15)
[2019-08-13] MEDS ORDERED: LISINOPRIL 10 MG TABLET PO ONE (09:15)
[2019-08-13] MEDS: OXYCODONE HCL IR 5 MG TABLET PO PRN ×3 (10:39→22:12)
[2019-08-13] MEDS: CARVEDILOL 12.5 MG TABLET PO SCH ×2 (10:41→22:11)
[2019-08-13] MEDS ORDERED: ALBUTEROL SULFATE HFA (90 MCG/PUFF) 8 GM MDI IH PRN (10:42)
[2019-08-13] MEDS: DOFETILIDE 125 MCG CAPSULE PO SCH ×2 (10:43→22:13)
[2019-08-13] MEDS: DOCUSATE SODIUM 100 MG CAPSULE PO SCH ×2 (10:43→17:33)
[2019-08-13] MEDS ORDERED: ALBUTEROL SULFATE HFA (90 MCG/PUFF) 200 PUFF/8.5 GM MDI IH PRN (10:46)
--- NOTE | 2019-08-13 11:18 | EKG REPORT ---
SEVERITY:- BORDERLINE ECG - SINUS RHYTHM BORDERLINE PROLONGED QT INTERVAL : Confirmed by: Walter Nichols 13-Aug-2019 11:17:25
[2019-08-13] MEDS ORDERED: FUROSEMIDE INJ/PF 40 MG/4 ML SDV IV SCH (18:00)
[2019-08-13] MEDS ORDERED: WARFARIN SODIUM 3 MG TABLET PO SCH (22:00)
[2019-08-13] MEDS: LISINOPRIL 10 MG TABLET PO SCH (22:11)
[2019-08-13] MEDS: GABAPENTIN 300 MG CAPSULE PO SCH (22:11)
[2019-08-14] MEDS: GABAPENTIN 300 MG CAPSULE PO SCH ×2 (05:46→13:03)
[2019-08-14] MEDS: OXYCODONE HCL IR 5 MG TABLET PO PRN ×2 (05:46→13:15)
[2019-08-14 06:03] LABS: ABSOLUTE LYMPHOCYTES (AUTO) 0.9 10^3/uL (0.5-4.7); ABSOLUTE MONOCYTES (AUTO) 0.7 10^3/uL (0.1-1.4); EOSINOPHILS % (AUTO) 0.2 % (0-6); HEMOGLOBIN 11.5 g/dL (12.0-15.5); LYMPHOCYTES % (AUTO) 9.1 % (13-45); TOTAL CELLS COUNTED % (AUTO) 100 %
[2019-08-14 06:12] LABS: ABSOLUTE NEUT (AUTO) 8.3 10^3/uL (1.7-8.2); BASOPHILS % (AUTO) 0.2 % (0-2); HEMATOCRIT 33.4 % (36.0-47.0); MEAN CORPUSCULAR HEMOGLOBIN 30.6 pg (27.0-33.4); MEAN CORPUSCULAR HGB CONC 34.4 g/dL (32.0-36.0); MEAN CORPUSCULAR VOLUME 89 fl (80-97); MONOCYTES % (AUTO) 6.6 % (3-13); PLATELET COUNT 206 10^3/uL (150-450); RED BLOOD COUNT 3.75 10^6/uL (3.72-5.28); RED CELL DISTRIBUTION WIDTH 14.5 % (11.5-14.0); SEGMENTED NEUTROPHILS % (AUTO) 83.9 % (42-78); WHITE BLOOD COUNT 9.9 10^3/uL (4.0-10.5)
[2019-08-14 06:13] LABS: INTERNATIONAL RATION (INR) 2.81; PROTHROMBIN TIME 30.1 SEC (11.4-15.4)
[2019-08-14 06:26] LABS: BLOOD UREA NITROGEN 44 mg/dL (7-20); CALCIUM 8.6 mg/dL (8.4-10.2); CARBON DIOXIDE 31 mmol/L (22-30); CHLORIDE 102 mmol/L (98-107); CHOLESTEROL 236.89 mg/dL (0-200); GLUCOSE 122 mg/dL (75-110); POTASSIUM 4.3 mmol/L (3.6-5.0); TRIGLYCERIDES 125 mg/dL (<150)
[2019-08-14 06:37] LABS: DIRECT LDL 182 mg/dL (<100)
[2019-08-14 06:41] LABS: ANION GAP 5 (5-19)
[2019-08-14 09:26] LABS: APPEARANCE,URINE CLEAR; BILIRUBIN,URINE NEGATIVE (NEGATIVE); COLOR,URINE YELLOW; GLUCOSE, URINE NEGATIVE (NEGATIVE); KETONES,URINE NEGATIVE (NEGATIVE); LEUKOCYTE ESTERASE,URINE NEGATIVE (NEGATIVE); NITRITE,URINE NEGATIVE (NEGATIVE); PROTEIN,URINE NEGATIVE (NEGATIVE); URINE SPECIFIC GRAVITY 1.018; UROBILINOGEN,URINE NEGATIVE mg/dL (<2.0)
[2019-08-14] MEDS: CARVEDILOL 12.5 MG TABLET PO SCH (09:26)
[2019-08-14] MEDS: DOFETILIDE 125 MCG CAPSULE PO SCH (09:26)
[2019-08-14] MEDS: LISINOPRIL 10 MG TABLET PO SCH (09:26)
[2019-08-14] MEDS: DOCUSATE SODIUM 100 MG CAPSULE PO SCH ×2 (09:26→17:00)
[2019-08-14 15:31] VITALS: BP 134/54
--- NOTE | 2019-08-14 16:34 | XCELERA REPORT ---
[address] [address] Transthoracic Echocardiogram Report Name: FLORECITA REILLY I Age: 79 yrs Gender: Female : 1940 Patient Status: Inpatient Patient Location: [address] [place] [address] Study Date: 08/14/2019 11:24 AM Height: 67 in Weight: 170 lb BSA: 1.9 m2 Procedure: A two-dimensional transthoracic echocardiogram with color flow and Doppler was performed. Study Quality: Technically suboptimal. The study was technically limited with all images being suboptimal in quality. Reason For Study: CHF. / Chest Pain History: CHF. / Chest Pain. Ordering Physician: PAU FISHER Performed By: Rupinder Kelly Interpretation Summary The left ventricle is normal in size. There is borderline concentric left ventricular hypertrophy. LV EF is 55% to 60% Left ventricular systolic function is normal. LV diastolic function not assessed. The left ventricular wall motion is normal. There is no thrombus. Cannot assess ASD,VSD,or PFO. The right atrium is moderately dilated. The left atrium is moderately dilated. There is no evidence of mitral valve prolapse. There is no vegetation seen on the mitral valve. There is a trace amount of mitral regurgitation There is a bioprosthetic mitral valve. Paz is mild to moderate restenosi of the bioprosthetic mitral valve.But poor doppler interogation. There is no aortic valvular vegetation. There is no aortic valve stenosis There is aortic sclerosis without aortic stenosis. There is no LVOT obstruction. There is a trace to mild amount of aortic regurgitation There is no tricuspid stenosis. There is a mild amount of tricuspid regurgitation There is mild pulmonary hypertension by echo RVSP is 40 to 45 mm of Hg , with RA mean of 5 to 10. There is no pulmonic valvular stenosis. There is a trace amount of pulmonic regurgitation The aortic root is not well visualized but is probably normal size. The inferior vena cava appeared normal and decreased > 50% with respiration (RAP 5-10 mmHg) There is no pericardial effusion. MMode/2D Measurements & Calculations RVDd: 2.0 cm LVIDd: 4.8 cm FS: 17.2 % Ao root diam: 2.3 cm IVSd: 1.2 cm LVIDs: 3.9 cm EDV(Teich): 105.8 ml Ao root area: 4.3 cm2 LVPWd: 1.1 cm ESV(Teich): 67.9 ml LA dimension: 4.0 cm EF(Teich): 35.9 % LVOT diam: 2.0 cm LVOT area: 3.1 cm2 Doppler Measurements & Calculations MV V2 max: MV P1/2t max ella: Ao V2 max: AI max ella: 202.4 cm/sec 201.7 cm/sec 131.5 cm/sec 195.1 cm/sec MV max PG: MV P1/2t: 130.4 msec Ao max P.9 mmHgAI max P.4 mmHg MVA(P1/2t): 1.7 cm2 Ao V2 mean: 15.2 mmHg MV V2 mean: MV dec slope: 91.1 cm/sec AI dec slope: 87.5 cm/sec Ao mean P.4 cm/sec2 MV mean P.9 cm/sec2 3.7 mmHg AI P1/2t: 4.3 mmHg Ao V2 VTI: 32.4 cm 135.0 msec MV V2 VTI: CARYL(I,D): 2.2 cm2 44.7 cm MVA(VTI): 1.6 cm2 CARYL(V,D): 2.0 cm2 LV V1 max PG: SV(LVOT): 70.5 ml PA V2 max: PI end-d ella: 3.0 mmHg 77.5 cm/sec 86.1 cm/sec LV V1 mean PG: PA max P.4 mmHg 1.7 mmHg LV V1 max: 86.8 cm/sec LV V1 mean: 61.1 cm/sec LV V1 VTI: 23.0 cm TR max ella: AV P1/2t-pr_phl: MV P1/2t-pr_phl: 297.1 cm/sec 139.3 msec 130.4 msec TR max P.3 mmHg Left Ventricle The left ventricle is normal in size. There is borderline concentric left ventricular hypertrophy. LV EF is 55% to 60%. Left ventricular systolic function is normal. LV diastolic function not assessed. The left ventricular wall motion is normal. There is no thrombus. Cannot assess ASD,VSD,or PFO. Right Ventricle The right ventricle is not well visualized secondary to technical limitations. Atria The right atrium is moderately dilated. The left atrium is moderately dilated. Mitral Valve There is moderate mitral leaflet calcification. There is no evidence of mitral valve prolapse. There is no vegetation seen on the mitral valve. There is a trace amount of mitral regurgitation. There is a bioprosthetic mitral valve. Paz is mild to moderate restenosi of the bioprosthetic mitral valve.But poor doppler interogation. Aortic Valve There is no aortic valvular vegetation. There is no aortic valve stenosis. There is aortic sclerosis without aortic stenosis. There is no LVOT obstruction. There is a trace to mild amount of aortic regurgitation. Tricuspid Valve There is no tricuspid stenosis. There is a mild amount of tricuspid regurgitation. There is mild pulmonary hypertension by echo. RVSP is 40 to 45 mm of Hg , with RA mean of 5 to 10. Pulmonic Valve There is no pulmonic valvular stenosis. There is a trace amount of pulmonic regurgitation. Great Vessels The aortic root is not well visualized but is probably normal size. The inferior vena cava appeared normal and decreased > 50% with respiration (RAP 5-10 mmHg). Effusions There is no pericardial effusion. : PAU FISHER Lakshmi
--- NOTE | 2019-08-14 17:23 | PDOC DISCHARGE SUMMARY ---
Impression - Admit/DC Date/PCP Admission Date/Primary Care Provider: 08/13/19 09:06 Discharge Date: 08/14/19 - Discharge Diagnosis (1) CHF exacerbation Is this a current diagnosis for this admission?: Yes (2) Mitral stenosis Is this a current diagnosis for this admission?: Yes (3) HTN (hypertension) Is this a current diagnosis for this admission?: Yes (4) Chest x-ray abnormality Is this a current diagnosis for this admission?: Yes (5) PAF (paroxysmal atrial fibrillation) Is this a current diagnosis for this admission?: Yes (6) COPD (chronic obstructive pulmonary disease) Is this a current diagnosis for this admission?: Yes (7) Tobacco abuse Is this a current diagnosis for this admission?: Yes (8) HLD (hyperlipidemia) Is this a current diagnosis for this admission?: Yes - Additional Information Resuscitation Status: Other - DNR/DNI in the setting of cardiac arrest. However, patient allows for intubation in the absence of cardiac arrest if done because she is dyspneic/suffocating. Discharge Diet: Cardiac Discharge Activity: Activity As Tolerated, Balance Activity w/Rest, Weigh Daily Referrals: [facility] [Outside] (PATIENT WILL BE FOLLOWED BY DEPT. UPON D/C PATIENT WILL BE ON SELF QUARANTINE UNTIL CLEARED BY HEALTH DEPT. ONCE CLEARED PATIENT MAY THEN SCHEDULE AN APPT. WITH PRIMARY CARE PROVIDER.) LEA GLASS MD [NO LOCAL MD] - Prescriptions: Furosemide [Lasix] 40 mg PO DAILY #30 Furosemide [Lasix 20 mg Tablet] 20 mg PO QPM #30 tablet Home Medications: Carvedilol [Coreg 25 mg Tablet] 25 mg PO Q12 07/10/16 Dofetilide [Tikosyn 125 Mcg Capsule] 125 mcg PO Q12 07/10/16 Warfarin Sodium [Coumadin 4 mg Tablet] 4 mg PO MOWEFRSA 07/10/16 Oxycodone HCl 15 mg PO TIDP PRN 11/17/18 Oxycodone Myristate [Xtampza ER] 9 mg PO QPM 11/17/18 Lisinopril [Prinivil 10 mg Tablet] 20 mg PO Q12 #60 tablet 11/22/18 Gabapentin 300 mg PO TID 08/13/19 Warfarin Sodium [Coumadin 3 mg Tablet] 3 mg PO SUTUTH 08/13/19 Furosemide [Lasix 20 mg Tablet] 20 mg PO QPM #30 tablet 08/14/19 Furosemide [Lasix] 40 mg PO DAILY #30 08/14/19 History of Present Illiness History of Present Illness: FLORECITA REILLY is a 79 year old female with a history of atrial fibrillation, CHF, COPD, AAA, bioprosthetic valve replacement, who presents to the hospital with complaints of progressive shortness of breath for the past 1 week as well as leg swelling. Symptoms initially began with a 15-minute episode of substernal chest pain that she experienced on approximately 1 week ago. The symptoms resolved and has not recurred but she has subsequently noted increased shortness of breath and leg swelling mostly involving her feet bilaterally. The dyspnea is mostly on ambulation including ambulating distances across rooms in her home. Denies any nausea vomiting. Denies PND. Denies any sick contacts. Denies fever chills. Hospital Course Hospital Course: Patient was admitted for evaluation of shortness of breath and leg swelling. Chest x-ray showed some interstitial opacities. COVID-19 test results pending. BNP was noted to be elevated from baseline. She was admitted for acute on chronic diastolic heart failure. Patient was given some IV Lasix. Mild creatinine bump noted on the switch Lasix held today. Echocardiogram was obtained for EF assessment reassessment showed normal ejection fraction but with mild to moderate restenosis of her bioprosthetic mitral valve with normal LV wall motion. I have added a 20 mg evening dose to patient's daily Lasix dose. Have also given patient a printout of her echocardiogram to take it with her to see her country sales manager Dr. Lea Glass in the office. Patient's LDL was notably quite high and I have started patient on atorvastatin. Patient is therapeutic on her warfarin which she takes for paroxysmal atrial fibrillation. Patient's vitals remained stable and she is saturating in the high 90s on room air. She is safe and stable for discharge at this time. Physical Exam Vital Signs: Temp Pulse Resp BP Pulse Ox 97.5 F 65 16 134/54 H 100 08/14/19 15:23 08/14/19 15:23 08/14/19 15:23 08/14/19 15:23 08/14/19 15:23 Intake & Output 08/13/19 08/14/19 08/15/19 06:59 06:59 06:59 Intake Total 740 120 Output Total 200 150 Balance 540 -30 Weight 77.111 kg 74.8 kg General appearance: PRESENT: no acute distress, cooperative Respiratory exam: ABSENT: tachypnea Cardiovascular exam: ABSENT: tachycardia Neurological exam: PRESENT: alert, awake Results Laboratory Results: WBC 9.9 10^3/uL (4.0-10.5) 08/14/19 05:30 RBC 3.75 10^6/uL (3.72-5.28) 08/14/19 05:30 Hgb 11.5 g/dL (12.0-15.5) L 08/14/19 05:30 Hct 33.4 % (36.0-47.0) L 08/14/19 05:30 MCV 89 fl (80-97) 08/14/19 05:30 MCH 30.6 pg (27.0-33.4) 08/14/19 05:30 MCHC 34.4 g/dL (32.0-36.0) 08/14/19 05:30 RDW 14.5 % (11.5-14.0) H 08/14/19 05:30 Plt Count 206 10^3/uL (150-450) 08/14/19 05:30 Lymph % (Auto) 9.1 % (13-45) L 08/14/19 05:30 [place] % (Auto) 6.6 % (3-13) 08/14/19 05:30 Eos % (Auto) 0.2 % (0-6) 08/14/19 05:30 Baso % (Auto) 0.2 % (0-2) 08/14/19 05:30 Absolute Neuts (auto) 8.3 10^3/uL (1.7-8.2) H 08/14/19 05:30 Absolute Lymphs (auto) 0.9 10^3/uL (0.5-4.7) 08/14/19 05:30 Absolute Monos (auto) 0.7 10^3/uL (0.1-1.4) 08/14/19 05:30 Absolute Eos (auto) 0.0 10^3/uL (0.0-0.6) 08/14/19 05:30 Absolute Basos (auto) 0.0 10^3/uL (0.0-0.2) 08/14/19 05:30 Seg Neutrophils % 83.9 % (42-78) H 08/14/19 05:30 PT 30.1 SEC (11.4-15.4) H 08/14/19 05:30 INR 2.81 08/14/19 05:30 Sodium 137.4 mmol/L (137-145) 08/14/19 05:30 Potassium 4.3 mmol/L (3.6-5.0) 08/14/19 05:30 Chloride 102 mmol/L (98-107) 08/14/19 05:30 Carbon Dioxide 31 mmol/L (22-30) H 08/14/19 05:30 Anion Gap 5 (5-19) 08/14/19 05:30 BUN 44 mg/dL (7-20) H 08/14/19 05:30 Creatinine 1.50 mg/dL (0.52-1.25) H 08/14/19 05:30 Est GFR ( Amer) 41 (>60) L 08/14/19 05:30 Est GFR (MDRD) Non-Af 34 (>60) L 08/14/19 05:30 Glucose 122 mg/dL (75-110) H 08/14/19 05:30 Hemoglobin A1c % 5.6 % (4.7-6.0) 08/14/19 05:30 Calcium 8.6 mg/dL (8.4-10.2) 08/14/19 05:30 Magnesium 2.3 mg/dL (1.6-2.3) 08/14/19 05:30 Total Bilirubin 0.8 mg/dL (0.2-1.3) 08/13/19 04:55 Direct Bilirubin 0.0 mg/dL (0.0-0.4) 08/13/19 04:55 Neonat Total Bilirubin Not Reportable 08/13/19 04:55 Neonat Direct Bilirubin Not Reportable 08/13/19 04:55 Neonat Indirect Bili Not Reportable 08/13/19 04:55 AST 18 U/L (14-36) 08/13/19 04:55 ALT 13 U/L (<35) 08/13/19 04:55 Alkaline Phosphatase 84 U/L (38-126) 08/13/19 04:55 Troponin I < 0.012 ng/mL 08/13/19 04:55 NT-Pro-B Natriuret Pep 5440 pg/mL (<450) H 08/13/19 04:55 Total Protein 6.5 g/dL (6.3-8.2) 08/13/19 04:55 Albumin 3.8 g/dL (3.5-5.0) 08/13/19 04:55 Triglycerides 125 mg/dL (<150) 08/14/19 05:30 Cholesterol 236.89 mg/dL (0-200) H 08/14/19 05:30 LDL Cholesterol Direct 182 mg/dL (<100) H 08/14/19 05:30 VLDL Cholesterol 25.0 mg/dL (10-31) 08/14/19 05:30 HDL Cholesterol 34 mg/dL (>40) L 08/14/19 05:30 Urine Color YELLOW 08/14/19 08:00 Urine Appearance CLEAR 08/14/19 08:00 Urine pH 5.0 (5.0-9.0) 08/14/19 08:00 Ur Specific [place] 1.018 08/14/19 08:00 Urine Protein NEGATIVE mg/dL (NEGATIVE) 08/14/19 08:00 Urine Glucose (UA) NEGATIVE mg/dL (NEGATIVE) 08/14/19 08:00 Urine Ketones NEGATIVE mg/dL (NEGATIVE) 08/14/19 08:00 Urine Blood NEGATIVE (NEGATIVE) 08/14/19 08:00 Urine Nitrite NEGATIVE (NEGATIVE) 08/14/19 08:00 Urine Bilirubin NEGATIVE (NEGATIVE) 08/14/19 08:00 Urine Urobilinogen NEGATIVE mg/dL (<2.0) 08/14/19 08:00 Ur Leukocyte Esterase NEGATIVE (NEGATIVE) 08/14/19 08:00 Urine WBC (Auto) 1 /HPF 08/14/19 08:00 Urine RBC (Auto) 1 /HPF 08/14/19 08:00 U Hyaline Cast (Auto) 3 /LPF 08/14/19 08:00 Squamous Epi Cells Auto 1 /HPF 08/14/19 08:00 Urine Mucus (Auto) RARE /LPF 08/14/19 08:00 Urine Ascorbic Acid 20 (NEGATIVE) H 08/14/19 08:00 08/13/19 04:55 Troponin I < 0.012 NT-Pro-B Natriuret Pep 5440 H Impressions: Chest X-Ray 08/13/19 04:38 IMPRESSION: Minimal bibasilar densities suggesting atelectasis, with superimposed parenchymal scarring in the right lower lung. Plan Time Spent: Less than 30 Minutes Stroke Is this a Stroke Patient?: No Acute Heart Failure - Is this a Heart Failure Patient?: Yes Documentation of LVEF assessment?: Yes LVEF: LVEF Greater Than 40% Anticoagulant Therapy: Yes
[2019-08-14] MEDS ORDERED: WARFARIN SODIUM 4 MG TABLET PO SCH (22:00)
[2019-08-14] MEDS ORDERED: ATORVASTATIN CALCIUM 40 MG TABLET PO SCH (22:00)
== END 2019-08-14 18:40 | disposition home or self-care (01) | DRG 293 ==
LOC: ER 03:26 → EH 09:06 → 5 11:46
PROVIDERS: ADMIT Internal Medicine; ATTEND Internal Medicine
DX: I11.0 Hypertensive heart disease with heart failure (principal); I05.0 Rheumatic mitral stenosis; I48.0 Paroxysmal atrial fibrillation; J44.9 Chronic obstructive pulmonary disease, unspecified; E78.5 Hyperlipidemia, unspecified; I50.33 Acute on chronic diastolic (congestive) heart failure; Z60.2 Problems related to living alone; F17.210 Nicotine dependence, cigarettes, uncomplicated; Z66 Do not resuscitate; K21.9 Gastro-esophageal reflux disease without esophagitis; I73.9 Peripheral vascular disease, unspecified; E78.00 Pure hypercholesterolemia, unspecified; Z20.828 Contact with and (suspected) exposure to other viral communicable diseases; Z79.899 Other long term (current) drug therapy; Z79.01 Long term (current) use of anticoagulants; Z79.891 Long term (current) use of opiate analgesic; Z95.2 Presence of prosthetic heart valve; Z88.6 Allergy status to analgesic agent
CPT/HCPCS: 36415; 71045; 80048; 80053; 80061; 81001; 83036; 83735; 83880; 84484; 85025; 85610; 87635; 93005; 93010; 93306; 96374; 99285; C9803; J1940; J3475; J3490

== ENCOUNTER 2020-01-16 12:34 | Emergency (ER) | payer BC, MEDICARE ==
[2020-01-16] MEDS ORDERED: ACETAMINOPHEN 325 MG TABLET PO ONE (14:24)
--- NOTE | 2020-01-16 14:26 | ER Document Report ---
ED Medical Screen (RME) - General Chief Complaint: Foot Injury Stated Complaint: LEFT FOOT PAIN Time Seen by Provider: 01/16/20 14:15 TRAVEL OUTSIDE OF THE [place] IN LAST 30 DAYS: No - HPI Notes: 01/16/20 14:22 79-year-old female presents to the emergency room today for complaints of left foot pain, left ankle pain after she "heard a tear" in her foot 6 days ago. Patient states that her foot keeps falling asleep since this happened. Patient is on Coumadin for mitral valve placement, she is unsure of her INR. Denies any history of diabetes. Has not tried any agpw-[id number]-[id number] medications. Reports pain is 5 out of 5. I have greeted and performed a rapid initial assessment of this patient. A comprehensive ED assessment and evaluation of the patient, analysis of test results and completion of the medical decision making process will be conducted by additional ED providers. PHYSICAL EXAMINATION: GENERAL: Chronically ill, well-nourished and in no acute distress. Musculoskeletal: Normal range of motion. Discoloration to dorsal aspect of left foot with tenderness along the third fourth fifth metatarsals with tenderness to palpation along left lateral malleolus. Distal pulses +2 bilaterally equally. Noted purple discoloration of skin to dorsal aspect of left foot. Warm to touch bilaterally and equally. Unable to bear full weight NEUROLOGICAL: Normal speech, normal gait. SKIN: Warm, Dry, normal turgor, no rashes or lesions noted. 01/16/20 14:24 - Related Data Allergies/Adverse Reactions: oxymorphone HCl [From Opana] Allergy (Severe, Verified 08/13/19 12:38) tramadol [Tramadol] Adverse Reaction (Intermediate, Verified 08/13/19 12:38) Hallucinations Past Medical History - Social History Frequency of alcohol use: None Drug Abuse: None - Past Medical History Cardiac Medical History: Reports: Hx Atrial Fibrillation, Hx Congestive Heart Failure, Hx Coronary Artery Disease, Hx Hypercholesterolemia, Hx Hypertension, Hx Peripheral Vascular Disease Denies: Hx Heart Attack Pulmonary Medical History: Reports: Hx COPD Neurological Medical History: Denies: Hx Cerebrovascular Accident, Hx Seizures, Hx Parkinson's Disease Endocrine Medical History: Denies: Hx Diabetes Mellitus Type 2, Hx Hypothyroidism Renal/ Medical History: Denies: Hx End Stage Renal Disease, Hx Kidney Stones, Hx Ovarian Cysts, Hx Peritoneal Dialysis, Hx Pelvic Inflammatory Disease Malignancy Medical History: Denies: Hx Breast Cancer, Hx Cervical Cancer, Hx Lung Cancer, Hx Ovarian Cancer GI Medical History: Reports: Hx Gastroesophageal Reflux Disease. Denies: Hx Crohn's Disease, Hx Hiatal Hernia, Hx Irritable Bowel, Hx Liver Failure, Hx Pancreatitis, Hx Ulcer Musculoskeltal Medical History: Denies Hx Arthritis, Denies Hx Fibromyalgia, Denies Hx Multiple Sclerosis, Denies Hx Muscular Dystrophy Psychiatric Medical History: Denies: Hx Dementia, Hx Depression Traumatic Medical History: Denies: Hx Fractures Past Surgical History: Reports: Hx Cardiac Surgery - Mitral Valve Replacement, Hx Tonsillectomy, Hx Valve Replacement. Denies: Hx Bowel Surgery, Hx Cardiac Catheterization, Hx Coronary Artery Bypass Graft, Hx Coronary Stent - Immunizations Hx Diphtheria, Pertussis, Tetanus Vaccination: No Physical Exam - Vital signs Vitals: Temp Pulse Resp BP Pulse Ox 97.1 F 74 16 139/51 H 96 01/16/20 12:39 01/16/20 12:39 01/16/20 12:39 01/16/20 12:39 01/16/20 12:39 Course - Vital Signs Vital signs: Temp Pulse Resp BP Pulse Ox 97.1 F 74 16 139/51 H 96 01/16/20 12:39 01/16/20 12:39 01/16/20 12:39 01/16/20 12:39 01/16/20 12:39
--- NOTE | 2020-01-16 14:55 | RADIOLOGY REPORT (SQ) ---
EXAM DESCRIPTION: ANKLE LEFT COMPLETE; FOOT LEFT COMPLETE IMAGES COMPLETED DATE/TIME: 01/16/2020 2:39 pm REASON FOR STUDY: heard a tear x 6d, +pain, +swelling COMPARISON: None. NUMBER OF VIEWS: Six views. TECHNIQUE: AP, lateral and oblique radiographic images acquired of the left ankle and left foot. LIMITATIONS: None. FINDINGS: MINERALIZATION: Normal. BONES: No acute fracture or dislocation. No worrisome bone lesions. JOINTS: No effusions. SOFT TISSUES: No soft tissue swelling. No foreign body. OTHER: No other significant finding. IMPRESSION: No fracture. TECHNICAL DOCUMENTATION: JOB ID: [id number] 2010 [employer]- All Rights Reserved Reading location - IP/workstation name: [email or web address]
--- NOTE | 2020-01-16 14:55 | RADIOLOGY REPORT (SQ) ---
EXAM DESCRIPTION: ANKLE LEFT COMPLETE; FOOT LEFT COMPLETE IMAGES COMPLETED DATE/TIME: 01/16/2020 2:39 pm REASON FOR STUDY: heard a tear x 6d, +pain, +swelling COMPARISON: None. NUMBER OF VIEWS: Six views. TECHNIQUE: AP, lateral and oblique radiographic images acquired of the left ankle and left foot. LIMITATIONS: None. FINDINGS: MINERALIZATION: Normal. BONES: No acute fracture or dislocation. No worrisome bone lesions. JOINTS: No effusions. SOFT TISSUES: No soft tissue swelling. No foreign body. OTHER: No other significant finding. IMPRESSION: No fracture. TECHNICAL DOCUMENTATION: JOB ID: [id number] 2010 [employer]- All Rights Reserved Reading location - IP/workstation name: [email or web address]
[2020-01-16 15:26] LABS: ABSOLUTE BASOPHILS # (AUTO) 0.1 10^3/uL (0.0-0.2); ABSOLUTE EOSINOPHILS # (AUTO) 0.1 10^3/uL (0.0-0.6); ABSOLUTE LYMPHOCYTES (AUTO) 1.2 10^3/uL (0.5-4.7); ABSOLUTE MONOCYTES (AUTO) 0.4 10^3/uL (0.1-1.4); ABSOLUTE NEUT (AUTO) 5.6 10^3/uL (1.7-8.2); BASOPHILS % (AUTO) 0.8 % (0-2); EOSINOPHILS % (AUTO) 1.3 % (0-6); HEMATOCRIT 40.5 % (36.0-47.0); HEMOGLOBIN 13.8 g/dL (12.0-15.5); LYMPHOCYTES % (AUTO) 16.1 % (13-45); MEAN CORPUSCULAR HEMOGLOBIN 30.6 pg (27.0-33.4); MEAN CORPUSCULAR HGB CONC 34.1 g/dL (32.0-36.0); MEAN CORPUSCULAR VOLUME 90 fl (80-97); MONOCYTES % (AUTO) 6.1 % (3-13); PLATELET COUNT 196 10^3/uL (150-450); RED BLOOD COUNT 4.52 10^6/uL (3.72-5.28); RED CELL DISTRIBUTION WIDTH 13.9 % (11.5-14.0); SEGMENTED NEUTROPHILS % (AUTO) 75.7 % (42-78); TOTAL CELLS COUNTED % (AUTO) 100 %; WHITE BLOOD COUNT 7.4 10^3/uL (4.0-10.5)
[2020-01-16] MEDS ORDERED: OXYCODONE HCL IR 5 MG TABLET PO ONE (17:50)
--- NOTE | 2020-01-16 19:15 | ER Document Report ---
HPI - HPI Time Seen by Provider: 01/16/20 14:15 Pain Level: 3 Notes: 79-year-old female presents to the emergency room today for complaints of left foot pain, left ankle pain after she "heard a tear" in her foot 6 days ago. Patient states that her foot keeps falling asleep since this happened. Patient is on Coumadin for mitral valve placement, she is unsure of her INR. Denies any history of diabetes. Has not tried any [id number] medications. Reports pain is 5 out of 5. - ROS Systems Reviewed and Negative: Yes All other systems reviewed and negative - REPRODUCTIVE Reproductive: DENIES: : - MUSCULOSKELETAL Musculoskeletal: REPORTS: Extremity pain - L foot/ankle Past Medical History - General Information source: Patient - Social History Smoking Status: Never Smoker Frequency of alcohol use: None Drug Abuse: None Family History: Hypertension, Other - Heart disease - Past Medical History Cardiac Medical History: Reports: Hx Atrial Fibrillation, Hx Congestive Heart Failure, Hx Coronary Artery Disease, Hx Hypercholesterolemia, Hx Hypertension, Hx Peripheral Vascular Disease Denies: Hx Heart Attack Pulmonary Medical History: Reports: Hx COPD Neurological Medical History: Denies: Hx Cerebrovascular Accident, Hx Seizures, Hx Parkinson's Disease Endocrine Medical History: Denies: Hx Diabetes Mellitus Type 2, Hx Hypothyroidism Renal/ Medical History: Denies: Hx End Stage Renal Disease, Hx Kidney Stones, Hx Ovarian Cysts, Hx Peritoneal Dialysis, Hx Pelvic Inflammatory Disease Malignancy Medical History: Denies: Hx Breast Cancer, Hx Cervical Cancer, Hx Lung Cancer, Hx Ovarian Cancer GI Medical History: Reports: Hx Gastroesophageal Reflux Disease. Denies: Hx Crohn's Disease, Hx Hiatal Hernia, Hx Irritable Bowel, Hx Liver Failure, Hx Pancreatitis, Hx Ulcer Musculoskeletal Medical History: Denies Hx Arthritis, Denies Hx Fibromyalgia, Denies Hx Multiple Sclerosis, Denies Hx Muscular Dystrophy Psychiatric Medical History: Denies: Hx Dementia, Hx Depression Traumatic Medical History: Denies: Hx Fractures Past Surgical History: Reports: Hx Cardiac Surgery - Mitral Valve Replacement, Hx Tonsillectomy, Hx Valve Replacement. Denies: Hx Bowel Surgery, Hx Cardiac Catheterization, Hx Coronary Artery Bypass Graft, Hx Coronary Stent - Immunizations Hx Diphtheria, Pertussis, Tetanus Vaccination: No Hx Pneumococcal Vaccination: 11/07/11 Vertical Provider Document - CONSTITUTIONAL Notes: PHYSICAL EXAMINATION: GENERAL: Well-appearing, well-nourished and in no acute distress. HEAD: Atraumatic, normocephalic. EYES: Pupils equal round extraocular movements intact, conjunctiva are normal. ENT: Nares patent NECK: Normal range of motion LUNGS: No respiratory distress Musculoskeletal: Normal range of motion to L foot/ankle, no swelling, slight bruising to medial and lateral manoj and dorsum of foot. Strong dorsalis pedis pulse. Cap refill less than 3 seconds. NEUROLOGICAL: Normal speech. PSYCH: Normal mood, normal affect. SKIN: Warm, Dry, normal turgor, no rashes or lesions noted. - INFECTION CONTROL TRAVEL OUTSIDE OF THE [place] IN LAST 30 DAYS: No Course - Re-evaluation Re-evalutation: Ankle X-Ray 01/16/20 14:20 IMPRESSION: No fracture. Foot X-Ray 01/16/20 14:20 IMPRESSION: No fracture. - Vital Signs Vital signs: Temp Pulse Resp BP Pulse Ox 97.1 F 74 16 139/51 H 96 01/16/20 12:39 01/16/20 12:39 01/16/20 12:39 01/16/20 12:39 01/16/20 12:39 - Laboratory Result Diagrams: 01/16/20 14:58 Procedures - Immobilization Left foot Pre-Proc Neuro Vasc Exam: Normal Immobilizer type: Shadi wrap, Post-op shoe Performed by: PCT Post-Proc Neuro Vasc Exam: Normal Discharge - Discharge Clinical Impression: Injury of left foot Qualifiers: Encounter type: initial encounter Qualified Code(s): S99.922A - Unspecified injury of left foot, initial encounter Condition: Stable Disposition: HOME, SELF-CARE Additional Instructions: The x-ray of your foot and ankle are both negative for any fracture or dislocation. Please follow-up with orthopedics since this injury occurred a week ago and you are continuing to have significant pain. The x-rays do not rule out ligament injuries. Please call them tomorrow let them know you are seen in the emergency department and need follow-up. Referrals: BECCA ARAUZ JR, DO [ACTIVE PROVISIONAL STAFF] - Follow up as needed
[2020-01-16 19:46] VITALS: BP 156/75
== END 2020-01-16 19:42 | disposition home or self-care (01) ==
LOC: ER 12:34
DX: S90.32XA Contusion of left foot, initial encounter (principal); S90.02XA Contusion of left ankle, initial encounter; M79.672 Pain in left foot; M25.572 Pain in left ankle and joints of left foot; X50.9XXA Other and unspecified overexertion or strenuous movements or postures, initial encounter; Y93.89 Activity, other specified; I10 Essential (primary) hypertension; I25.10 Atherosclerotic heart disease of native coronary artery without angina pectoris; J44.9 Chronic obstructive pulmonary disease, unspecified; Z79.01 Long term (current) use of anticoagulants; Z95.2 Presence of prosthetic heart valve
CPT/HCPCS: 36415; 85025; 99284